=== PATIENT | female | born 1940 | race Caucasian/White ===

== ENCOUNTER → 2023-10-22 06:27 | Day surgery (SDC) | payer MEDICARE, SELFPAY ==
[2023-10-22 08:39] LABS: Glucose - Point of Care 172 mg/dl (70-99)
== END ==
LOC: GI 06:27
PROVIDERS: ATTENDING PHYSICIAN Internal Medicine Gastroenterology
DX: R13.10 Dysphagia, unspecified (principal); R12 Heartburn; Q39.9 Congenital malformation of esophagus, unspecified; K44.9 Diaphragmatic hernia without obstruction or gangrene; K31.89 Other diseases of stomach and duodenum; K29.50 Unspecified chronic gastritis without bleeding
CPT/HCPCS: 43239; 88305; 82962; 88342

== ENCOUNTER → 2023-11-11 10:27 | Outpatient (REF) | payer MEDICARE, SELFPAY ==
[2023-11-11 13:10] LABS: Urine Albumin Trace (Neg - Trace); Urine Bilirubin Negative (Negative); Urine Character Slightly Cloudy (Clear); Urine Color Yellow; Urine Glucose Negative (Negative); Urine Ketone Trace (Negative); Urine Leukocyte 2+ (Negative); Urine Nitrite Positive (Negative); Urine Occult Blood Negative (Negative); Urine Urobilinogen Negative (Neg - 1+)
[2023-11-11 14:19] LABS: Urine Amorphous Seen
[2023-11-11 14:20] LABS: Urine Bacteria Many (Negative); Urine Red Blood Cell 0-2 /HPF (0-2); Urine White Cell >100 /HPF (0-5)
== END ==
LOC: HWLAB 10:27
PROVIDERS: ATTENDING PHYSICIAN Nurse Practitioner Family; FAMILY PHYSICIAN Internal Medicine
DX: R30.0 Dysuria (principal)
CPT/HCPCS: 81003; 81015; 87077; 87086; 87186

== ENCOUNTER → 2023-11-20 11:27 | Outpatient (REF) | payer MEDICARE, SELFPAY ==
[2023-11-20 15:41] LABS: Urine Albumin 1+ (Neg - Trace); Urine Bilirubin Negative (Negative); Urine Character Slightly Cloudy (Clear); Urine Color Yellow; Urine Glucose 2+ (Negative); Urine Ketone Negative (Negative); Urine Leukocyte 2+ (Negative); Urine Nitrite Negative (Negative); Urine Occult Blood Negative (Negative); Urine Specific Gravity 1.025 (<1.030); Urine Urobilinogen Negative (Neg - 1+)
[2023-11-20 16:05] LABS: Urine Calcium Oxalate Crystals Present; Urine Red Blood Cell 0-2 /HPF (0-2)
[2023-11-20 16:06] LABS: Urine Bacteria Few (Negative)
== END ==
LOC: HWLAB 11:27
PROVIDERS: ATTENDING PHYSICIAN Nurse Practitioner Family; FAMILY PHYSICIAN Internal Medicine
DX: R30.0 Dysuria (principal)
CPT/HCPCS: 81003; 81015; 87086

== ENCOUNTER → 2023-11-30 13:02 | Outpatient (REF) | payer MEDICARE, SELFPAY | LOC: HWRAD 13:02 | PROVIDERS: ATTENDING PHYSICIAN Internal Medicine Gastroenterology; FAMILY PHYSICIAN Internal Medicine | DX: I85.00 Esophageal varices without bleeding (principal); K44.9 Diaphragmatic hernia without obstruction or gangrene | CPT/HCPCS: 76700 ==

== ENCOUNTER → 2024-01-18 13:29 | Outpatient (REF) | payer MEDICARE, SELFPAY | LOC: HWWDC 13:29 | PROVIDERS: ATTENDING PHYSICIAN Surgery; FAMILY PHYSICIAN Internal Medicine | DX: Z12.31 Encounter for screening mammogram for malignant neoplasm of breast (principal); Z80.3 Family history of malignant neoplasm of breast | CPT/HCPCS: 77063; 77067 ==

== ENCOUNTER → 2024-01-21 10:00 | Outpatient (REF) | payer MEDICARE, SELFPAY ==
[2024-01-21 12:46] LABS: % Basophils 0.9 % (0-2); % Eosinophils 6.2 % (0-6); % Immature Granulocytes 0.3 % (0-0.5); % Lymphocytes 21.5 % (20.5-51.1); % Monocytes 10.7 % (1.7-9.3); % Neutrophils 60.4 % (42.2-75.2); Absolute Basophils 0.1 10^3/uL (0-0.2); Absolute Eosinophils 0.5 10^3/uL (0-0.7); Absolute Lymphocytes 1.7 10^3/uL (1.2-3.4); Absolute Monocytes 0.9 10^3/uL (0.1-0.6); Absolute Neutrophils 4.8 10^3/uL (1.4-6.5); Hematocrit 44.4 % (37.0-47.0); Hemoglobin 14.6 g/dL (12.0-16.0); Mean Corp Hgb Conc. 32.9 g/dL (33.0-37.0); Mean Corpuscular Hgb 28.6 pg (27.0-31.0); Mean Corpuscular Volume 87.1 fL (81.0-99.0); Nucleated Red Blood Cells % 0 %; Platelet Count 431 10^3/uL (130-400); Red Cell Dist. Width 13.5 % (11.5-14.5); White Blood Cell Count 7.9 10^3/uL (4.8-10.8)
[2024-01-21 13:35] LABS: Urine Albumin Negative (Neg - Trace); Urine Bilirubin Negative (Negative); Urine Character Clear (Clear); Urine Color Yellow; Urine Glucose Negative (Negative); Urine Ketone Negative (Negative); Urine Leukocyte 1+ (Negative); Urine Nitrite Negative (Negative); Urine Occult Blood Negative (Negative); Urine Specific Gravity 1.015 (<1.030); Urine Urobilinogen Negative (Neg - 1+)
[2024-01-21 13:36] LABS: ALT (SGPT) 23 U/L (0-35); AST (SGOT) 25 U/L (14-36); Albumin 4.4 g/dl (3.5-5.0); Alkaline Phosphatase 117 U/L (38-126); Blood Urea Nitrogen 23 mg/dl (7-17); Calcium 9.8 mg/dl (8.4-10.2); Carbon Dioxide 31 mmol/L (22-30); Chloride 101 mmol/L (98-107); Glucose 188 mg/dl (70-99); HDL Cholesterol 50 mg/dl; LDL Cholesterol, Calculated 103 mg/dl; Potassium 4.6 mmol/L (3.5-5.1); Sodium 138 mmol/L (135-145); Total Bilirubin 0.8 mg/dl (0.2-1.3); Total Cholesterol 190 mg/dl (50-199); Triglyceride 187 mg/dl (10-149); Very Low Density Lipoprotein 37 mg/dl (0-30); eGFR > 60.00
[2024-01-21 13:42] LABS: Glycohemoglobin (HgbA1c) 7.9 % (4.0-5.6)
[2024-01-21 13:51] LABS: Free T4 1.18 ng/dl (0.78-2.19)
[2024-01-21 14:07] LABS: Microalbumin, Random Urine 4.4 mg/dl (0.6-1.7)
[2024-01-21 14:25] LABS: Urine Squamous Cell >30 /LPF (Few)
[2024-01-21 14:27] LABS: Urine Amorphous Seen; Urine Bacteria Many (Negative); Urine Red Blood Cell 0-2 /HPF (0-2); Urine White Cell 16-20 /HPF (0-5)
== END ==
LOC: HWLAB 10:00
PROVIDERS: ATTENDING PHYSICIAN Internal Medicine
DX: R53.1 Weakness (principal); I10 Essential (primary) hypertension; E11.9 Type 2 diabetes mellitus without complications
CPT/HCPCS: 36415; 80053; 80061; 81003; 81015; 82043; 83036; 84439; 84443; 85025

== ENCOUNTER → 2024-03-07 11:58 | Outpatient (REF) | payer MEDICARE, SELFPAY ==
[2024-03-07 15:26] LABS: Urine Albumin Negative (Neg - Trace); Urine Bilirubin Negative (Negative); Urine Character Slightly Cloudy (Clear); Urine Color Yellow; Urine Glucose 1+ (Negative); Urine Ketone Negative (Negative); Urine Leukocyte 2+ (Negative); Urine Nitrite Negative (Negative); Urine Occult Blood Negative (Negative); Urine Specific Gravity 1.015 (<1.030); Urine Urobilinogen Negative (Neg - 1+)
[2024-03-07 16:22] LABS: Urine Bacteria Many (Negative); Urine Red Blood Cell 0-2 /HPF (0-2)
== END ==
LOC: HWLAB 11:58
PROVIDERS: ATTENDING PHYSICIAN Internal Medicine Geriatric Medicine; FAMILY PHYSICIAN Internal Medicine
DX: R39.9 Unspecified symptoms and signs involving the genitourinary system (principal)
CPT/HCPCS: 36415; 81003; 81015; 87077; 87086; 87186

== ENCOUNTER 2024-07-12 06:29 | Inpatient (IN) | payer MEDICARE, SELFPAY ==
[2024-07-12] VITALS (19 sets, daily range): BP systolic 103–194; BP diastolic 67–113; BMI 28.1; BMI 27.4
--- NOTE | 2024-07-12 01:30 | ED.GENMED ---
History of Present Illness
<BRITTANIE Vasquez - Last Filed: 07/12/24 04:41>
General
Chief Complaint: Abdominal Symptoms
Source: patient
Time Seen by Provider: 07/12/24 01:28
Nursing documentation reviewed up to this point in time: agreed with
History of Present Illness
History of Present Illness:
Pt is a 83 yo F who presents to the ED via EMS for N/D. On the way to the ED, patient began to report chest pain and she states that is her causing her the most discomfort now. Pt states the nausea started yesterday and today she has had diarrhea
and dry heaving. Pt reports that the chest pain is located in the middle of her chest and does not radiate. She describes it as sharp. Pt states that she is now having pain in her throat. Pt denies vomiting, abdominal pain, fever.
Past History
<BRITTANIE Vasquez - Last Filed: 07/12/24 04:41>
Past History
ED Past Medical History: HTN and NIDDM
ED Past Surgical History: Orthopedic (Left knee surgery, rotator cuff surgery), Tonsilectomy and Other (Breast surgery); Negative Cholecystectomy
Social History
Tobacco: Non-smoker
Alcohol: Occasional
Drug: None
Personal:
Living: with family
Employment: Retired
Family History
Family History: CAD and Cancer
Review of Systems
<BRITTANIE Vasquez - Last Filed: 07/12/24 04:41>
Review of Systems
Allergies reviewed?: Yes
Constitutional: Reports no symptoms
Respiratory: Reports no symptoms
Cardiac: Reports chest pain
ABD/GI: Reports nausea and diarrhea
Neurological: Reports no symptoms
Phy Exam
<BRITTANIE Vasquez - Last Filed: 07/12/24 04:41>
General Physical Exam
General Presentation: moderate distress
General age: appears stated age
General Skin: dry
General Habitus: normal
General Mental: alert
General Hydration: dry mucous membranes
Cardiovascular Exam
Cardiovascular Exam: regular rate/rhythm
Pulmonary Exam
Pulmonary Exam: lungs clear
Gastrointestinal Exam
Gastrointestinal Exam: soft
Palpation: generalized: Minimal tenderness (epigastric)
Course
<BRITTANIE Vasquez - Last Filed: 07/12/24 04:41>
Orders/Labs/Results
Orders:
Orders
07/12/24 01:22
Electrocardiogram (*1) Urgent
Reason for Study: Chest Pain
EKG- Treatment ONCE
07/12/24 01:34
CMP [Comprehensive Metabolic Panel] Urgent
Complete Blood Count/With Diff Urgent
Lipase Urgent
Comment: ADDED
Troponin I Urgent
07/12/24 01:50
0.9% Sodium Chloride 1000 ml [Nss] 1,000 ml IV BOLUS
Morphine Sulfate 4 mg IV NOW STA
Ondansetron Injectable [Zofran] 4 mg IV NOW STA
Pantoprazole [Protonix IV] 40 mg IV NOW STA
07/12/24 03:03
Add On- LAB Urgent
Tests Added?: lipase
07/12/24 03:05
CT Chest Angio W/wo Iv Contras Urgent
Comment:
Reason For Exam: severe CP rad to back
07/12/24 03:55
Troponin I Urgent
07/12/24 04:34
Lactic Acid Urgent
07/12/24 04:35
GI tube insertion- Treatment ONCE
Abnormal Lab Results
07/12/24
01:34
WBC 12.2 H 10^3/uL
(4.8-10.8)
Plt Count 419 H 10^3/uL
(130-400)
MPV 10.9 H fL
(7.4-10.4)
Absolute Neuts (auto) 10.2 H 10^3/uL
(1.4-6.5)
Absolute Monos (auto) 0.7 H 10^3/uL
(0.1-0.6)
Neutrophils % 83.4 H %
(42.2-75.2)
Lymphocytes % 10.5 L %
(20.5-51.1)
Sodium 134 L mmol/L
(135-145)
Chloride 97 L mmol/L
(98-107)
Carbon Dioxide 19 L mmol/L
(22-30)
BUN 20 H mg/dl
(7-17)
Glucose 245 H mg/dl
(70-99)
07/12/24 01:34
07/12/24 01:34
Vital Signs
Initial and Last Documented VS:
Initial Vital Signs
Temp Pulse Resp BP Pulse Ox
98.4 F 92 14 178/85 99
07/12/24 01:23 07/12/24 01:23 07/12/24 01:23 07/12/24 01:23 07/12/24 01:23
Last Documented Vital Signs
Temp Pulse Resp BP Pulse Ox
98.4 F 96 19 156/79 91
07/12/24 01:23 07/12/24 04:15 07/12/24 04:15 07/12/24 04:00 07/12/24 04:15
<Nkechi Marquez, DO - Last Filed: 07/12/24 04:46>
Orders/Labs/Results
Orders:
Orders
07/12/24 01:22
Electrocardiogram (*1) Urgent
Reason for Study: Chest Pain
EKG- Treatment ONCE
07/12/24 01:34
CMP [Comprehensive Metabolic Panel] Urgent
Complete Blood Count/With Diff Urgent
Lipase Urgent
Comment: ADDED
Troponin I Urgent
07/12/24 01:50
0.9% Sodium Chloride 1000 ml [Nss] 1,000 ml IV BOLUS
Morphine Sulfate 4 mg IV NOW STA
Ondansetron Injectable [Zofran] 4 mg IV NOW STA
Pantoprazole [Protonix IV] 40 mg IV NOW STA
07/12/24 03:03
Add On- LAB Urgent
Tests Added?: lipase
07/12/24 03:05
CT Chest Angio W/wo Iv Contras Urgent
Comment:
Reason For Exam: severe CP rad to back
07/12/24 03:55
Troponin I Urgent
07/12/24 04:34
Lactic Acid Urgent
07/12/24 04:35
GI tube insertion- Treatment ONCE
Abnormal Lab Results
07/12/24
01:34
WBC 12.2 H 10^3/uL
(4.8-10.8)
Plt Count 419 H 10^3/uL
(130-400)
MPV 10.9 H fL
(7.4-10.4)
Absolute Neuts (auto) 10.2 H 10^3/uL
(1.4-6.5)
Absolute Monos (auto) 0.7 H 10^3/uL
(0.1-0.6)
Neutrophils % 83.4 H %
(42.2-75.2)
Lymphocytes % 10.5 L %
(20.5-51.1)
Sodium 134 L mmol/L
(135-145)
Chloride 97 L mmol/L
(98-107)
Carbon Dioxide 19 L mmol/L
(22-30)
BUN 20 H mg/dl
(7-17)
Glucose 245 H mg/dl
(70-99)
07/12/24 01:34
07/12/24 01:34
Vital Signs
Initial and Last Documented VS:
Initial Vital Signs
Temp Pulse Resp BP Pulse Ox
98.4 F 92 14 178/85 99
07/12/24 01:23 07/12/24 01:23 07/12/24 01:23 07/12/24 01:23 07/12/24 01:23
Last Documented Vital Signs
Temp Pulse Resp BP Pulse Ox
98.4 F 96 19 156/79 91
07/12/24 01:23 07/12/24 04:15 07/12/24 04:15 07/12/24 04:00 07/12/24 04:15
<BRITTANIE Vasquez - Last Filed: 07/12/24 04:41>
MDM/Problems Addressed
Differential Diagnosis Includes:
Acute pancreatitis, UT
<BRITTANIE Vasquez - Last Filed: 07/12/24 04:41>
*Critical Care Note
Total Time (30-74mins, 75-104mins- exclusive of procedures): Not Applicable
<Nkechi Marquez DO - Last Filed: 07/12/24 04:46>
*Radiology
Radiology exam reviewed: radiology read reviewed
*Pulse Oximetry
Patient hypoxic: no
*EKG
Interpreted by ED Provider?: Yes
Interpretation: normal
Comparison EKG: no changes (Unchanged from previous May 2023)
Rate: normal
Rhythm: sinus
Pony: normal axis
Interval: normal interval
QRS Pattern: normal QRS
Ischemia: no ischemia
*Canoe Inspector Interpretation
Rate: normal
Interpretation: normal
Rhythm: sinus
ED Attending Note
<BRITTANIE Vasquez - Last Filed: 07/12/24 04:41>
-
Portions of this chart may have been created with voice recognition software.� Occasional wrong word or��sound alike� substitutions may have occurred due to the inherent limitations of voice recognition software.
<Nkechi Marquez DO - Last Filed: 07/12/24 04:46>
ED Attending Note
Patient seen and examined by attending physician: Yes
I performed the substantive portion of visit, reviewed & personally made and approve the management plan that is documented in note by myself or MARIANGEL.: Yes
ED Attending Note:
This is an 83-year-old woman with history of hypertension, hyperlipidemia, irritable bowel syndrome, [id number] diabetes who complains of nausea, dry heaves that began yesterday, persisted throughout the day today accompanied with
nonbloody diarrhea throughout the day today. She continues with nausea, dry heaves and presents tonight with complaints of epigastric, lower substernal chest pain that has been intermittent, worse with dry heaves and occasionally radiates to her
back. Epigastric, lower substernal chest pain described as a pressure, burning in nature.
She has not had a fever nor chills. No coughing or shortness of breath. No diaphoresis no dizziness, no arm pain nor weakness.
GENERAL: 83-year-old woman appears her stated age, awake and alert, appears in moderate distress, moderately uncomfortable, somewhat restless. Easily communicative. Mildly hypertensive. Normal heart rate, normal respiratory rate, afebrile. Pulse
ox is 99% on room air.
EYE: pupils equal and reactive. anicteric
NECK: Supple, nontender, no meningismus, no significant adenopathy.
ENT: posterior pharynx is clear, oral mucosa is dry. No rhinorrhea.
CARDIAC: Regular rate and rhythm. no murmur.
LUNGS: Clear breath sounds bilaterally, no acute respiratory distress, no wheezes/rales/rhonchi
ABDOMEN: Soft, nondistended, minimal tenderness superior epigastric region with deep palpation only, no r/g, no cvat. normoactive BS.
NEUROLOGICAL: Alert and oriented x3, no focal neuro deficits.
SKIN: Warm and dry, normal color, skin intact. No rash.
MUSCULOSKELETAL: No C/C/E. peripheral pulses are full and equal b/l. No palpable tenderness.
PSYCH: Mildly anxious related to pain, somewhat restless but cooperative.
Concern for acute gastroenteritis, ACS, GERD, pancreatitis, cholecystitis, aortic dissection.
EKG is reassuring, unremarkable and unchanged from previous May 2023.
Labs are pending.
Clinically patient appears at least mildly dehydrated. Will initiate IV fluids, will medicate for nausea with Zofran, potential GERD with Protonix and will give an IV dose of morphine for pain.
Will consider imaging depending on clinical course and results.
Patient is somewhat more comfortable after IV pain medication, Protonix and Zofran. She has had no vomiting but continues with moderate lower substernal chest pain and continues with persistent nausea.
Labs show mildly elevated white blood cell count, mild prerenal azotemia. Moderately elevated random glucose of 245. Troponin is negative x 2.
CT angiogram of the chest shows no dissection, no PE, clear lung gaxiola but there is note of a very large hiatal hernia, with most of the stomach in the chest that is moderately distended. With ongoing discomfort, nausea concern for potential
incarcerated hiatal hernia thus will check lactic acid and will insert NG tube.
Will continue IV fluids, will admit to hospitalist service. Consider surgical consult.
Discharge Plan
Departure
Patient Disposition: Admit
Date of Disposition: 07/12/24
Time of Disposition: 04:45
Admit to: Med/Surg
Admit to doctor: Manny
Presentation/result/management discussed w/ accepting MD/DO: Hospitalist
Condition: Fair
Discharge Problem:
Intractable nausea and vomiting, Large hiatal hernia
Prescriptions:
No Action
atenolol 25 MG tablet
25 mg PO HS
omeprazole 20 MG capsule,delayed release(DR/EC)
20 mg PO DAILY
metformin 500 MG tablet extended release 24 hr
500 mg PO BID@0800,1700
celecoxib [Celebrex] 200 mg Capsule
200 mg PO DAILY
atorvastatin [Lipitor] 20 mg Tablet
20 mg PO HS
loperamide 2 mg Tablet
2 mg PO Q4HPRN PRN (Reason: diarrhea)
famotidine [Pepcid] 20 mg Tablet
20 mg PO HS
sertraline 25 mg Tablet
25 mg PO QPM
gabapentin 100 mg Capsule
200 mg PO HS
gabapentin 100 mg Capsule
300 mg PO DAILY
vitamin E 268 mg (400 unit) Capsule
268 mg PO DAILY
cholecalciferol (vitamin D3) [Vitamin D3] 25 mcg (1,000 unit) Capsule
25 mcg PO DAILY
coQ10 (ubiquinol) 100 mg Capsule
100 mg PO DAILY
Interventions
Interventions:
*Risk Screen - Suicide Last Done: 07/12/24 01:23
*General Assessment Last Done: 07/12/24 01:23
*Neglect/Abuse Screening Last Done: 07/12/24 01:23
ED- Fall Risk Assessment Last Done: 07/12/24 02:03
*ED COVID-19 Vaccine History Last Done: 07/12/24 01:23
SD-Quyast-Hrzalfanir Assessment Last Done: 07/12/24 02:03
Discharge Date and Time
Print Language: SETSWANA
[2024-07-12 01:44] LABS: % Basophils 0.2 % (0-2); % Eosinophils 0.2 % (0-6); % Immature Granulocytes 0.3 % (0-0.5); % Lymphocytes 10.5 % (20.5-51.1); % Monocytes 5.4 % (1.7-9.3); % Neutrophils 83.4 % (42.2-75.2); Absolute Lymphocytes 1.3 10^3/uL (1.2-3.4); Absolute Monocytes 0.7 10^3/uL (0.1-0.6); Absolute Neutrophils 10.2 10^3/uL (1.4-6.5); Hematocrit 43.9 % (37.0-47.0); Hemoglobin 14.6 g/dL (12.0-16.0); Mean Corp Hgb Conc. 33.3 g/dL (33.0-37.0); Mean Corpuscular Hgb 29.7 pg (27.0-31.0); Mean Corpuscular Volume 89.2 fL (81.0-99.0); Mean Platelet Volume 10.9 fL (7.4-10.4); Nucleated Red Blood Cells % 0 %; Platelet Count 419 10^3/uL (130-400); Red Blood Cell Count 4.92 10^6/uL (4.20-5.40); Red Cell Dist. Width 12.9 % (11.5-14.5); White Blood Cell Count 12.2 10^3/uL (4.8-10.8)
[2024-07-12] MEDS: ZOFRAN 4 MG IV ×3 (01:56→22:26)
[2024-07-12 01:59] LABS: ALT (SGPT) 23 U/L (0-35); AST (SGOT) 29 U/L (14-36); Albumin 4.8 g/dl (3.5-5.0); Alkaline Phosphatase 109 U/L (38-126); Blood Urea Nitrogen 20 mg/dl (7-17); Calcium 9.4 mg/dl (8.4-10.2); Carbon Dioxide 19 mmol/L (22-30); Chloride 97 mmol/L (98-107); Estimated Creatinine Clearance 56 ml/min; Glucose 245 mg/dl (70-99); Potassium 4.4 mmol/L (3.5-5.1); Sodium 134 mmol/L (135-145); Total Bilirubin 0.8 mg/dl (0.2-1.3); Total Protein 7.3 g/dl (6.3-8.2); eGFR > 60.00
[2024-07-12] MEDS: PROTONIX IV 40 MG IV ×2 (02:00→19:46)
[2024-07-12] MEDS: MORPHINE SULFATE 4 MG IV (02:00)
[2024-07-12] MEDS: NSS 1000 IV ×2 (02:00→13:52)
[2024-07-12 02:09] LABS: Troponin I < 0.012 ng/ml
--- NOTE | 2024-07-12 02:46 | EDRN ---
Assisted patient to bedside commode and back in bed resting, reports still nauseated, however has not vomited, Dr. Marquez is aware
--- NOTE | 2024-07-12 03:56 | EDRN ---
Patient back from CT scan, assisted ot bedside commode to urinate and hooked back up to monitor, repeat troponin sent and lights turned down for comfort, call juarez in reach.
[2024-07-12 04:02] LABS: Lipase 119 U/L (23-300)
--- NOTE | 2024-07-12 04:23 | EDRN ---
Patient up to bedside commode to urinate and back in bed resting comfortably at this time, call juarez in reach.
[2024-07-12 04:29] LABS: Troponin I < 0.012 ng/ml
--- NOTE | 2024-07-12 05:00 | EDRN ---
Purwick in place for patient, call juarez in reach no further complaints.
[2024-07-12 05:41] LABS: Lactic Acid 0.9 mmol/L (0.7-2.0)
--- NOTE | 2024-07-12 06:26 | EDRN ---
NG tube was attempted twice both times tube goes in and she starts to drive heave expelling it into her mouth, informed Dr. Bryant who is in to work on admission.
[2024-07-12] MEDS: DILAUDID 0.5 MG IV ×3 (06:33→22:29)
--- NOTE | 2024-07-12 06:50 | HPS.HSE ---
Family Physician
-
Family Physician: Gurvinder Fink
Chief Complaint
-
Chest Pain / Back Pain
History of Present Illness
Patient is an 83y F with PMH significant for GERD / hiatal hernia, DM-II and DDD / back pain who presents to ED complaining of N/V, chest pain and back pain. Patient states that she has appreciated increased symptoms which she attributes to her
hiatal hernia over the past week or two. She cites reflux, epigastric discomfort and decreased appetite. She ran out of her omeprazole about 10 days ago and has been unable to get this refilled.
Yesterday, patient began to feel nauseated and started to have retching / dry heaves. She had a few episodes of actual non-bloody emesis.
Her symptoms lasted into the evening and patient presented to the ED for further evaluation and treatment.
Upon arrival here, patient developed severe chest pain and midback pain.
CT scan was performed which showed large hiatal hernia with entire stomach in the thoracic cavity.
NG placement was attempted unsuccessfully by ED staff. Patient had difficulty tolerating the procedure.
Medical History
Past Medical History
Past Medical History: Reports Other
Additional Past Medical History:
Hypertension
DM-II
GERD / Hiatal Hernia
Lumbar DDD / Radiculopathy
Fibrocystic Breast Disease
Past Surgical History: Reports Other
Additional Past Surgical History:
Bilateral Breast Biopsies (benign)
Left TKA
MILD Procedure (2023)
Left Rotator Cuff Repair
Social History
Tobacco: Non-smoker
Alcohol: Occasional (Rarely)
Drug: None
Family History
Family History: Not pertinent
Allergies / Home Medications
Allergies reflects when Allergies were last updated in [facility].
Home Medications with original date entered in [facility]
Allergy/Medication List:
Patient cannot recall her current med list. Will need form med rec in the AM.
Review of Systems
-
History Source: Patient
A 12 point ROS was completed and negative except as noted: Yes
Constitutional: Reports Fatigue; Denies Fever or Chills
EENT: Denies Sore Throat
Respiratory: Denies Cough or Trouble Breathing
Cardiac: Reports Chest Pain; Denies Palpitations
Abdomen/GI: Reports Abdominal Pain, Nausea, Vomiting and Diarrhea
: Denies Dysuria or Frequency
Musculoskeletal: Denies Joint Pain or Edema
Neurological: Denies Dizzy or Headache
Psych: Denies Depression or Anxiety
Physical Exam
Vital Signs
Vital Signs
Temp Pulse Resp BP Pulse Ox
98.4 F 102 15 158/67 94
07/12/24 01:23 07/12/24 04:45 07/12/24 04:45 07/12/24 05:00 07/12/24 04:45
Physical Exam
General: Other (83y F in mild distress due to discomfort.)
HEENT: Other (Dry MM. Neck supple.)
Respiratory: Clear; No Wheezes, Rales or Rhonchi
Cardiac: S1/S2 and Regular Rhythm; No Murmur
GI: Soft, Non Tender, Non Distended and Normal Bowel Sounds
Musculoskeletal: No Clubbing, No Cyanosis and No Edema
Neuro: AO x 3
Laboratory Results
-
07/12/24 01:34
07/12/24 01:34
Laboratory Results
Lactic Acid 0.9 mmol/L (0.7-2.0) 07/12/24 04:37
Total Bilirubin 0.8 mg/dl (0.2-1.3) 07/12/24 01:34
AST 29 U/L (14-36) 07/12/24 01:34
ALT 23 U/L (0-35) 07/12/24 01:34
Alkaline Phosphatase 109 U/L (38-126) 12/17/24 01:34
Troponin I < 0.012 ng/ml 07/12/24 03:55
Lipase 119 U/L (23-300) 07/12/24 01:34
Impression/Plan
-
A/P: Patient is an 83y F with PMH significant for HTN, DM-II and hiatal hernia who presents to ED complaining of N/V and chest pain.
Hiatal Hernia / GERD
Nausea / Chest Pain secondary to the above
- Admit for further evaluation and treatment.
- CT done in the ED shows large hiatal hernia with entire stomach in the thoracic cavity.
- Attempt NG decompression if patient will tolerate.
- Pain control, IV PPI, supportive care.
- GI and Surgery evaluations for additional recommendations.
- Follow for any new / worsening symptoms.
- Lactate level was normal.
Benign Hypertension
- BP elevated in the ED likely due to discomfort.
- Continue pain control.
DM-II
- Stable. Follow glucose and cover with SSI as needed.
- Update A1C.
Lumbar DDD / Radiculopathy
- Chronic pain secondary to the above.
- Not much improvement following MILD procedure earlier this year.
- Holding PO meds for now - resume gabapentin / pain control once able.
DVT Prophylaxis: SCDs
Code Status: Full
--- NOTE | 2024-07-12 11:46 | CON.GS ---
Medical History
-
Chief Complaint: Chest/abdominal pain
History of Present Illness:
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
radiating to her central back. Symptoms began on Thursday. No clear history of eating a large bulky meal. She reports poor appetite over the past week. She she eats mostly small soft meals. No recent weight loss. She has issues with reflux, as
well as issues with medical noncompliance due to obtaining PPI medications. Occasional regurgitation. She denies any prior episodes of obstruction, nausea, or vomiting. No hemoptysis. Her last EGD was on 10/22/2023 and notable for a tortuous
esophagus and large paraesophageal hernia. Workup in the ED was notable for a leukocytosis to 12, no significant anemia with Hb 14, hyponatremia and hypokalemia consistent with gastric volume loss, and CT scan of the chest with no evidence of a
aneurysm or dissection and a large paraesophageal hernia.
Currently she states that her symptoms have resolved. She denies any chest or abdominal discomfort. No nausea or vomiting.
Past Medical History
Past Medical History: GERD, HTN, NIDDM and Other (Lumbar back pain, obesity)
Past Surgical History: Orthopedic (MILD procedure, L TKA) and Other (Bl breast biopsy)
Social History
Tobacco: Non-Smoker
Alcohol: None
Drug: None
Family History
Family History: Reviewed & Not Pertinent
Allergies / Home Medications
Allergy/AdvReac Type Severity Reaction Status Date / Time
nitrofurantoin Allergy Intermediate Rash Verified 07/12/24 01:27
[From Macrodantin]
sulfamethoxazole Allergy Mild Rash Verified 07/12/24 01:27
[From Bactrim]
trimethoprim [From Bactrim] Allergy Mild Rash Verified 07/12/24 01:27
�Medication �Instructions �Recorded �Confirmed �Type
atenolol 25 mg tablet 25 mg PO HS Blood Pressure 04/01/17 07/12/24 History
metformin 500 mg tablet,extended 500 mg PO BID Diabetes 04/01/17 07/12/24 History
release 24 hr
omeprazole 20 mg capsule,delayed 20 mg PO DAILY Gastrointestinal 04/01/17 07/12/24 History
release Issue
atorvastatin 20 mg tablet (Lipitor) 20 mg PO HS High Cholesterol 05/29/23 07/12/24 History
celecoxib 200 mg capsule (Celebrex) 200 mg PO DAILY Pain 05/29/23 07/12/24 History
cholecalciferol (vitamin D3) 25 25 mcg PO DAILY Supplement 05/29/23 07/12/24 History
mcg (1,000 unit) capsule (Vitamin
D3)
gabapentin 100 mg capsule 200 mg PO BID Pain 05/29/23 07/12/24 History
sertraline 25 mg tablet 25 mg PO QPM Mental Health/Anxiety 05/29/23 07/12/24 History
vitamin E 268 mg (400 unit) capsule 268 mg PO DAILY Supplement 05/29/23 07/12/24 History
acetaminophen 500 mg tablet 1,000 mg PO BID 07/12/24 07/12/24 History
(Tylenol Extra Strength)
alprazolam 0.25 mg tablet (Xanax) 0.25 mg PO DAILYPRN PRN panic 07/12/24 07/12/24 History
attacks
amlodipine 5 mg-benazepril 40 mg 1 cap PO DAILY 07/12/24 07/12/24 History
capsule
azithromycin 250 mg tablet 250 mg PO DAILY 07/12/24 07/12/24 History
propranolol 60 mg capsule,24 60 mg PO HS 07/12/24 07/12/24 History
hr,extended release
Review of Systems
-
A 10 point review of systems was completed, and was negative except as per HPI.
Physical Exam
Vital Signs
Temp Pulse Resp BP Pulse Ox
98.4 F 102 12 115/86 96
07/12/24 01:23 07/12/24 11:00 07/12/24 11:00 07/12/24 11:00 07/12/24 11:00
07/11/24 07/12/24 07/13/24
06:59 06:59 06:59
Actual Weight 63 kg
Body Mass Index (BMI) 28.1
Lab Results
07/12/24 01:34
07/12/24 01:34
WBC 12.2 10^3/uL (4.8-10.8) H 07/12/24 01:34
Hgb 14.6 g/dL (12.0-16.0) 07/12/24 01:34
Hct 43.9 % (37.0-47.0) 07/12/24 01:34
Plt Count 419 10^3/uL (130-400) H 07/12/24 01:34
Abs Immat Gran (auto) 0.0 10^3/uL (0-0.05) 07/12/24 01:34
Neutrophils % 83.4 % (42.2-75.2) H 07/12/24 01:34
Physical Exam
General: Well Developed, Well Nourished and No Apparent Distress
HEENT: Normocephalic and Anicteric
Respiratory: Non Labored Respirations
Cardiac: Regular Rhythm
GI: Soft, Non Tender, Non Distended and Other (Non-peritoneal)
Musculoskeletal: No Edema
Skin: Warm and Dry
Neuro: Nonfocal/Grossly Intact
Data Reviewed
-
CT Scan: Image Personally Visualized and interpreted and Report Reviewed by me
Labs: Labs Reviewed by me
Old Records: Reviewed
Assessment / Plan
-
Patient is an 83 yo F p/w GOO secondary to large type III paraesophageal hernia
Clinical symptoms of abdominal/chest discomfort and nausea have resolved; indicative that she is spontaneously decompressing. Discussed utility of NGT which was attempted overnight, okay to hold off on repeated placement at this time, however, we
discussed that should she develop recurrent symptoms would recommend placement. The natural history and pathophysiology of paraesophageal hernias was discussed. Workup including prior EGD and CT scan were reviewed. We discussed a laparoscopic
paraesophageal hernia repair with possible fundoplication. Operative repair is indicated given her symptomatic nature with GERD and dysphagia. No need for urgent repair at this time. Tentative plan for period of decompression with NPO and IVF.
Tentative plan for a UGI to confirm passage of contrast and lack of obstruction prior to initiating a clear liquid diet. Will tentatively plan on discharge on full liquids for 1 to 2 weeks with slow advancement back to a soft diet. Plan for
outpatient follow-up to further discuss and finalize plans for operative repair. All questions answered.
-- Admit to Medicine
-- NPO, IVF
-- UGI tomorrow
-- PPI daily
-- Pending above, outpatient follow-up to further discuss and finalize operative plans
--- NOTE | 2024-07-12 11:47 | W.PN.HOSP.TC ---
Today's Communication/Plan
-
Surgery eval
NPO till surgery see pt
Assessment / Plan
Assessment / Plan
83-year-old female presented with chest pain and back pain. Acid reflux symptoms she ran out of Prilosec 10 days ago and unable to get refilled. Patient felt nauseated. She said she has not been following precautions like small meals, head
elevation, etc. Also ran out of PPI
CT angiography of the chest-no evidence of thoracic artery aneurysm or dissection. Moderate coronary calcification. Large hiatal hernia.
CVS: S1-S2 normal
Chest: CTA B/L
Abdomen: Soft, NT / Bowel sounds present
Extremities: No edema, normal pulses
DISEASE INTERVENTION SPECIALIST: Non focal exam
# Symptomatic hiatal hernia/GERD
CT shows large hiatal hernia with end of stomach and thoracic cavity
Attempts at NG tube decompression-patient did not tolerate
Continue PPI supportive care
EGD 10/14/2023-tortuous esophagus with possible varices. Erythematous mucosa in the antrum biopsied large hiatal hernia with gastric rotation
Hold NSAIDs
Surgery consultation
# Hypertension-on atenolol as outpatient. Propranolol is also part of the med list need to confirm.
Patient is also on amlodipine/benazepril as outpatient
As needed IV meds while n.p.o.
# History of esophageal varices-ultrasound of the liver normal echotexture and size. No cirrhosis.
# Mild hyponatremia-follow
# Diabetes-on metformin 5 mg twice daily as outpatient
Accu-Cheks and sliding scale coverage
# Anxiety-hold sertraline. On Xanax as needed as outpatient. Use Ativan as needed while n.p.o.
# Hyperlipidemia-hold Lipitor while n.p.o.
# Lumbar radiculopathy/DDD
# DVT prophylaxis-SCDs
# Full code
D/w Daughter at bed side
Discussed with GI. Will cancel consultation
Anticipated Discharge: 24 - 48 hours
Subjective/Interval History
-
Date of Service: July 12, 2024
Objective Data
-
Labs:
Laboratory Results
07/12/24
01:34
WBC 12.2 H
Hgb 14.6
Hct 43.9
Plt Count 419 H
Sodium 134 L
Potassium 4.4
Chloride 97 L
Carbon Dioxide 19 L
BUN 20 H
Creatinine 0.6
Glucose 245 H
Calcium 9.4
Total Bilirubin 0.8
AST 29
ALT 23
Alkaline Phosphatase 109
Vital Signs:
Vital Signs
Temp Pulse Resp BP Pulse Ox
98.4 F 102 12 115/86 96
07/12/24 01:23 07/12/24 11:00 07/12/24 11:00 07/12/24 11:00 07/12/24 11:00
[2024-07-12 14:03] LABS: Glucose - Point of Care 129 mg/dl (70-99)
--- NOTE | 2024-07-12 14:54 | CM ---
Chart reviewed. Here for symptomatic hiatal hernia. She lives alone in a [facility] home. She's independent with walker. She drives. She is retired. No +SDOHs. Receiving home PT/OT with [facility]. She has active PCP and pharmacy.
ANTICIPATED DISCHARGE PLAN: Home with [facility] services, when medically cleared.
[2024-07-12 15:13] LABS: Urine Albumin 2+ (Neg - Trace); Urine Bilirubin Negative (Negative); Urine Character Clear (Clear); Urine Color Yellow; Urine Glucose 1+ (Negative); Urine Ketone 2+ (Negative); Urine Leukocyte 2+ (Negative); Urine Nitrite Negative (Negative); Urine Occult Blood 1+ (Negative); Urine Urobilinogen Negative (Neg - 1+)
[2024-07-12 15:32] LABS: Urine Bacteria Many (Negative); Urine Red Blood Cell 0-2 /HPF (0-2); Urine Squamous Cell 0-2 /LPF (Few); Urine White Cell 21-25 /HPF (0-5)
--- NOTE | 2024-07-12 16:15 | PTCARENOTE ---
Addendum entered by Moira Kraft RN 07/12/24 18:48:
No relief of nausea from zofran IV. Dr. Ferrara notified, Tigan ordered and given. Pt also c/o throat pain, medicated with dilaudid IV with moderate relief noted.
Original Note:
Received from ED, c/o nausea. BP elevated 150/100. Allowing pt to settle in room, will recheck BP. Medicated with zofran, no vomiting at present.
[2024-07-12] MEDS: NOVOLOG FLEXPEN-MODERATE RESISTANCE SC ×3 (16:48→19:05)
[2024-07-12] MEDS: PROTONIX IV IV (16:48)
[2024-07-12] MEDS: NSS (PRESERVATIVE FREE) IV (16:49)
[2024-07-12 17:24] LABS: Glucose - Point of Care 163 mg/dl (70-99)
[2024-07-12] MEDS: TIGAN 200 MG IM (17:53)
[2024-07-12] MEDS: NSS (PRESERVATIVE FREE) 10 ML IV (19:46)
[2024-07-13] VITALS (7 sets, daily range): BP systolic 142–183; BP diastolic 76–109; BMI 27.7
[2024-07-13 00:13] LABS: Glucose - Point of Care 175 mg/dl (70-99)
[2024-07-13] MEDS: NSS 1000 IV ×4 (01:52→22:14)
[2024-07-13 06:23] LABS: Glucose - Point of Care 126 mg/dl (70-99)
[2024-07-13] MEDS: NOVOLOG FLEXPEN-MODERATE RESISTANCE SC ×2 (08:11→12:01)
[2024-07-13 08:13] LABS: Hematocrit 39.7 % (37.0-47.0); Mean Corp Hgb Conc. 32.7 g/dL (33.0-37.0); Mean Corpuscular Hgb 29.8 pg (27.0-31.0); Mean Corpuscular Volume 91.1 fL (81.0-99.0); Mean Platelet Volume 10.9 fL (7.4-10.4); Platelet Count 366 10^3/uL (130-400); Red Blood Cell Count 4.36 10^6/uL (4.20-5.40); Red Cell Dist. Width 13.1 % (11.5-14.5); White Blood Cell Count 11.4 10^3/uL (4.8-10.8)
[2024-07-13] MEDS: NSS (PRESERVATIVE FREE) 10 ML IV ×2 (08:17→19:23)
[2024-07-13] MEDS: PROTONIX IV 40 MG IV ×2 (08:17→19:25)
[2024-07-13 08:46] LABS: Blood Urea Nitrogen 20 mg/dl (7-17); Calcium 8.8 mg/dl (8.4-10.2); Carbon Dioxide 24 mmol/L (22-30); Chloride 100 mmol/L (98-107); Estimated Creatinine Clearance 46 ml/min; Glucose 121 mg/dl (70-99); Sodium 134 mmol/L (135-145); eGFR > 60.00
[2024-07-13 08:49] LABS: Glycohemoglobin (HgbA1c) 7.3 % (4.0-5.6)
[2024-07-13] MEDS: STERILE WATER FOR INJECTION 10 ML IV ×2 (09:39→17:44)
[2024-07-13] MEDS: MAXIPIME 1000 MG IV ×2 (09:39→17:45)
[2024-07-13] MEDS: NSS (PRESERVATIVE FREE) 0.5 ML IV ×2 (09:40→12:24)
[2024-07-13] MEDS: ATIVAN 1 MG IV ×2 (09:40→12:23)
--- NOTE | 2024-07-13 11:23 | W.PN.GS2 ---
Addendum entered and electronically signed by Geovani Bellamy MD 07/13/24 11:41:
Addendum: Nursing unable to place NGT. GI consult for endoscopic placement.
Original Note:
Today's Communication / Plan
-
NPO
NGT
UGI
Assessment / Plan
-
83F with type III PEH and recurrent nausea
Intermittent tachycardia and HTN, afebrile, anxious, nt on exam
Mild leukocytosis improving
Planned UGI delayed by nausea/anxiety
Plan:
NPO/IVF
Place NGT
Ativan 1mg IV given for anxiety
Allow 2 hours decompression and proceed with UGI
Further mgmt will be guided by imaging results
All other care as per primary team
Subjective Data
-
Date of Service: July 13, 2024
Worsening nausea this am, exacerbated by anxiety (takes PRN xanax at home), denies pain
Objective Data
-
Intake and Output
07/12/24 07/13/24 07/14/24
06:59 06:59 06:59
Intake Total 1200 / 1200
Output Total 300 / 300
Balance 900 / 900
Intake:
Oral fluids 0 / 0
IV fluids (Total) 1200 / 1200
Output:
Urine, Voided 300 / 300
Other:
Number of approximated MODERATE 4
amounts of urine
How many times incontinent 1
SATURATED amount urine
Vital Signs
Temp Pulse Resp BP Pulse Ox
99.3 F 95 18 182/91 100
07/13/24 07:00 07/13/24 07:00 07/13/24 07:00 07/13/24 07:00 07/13/24 07:00
Lab Results
07/13/24 07:47
07/13/24 07:47
Calcium 8.8 mg/dl (8.4-10.2) 07/13/24 07:47
Total Bilirubin 0.8 mg/dl (0.2-1.3) 07/12/24 01:34
AST 29 U/L (14-36) 07/12/24 01:34
ALT 23 U/L (0-35) 07/12/24 01:34
Alkaline Phosphatase 109 U/L (38-126) 07/12/24 01:34
Total Protein 7.3 g/dl (6.3-8.2) 07/12/24 01:34
Albumin 4.8 g/dl (3.5-5.0) 07/12/24 01:34
Physical Exam
-
Gen: Anxious
Abd: soft, nt
[2024-07-13 11:51] LABS: Glucose - Point of Care 199 mg/dl (70-99)
--- NOTE | 2024-07-13 12:55 | W.PN.UPDATE ---
Update Note
Progress Note Update
difficulty with placing NGT. Assisted Dr. Bellamy and NGT placed at 35-40cm to get X ray to confirm placement. If not adequately placed may need EGD with placement.
--- NOTE | 2024-07-13 14:54 | W.PN.HOSP.TC ---
Today's Communication/Plan
-
NG tube
IV fluids
Antibiotics
Assessment / Plan
Assessment / Plan
83-year-old female presented with chest pain and back pain. Acid reflux symptoms she ran out of Prilosec 10 days ago and unable to get refilled. Patient felt nauseated. She said she has not been following precautions like small meals, head
elevation, etc. Also ran out of PPI
CT angiography of the chest-no evidence of thoracic artery aneurysm or dissection. Moderate coronary calcification. Large hiatal hernia.
CVS: S1-S2 tachy
Chest: CTA B/L
Abdomen: Soft, Bowel sounds present
Extremities: No edema
# Symptomatic hiatal hernia/GERD
CT shows large hiatal hernia with end of stomach and thoracic cavity
Attempts at NG tube decompression-patient did not tolerate on 07/12/24. Placed by GI and surgery with difficulty on 07/13/2024
Continue PPI supportive care
EGD 10/14/2023-tortuous esophagus with possible varices. Erythematous mucosa in the antrum biopsied large hiatal hernia with gastric rotation
Hold NSAIDs
Surgery consultation appreciated
NG tube decompression and consider upper GI series tomorrow
# Hypertension-on atenolol as outpatient. Propranolol is also part of the med list need to confirm.
Patient is also on amlodipine/benazepril as outpatient
Metoprolol 2.5 mg IV every 6 and hydralazine as needed
Pain and neck CT and stress for the NG tube could be driving blood pressure up now
As needed IV meds while n.p.o.
# Dysuria with Klebsiella UTI-cefepime ordered
# History of esophageal varices-ultrasound of the liver normal echotexture and size. No cirrhosis.
# Mild hyponatremia-follow
# Diabetes-on metformin 500 mg twice daily as outpatient.Accu-Cheks and sliding scale coverage
# Anxiety-Hold sertraline. On Xanax as needed as outpatient. Use Ativan as needed while n.p.o.
# Hyperlipidemia-Hold Lipitor while n.p.o.
# Lumbar radiculopathy/DDD
# DVT prophylaxis-Lovenox
# Full code
D/w surgeon at bed side
D/W RN
Discussed with GI at bedside. If NG tube is failing to decompress she may need EGD tomorrow
Spoke to patient's daughter and updated. Also discussed with her to look into atenolol and propranolol to see if the patient is on both.
Also discussed about Zithromax if she is supposed to be on that daily. She will find out that out and let me know.
Time spent more than 50 minutes
Anticipated Discharge: > 48 hours
Subjective/Interval History
-
Date of Service: July 13, 2024
Objective Data
-
Labs:
Laboratory Results
07/13/24
07:47
WBC 11.4 H
Hgb 13.0
Hct 39.7
Plt Count 366
Sodium 134 L
Potassium 4.0
Chloride 100
Carbon Dioxide 24
BUN 20 H
Creatinine 0.7
Glucose 121 H
Calcium 8.8
Vital Signs:
Vital Signs
Temp Pulse Resp BP Pulse Ox
98.2 F 110 20 183/109 99
07/13/24 11:00 07/13/24 11:00 07/13/24 11:00 07/13/24 11:00 07/13/24 11:00
I&O
07/12/24 07/13/24 07/14/24
06:59 06:59 06:59
Intake Total 1200 / 1200
Output Total 300 / 300
Balance 900 / 900
--- NOTE | 2024-07-13 15:00 | PTCARENOTE ---
07/13- Patient's HR has been sustaining in Sinus Tachycardia with HR between 120s-130s despite administration of Ativan 1mg twice as per GI. Notified Physician. See further orders for further interventions.
--- NOTE | 2024-07-13 15:28 | CM ---
CM reviewed chart, anticiapted discharge >48 hours. NG tube placed today. Patient remains on IV antibiotics. CM will continue to follow for all discharge planning needs.
Plan; home with [facility] when stable
[2024-07-13 17:09] LABS: Glucose - Point of Care 252 mg/dl (70-99)
[2024-07-13] MEDS: NOVOLOG FLEXPEN-MODERATE RESISTANCE 5 UNITS SC (17:12)
[2024-07-13] MEDS: LOVENOX 40 MG SC (17:44)
[2024-07-13] MEDS: LOPRESSOR 2.5 MG IV (17:46)
[2024-07-13] MEDS: ZOFRAN 4 MG IV (17:48)
[2024-07-13] MEDS: ATIVAN 0.25 MG IV (19:31)
[2024-07-13] MEDS: NSS (PRESERVATIVE FREE) 0.125 ML IV (19:33)
[2024-07-13 23:59] LABS: Glucose - Point of Care 156 mg/dl (70-99)
[2024-07-14] VITALS (23 sets, daily range): BP systolic 121–186; BP diastolic 83–125; BMI 27.2
[2024-07-14] MEDS: ZOFRAN 4 MG IV (00:49)
[2024-07-14] MEDS: LOPRESSOR 2.5 MG IV ×3 (00:50→13:19)
[2024-07-14] MEDS: MAXIPIME 1000 MG IV ×3 (00:54→19:14)
[2024-07-14] MEDS: STERILE WATER FOR INJECTION 10 ML IV ×3 (00:54→19:15)
[2024-07-14] MEDS: ATIVAN 0.25 MG IV ×2 (01:54→10:11)
[2024-07-14] MEDS: NSS (PRESERVATIVE FREE) 0.125 ML IV ×2 (01:55→10:10)
[2024-07-14 06:12] LABS: Glucose - Point of Care 137 mg/dl (70-99)
[2024-07-14] MEDS: NOVOLOG FLEXPEN-MODERATE RESISTANCE SC ×3 (06:59→17:31)
[2024-07-14] MEDS: PROTONIX IV 40 MG IV ×2 (08:00→20:05)
[2024-07-14] MEDS: NSS (PRESERVATIVE FREE) 10 ML IV ×2 (08:00→20:06)
[2024-07-14] MEDS: NSS 1000 IV ×3 (08:03→23:03)
--- NOTE | 2024-07-14 09:29 | PTCARENOTE ---
07/14- Patient continues to be significantly anxious with sustained high blood pressures and HRs in 110s-120s in Sinus Tachycardia despite BID PRN Ativan. Practiced validation, listening and calming conversation which temporarily helps patient, but
HR will increase after RN leaves room. Notified Physician.
[2024-07-14 09:34] LABS: Hematocrit 41.1 % (37.0-47.0); Hemoglobin 14.2 g/dL (12.0-16.0); Mean Corp Hgb Conc. 34.5 g/dL (33.0-37.0); Mean Corpuscular Hgb 30.1 pg (27.0-31.0); Mean Corpuscular Volume 87.1 fL (81.0-99.0); Mean Platelet Volume 10.8 fL (7.4-10.4); Platelet Count 358 10^3/uL (130-400); Red Blood Cell Count 4.72 10^6/uL (4.20-5.40); Red Cell Dist. Width 12.7 % (11.5-14.5); White Blood Cell Count 13.5 10^3/uL (4.8-10.8)
[2024-07-14] MEDS: APRESOLINE 5 MG IV (09:53)
[2024-07-14 10:22] LABS: Blood Urea Nitrogen 12 mg/dl (7-17); Calcium 8.7 mg/dl (8.4-10.2); Carbon Dioxide 23 mmol/L (22-30); Chloride 94 mmol/L (98-107); Estimated Creatinine Clearance 53 ml/min; Glucose 173 mg/dl (70-99); Potassium 3.4 mmol/L (3.5-5.1); Sodium 131 mmol/L (135-145); eGFR > 60.00
--- NOTE | 2024-07-14 10:35 | PTCARENOTE ---
07/14- Patient had been on Commode with Call Button in front of her. This RN went to check on patient to find her laying sideways on bed unresponsive but even breathing with pulse. Called Rapid Response and Notified Physician. Patient responded
to tactile stimulation, opened her eyes and said, 'what?' then began sleeping again with even full respirations. KO=246, RR=18, POX=97% on RA; LS=632/90; Bcyqunoxm=911. EKG obtained. +PulsesX4. Situated patient vertically in bed with HOB
elevated. NGT intact still draining brown drainage without issue. Patient responsive to tactile stimulation but is severely drowsy and will go right back to sleep. Notified GI who said to hold off her test that she was just called for until
stable. Will continue to monitor.
[2024-07-14 10:39] LABS: Glucose - Point of Care 158 mg/dl (70-99)
[2024-07-14 11:02] LABS: Hematocrit 42.3 % (37.0-47.0); Hemoglobin 14.4 g/dL (12.0-16.0); Mean Corpuscular Hgb 29.9 pg (27.0-31.0); Mean Corpuscular Volume 87.9 fL (81.0-99.0); Mean Platelet Volume 10.8 fL (7.4-10.4); Platelet Count 385 10^3/uL (130-400); Red Blood Cell Count 4.81 10^6/uL (4.20-5.40); Red Cell Dist. Width 12.8 % (11.5-14.5); White Blood Cell Count 13.7 10^3/uL (4.8-10.8)
--- NOTE | 2024-07-14 11:02 | W.PN.HOSP.TC ---
Addendum entered and electronically signed by Christine Ferrara MD 07/14/24 11:19:
Hypokalemia-replace
EKG noted-questionable early repolarization versus ST elevation in the anterolateral leads. Troponin pending. Patient did not have any chest pain. I have reached out to [facility] cardiology field operations technician to review this EKG.
Original Note:
Today's Communication/Plan
-
upper GI series today
Assessment / Plan
Assessment / Plan
83-year-old female presented with chest pain and back pain. Acid reflux symptoms she ran out of Prilosec 10 days ago and unable to get refilled. Patient felt nauseated. She said she has not been following precautions like small meals, head
elevation, etc. Also ran out of PPI
CT angiography of the chest-no evidence of thoracic artery aneurysm or dissection. Moderate coronary calcification. Large hiatal hernia.
CVS: S1-S2 tachy
Chest: CTA B/L
Abdomen: Soft, Bowel sounds present, NG tube
Extremities: No edema
Patient was seen twice today first time during rounds when she complained of extreme anxiety that she cannot stay in bed. She was given additional dose of Ativan. Second time seen during a rapid response when she got out of the commode and nurse
came back and saw that she had her head down on her bed. Patient was easily arousable. Unclear if she had a syncope versus she was sleeping. Patient stated that she did not sleep last night.
She denied any other complaints other than feeling anxious. No chest pain shortness of breath headaches
# Symptomatic hiatal hernia/GERD
CT shows large hiatal hernia with end of stomach and thoracic cavity
Attempts at NG tube decompression-patient did not tolerate on 07/12/24. Placed by GI and surgery with difficulty on 07/13/2024
Continue PPI supportive care
EGD 10/14/2023-tortuous esophagus with possible varices. Erythematous mucosa in the antrum biopsied large hiatal hernia with gastric rotation
Hold NSAIDs
Surgery consultation appreciated
NG tube decompression -NG tube 525 mL output
# Hypertension-on atenolol as outpatient. Propranolol is also part of the med list need to confirm.
Patient is also on amlodipine/benazepril as outpatient
Metoprolol 5 mg IV every 6 and hydralazine as needed
Pain and neck CT and stress for the NG tube could be driving blood pressure up now
As needed IV meds while n.p.o.
# Dysuria with Klebsiella UTI-cefepime ordered
# History of esophageal varices-ultrasound of the liver normal echotexture and size. No cirrhosis.
# Mild hyponatremia-follow
# Diabetes-on metformin 500 mg twice daily as outpatient.Accu-Cheks and sliding scale coverage
# Anxiety-Hold sertraline. On Xanax as needed as outpatient. Use Ativan as needed while n.p.o.
# Hyperlipidemia-Hold Lipitor while n.p.o.
# Lumbar radiculopathy/DDD
# DVT prophylaxis-Lovenox
# Full code
D/W RN
07/13/2024-spoke to patient's daughter and updated. Also discussed with her to look into atenolol and propranolol to see if the patient is on both.
Also discussed about Zithromax if she is supposed to be on that daily. She will find out that out and let me know.
07/14/24-daughter updated regarding the rapid and also about plan
Time spent more than 50 minutes -2 visits
Anticipated Discharge: > 48 hours
Subjective/Interval History
-
Date of Service: July 14, 2024
Objective Data
-
Labs:
Laboratory Results
07/14/24 07/14/24
09:22 10:45
WBC 13.5 H 13.7 H
Hgb 14.2 14.4
Hct 41.1 42.3
Plt Count 358 385
PT Pending
INR Pending
APTT Pending
Sodium 131 L Pending
Potassium 3.4 L Pending
Chloride 94 L Pending
Carbon Dioxide 23 Pending
BUN 12 Pending
Creatinine 0.6 Pending
Glucose 173 H Pending
Calcium 8.7 Pending
Total Bilirubin Pending
AST Pending
ALT Pending
Alkaline Phosphatase Pending
Vital Signs:
Vital Signs
Temp Pulse Resp BP Pulse Ox
97.8 F 112 22 165/100 95
07/14/24 08:09 07/14/24 09:53 07/14/24 08:09 07/14/24 09:53 07/14/24 08:09
I&O
07/13/24 07/14/24 07/15/24
06:59 06:59 06:59
Intake Total 1200 / 1200 1500 / 1500
Output Total 300 / 300 525 / 525
Balance 900 / 900 975 / 975
[2024-07-14 11:15] LABS: APTT 26.7 Sec (23.4-35.0); INR 0.89; PT 12.6 Sec (11.4-14.6)
--- NOTE | 2024-07-14 11:45 | PTCARENOTE ---
07/14- Troponins critically high. 12lead EKG shows some ST elevation in V1 V2. Notified Physician. Patient denies CP or SOB, though she states intermittent nausea for days, which she attributed to her GI issues. She's still drowsy and arousable
to tactile. Skin=pale/dry. +PulsesX4. UU=651; RR=14; XF=501/85; POX=96% on RA; T=97.4. Applies 2L O2. Administered noon meds as ordered. Cardiology already seeing patient- See further interventions and orders.
--- NOTE | 2024-07-14 11:55 | W.PN.UPDATE ---
Update Note
Progress Note Update
EKG with changes of ST elevation noted. EKG has changed since admission
Patient did not have any chest pain she had some nausea. But no chest pain now .
Troponin was negative on admission now elevated.
Rectal aspirin, continue IV beta-blockers
Echo when heart rate slows down
Spoke to Dr. Mckee from cardiology for an urgent consult
Updated daughter - Daughter cell- [phone].
She wants me to hold off on letting the patient know about what is going on she is going to be here .
[2024-07-14] MEDS: KCL 260 MEQ IV (11:56)
[2024-07-14] MEDS: LOPRESSOR 5 MG IV ×3 (11:57→23:01)
--- NOTE | 2024-07-14 12:11 | CON.CAR ---
Consultation
Consultation Request
Date/Time Consultation Performed: 07/14/24
Requesting Provider: Dr. Ferrara
Performing Provider: Yanique Arciniega PA-C for Dr. Estrada
Reason for Consultation: elevated troponin, abnormal EKG
Medical History
-
Chief Complaint: N/V, chest and back pain
History of Present Illness:
Patient is an 83 yo F with PMH of HTN, HLD, diabetes, hiatal hernia and GERD who presented to due to complaints of N/V, chest and back pain which had worsened over the 1-2 weeks leading up to admission. She reported decreased appetite and had run
out of her omeprazole ~10 days ago and had been unable to get it refilled. She had CT scan which showed large hiatal hernia with entire stomach in thoracic cavity. Had trop x2 on admission which were negative. EKG SR on arrival. Today while on the
commode rapid response was called as she was noted to have possible syncopal episode witnessed by nursing. Patient denies this stating she was just trying to get comfortable. Trop was checked and was elevated at 3 and EKG with concern for possible
ST elevations anterolaterally. She reports chest pressure on and off as OP however denies current chest discomfort. Reports some occasional nausea. She is NPO and has NGT in place. She is not presently on asa. Cardiology was asked for urgent
consultation. Last ischemic evaluation was stress echo in 2018 which was low risk.
PMH:
HTN
HLD
GERD/hiatal hernia
Anxiety
Diabetes
Past Medical History
Past Medical History: Other (in HPI)
Social History
Tobacco: Non-Smoker
Alcohol: None
Family History
Family History: CAD (in Father) and Cancer
Allergies / Home Medications
Allergy/AdvReac Type Severity Reaction Status Date / Time
nitrofurantoin Allergy Rash Verified 07/12/24 19:54
[From Macrodantin]
sulfamethoxazole Allergy Rash Verified 07/12/24 19:54
[From Bactrim]
trimethoprim [From Bactrim] Allergy Rash Verified 07/12/24 19:54
�Medication �Instructions �Recorded �Confirmed �Type
atenolol 25 mg tablet 25 mg PO HS Blood Pressure 04/01/17 07/12/24 History
metformin 500 mg tablet,extended 500 mg PO BID Diabetes 04/01/17 07/12/24 History
release 24 hr
omeprazole 20 mg capsule,delayed 20 mg PO DAILY Gastrointestinal 04/01/17 07/12/24 History
release Issue
atorvastatin 20 mg tablet (Lipitor) 20 mg PO HS High Cholesterol 05/29/23 07/12/24 History
celecoxib 200 mg capsule (Celebrex) 200 mg PO DAILY Pain 05/29/23 07/12/24 History
cholecalciferol (vitamin D3) 25 25 mcg PO DAILY Supplement 05/29/23 07/12/24 History
mcg (1,000 unit) capsule (Vitamin
D3)
gabapentin 100 mg capsule 200 mg PO BID Pain 05/29/23 07/12/24 History
sertraline 25 mg tablet 25 mg PO QPM Mental Health/Anxiety 05/29/23 07/12/24 History
vitamin E 268 mg (400 unit) capsule 268 mg PO DAILY Supplement 05/29/23 07/12/24 History
acetaminophen 500 mg tablet 1,000 mg PO BID Pain 07/12/24 07/12/24 History
(Tylenol Extra Strength)
alprazolam 0.25 mg tablet (Xanax) 0.25 mg PO DAILYPRN PRN panic 07/12/24 07/12/24 History
attacks
amlodipine 5 mg-benazepril 40 mg 1 cap PO DAILY Blood Pressure 07/12/24 07/12/24 History
capsule
azithromycin 250 mg tablet 250 mg PO DAILY Infection 07/12/24 07/12/24 History
propranolol 60 mg capsule,24 60 mg PO HS Blood Pressure 07/12/24 07/12/24 History
hr,extended release
Review of Systems
-
History Source: Patient
All other systems: Negative unless noted
Physical Exam
Vital Signs
Temp Pulse Resp BP Pulse Ox
97.8 F 127 18 145/92 97
07/14/24 10:35 07/14/24 11:57 07/14/24 10:35 07/14/24 11:57 07/14/24 10:35
Lab Results
07/14/24 10:45
Troponin I 3.430 ng/ml H* 07/14/24 10:45
Physical Exam
General: No Apparent Distress, Comfortable and Other (lethargic. NGT in place)
HEENT: Normocephalic, Anicteric and Moist Mucous Membranes
Respiratory: Clear and Non Labored Respirations
Cardiac: S1/S2, Regular Rhythm and Other (tachy)
GI: Soft, Non Tender and Non Distended
Musculoskeletal: No Clubbing, No Cyanosis and No Edema
Skin: Warm and Dry
Neuro: AO x 3
Impression / Plan
-
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
Assessment:
Presentation with N/V, chest and back pain
Large paraesophageal hernia
Concern for syncope on commode 07/14/24
Elevated troponin and abnormal EKG, concern for ACS
Sinus tachycardia
Hyponatremia
HTN
HLD
GERD/hiatal hernia
Anxiety
Diabetes
History of esophageal varices
Stress echo 10/2017: low risk stress test
Plan:
-Patient presented with N/V, chest and back pain worsened over the last 1-2 weeks
-imaging showed large hiatal hernia. now with NGT in place placed by surgery today. was for UGI series today however then had possible syncopal episode on commode and rapid response called
-underwent EKG which showed possible anterolateral ST elevation and trop elevated at 3 (trops negative x2 on admission). urgent cards consult placed
-trend trop to peak
-does have mod coronary calcifications noted by chest CT, no PE
-check urgent echo. if echo abnormal, will plan for urgent cath today
-repeat EKG
-300mg rectal aspirin ordered. of note she has history of esophageal varices. hgb stable at 14.4
-continue IV lopressor 5mg Q6H. noted to be on both atenolol and propranolol as OP
-d/w nursing
-d/w hospitalist
-MD discussed with interventional cardiology
Data Reviewed
-
EKG: Tracing Personally Visualized and interpreted
CT Scan: Report Reviewed by me
Labs: Labs Reviewed by me
Old Records: Reviewed
[2024-07-14] MEDS: ASPIRIN 300 MG RECTAL (12:15)
[2024-07-14 12:28] LABS: Glucose - Point of Care 190 mg/dl (70-99)
[2024-07-14 12:48] LABS: TSH 0.71 uIU/ml (0.47-4.68)
[2024-07-14 13:01] LABS: ALT (SGPT) 22 U/L (0-35); AST (SGOT) 45 U/L (14-36); Albumin 4.1 g/dl (3.5-5.0); Alkaline Phosphatase 96 U/L (38-126); Blood Urea Nitrogen 14 mg/dl (7-17); Calcium 8.7 mg/dl (8.4-10.2); Carbon Dioxide 23 mmol/L (22-30); Chloride 96 mmol/L (98-107); Estimated Creatinine Clearance 53 ml/min; Glucose 175 mg/dl (70-99); Magnesium 1.7 mg/dl (1.6-2.3); Sodium 131 mmol/L (135-145); Total Bilirubin 0.9 mg/dl (0.2-1.3); Total Protein 6.4 g/dl (6.3-8.2); eGFR > 60.00
[2024-07-14 13:08] LABS: Potassium 3.4 mmol/L (3.5-5.1)
--- NOTE | 2024-07-14 13:33 | PTCARENOTE ---
07/14- Patient woke up as she's about to be transported for her Cath- she wanted to urinate. Assisted to commode and fully monitoring. In the process of getting out of bed, she accidentally removed the NGT. Cath Nurses here to take her. Notified
GI. GI confirmed Cards takes priority at this time, and NGT can remain removed. Recorded Output for today.
[2024-07-14 13:36] LABS: Osmolality Serum 278 mOsm/kg (275-300)
[2024-07-14 14:45] LABS: ACT-LR - POC 285 Seconds (116-155)
[2024-07-14 14:59] LABS: ACT-LR - POC 353 Seconds (116-155)
[2024-07-14 15:41] LABS: ACT-LR - POC 313 Seconds (116-155)
--- NOTE | 2024-07-14 15:49 | ITS.CL.ANGIO ---
Abstract Clerk - Angioplasty
Angioplasty
Procedure Report:
CARDIAC CATHETERIZATION REPORT
Date of Procedure: 07/14/2024
Referring: Tomi Estrada M.D.
INDICATION: Non-ST elevation myocardial infarction.
PROCEDURE:
1. Left heart catheterization.
2. Coronary angiography.
3. Successful, IVUS guided PCI of the proximal and mid LAD.
ACCESS:
6 Salvadorean right radial artery.
CATHETERS:
1. 5 Salvadorean JR4.
2. 5 Salvadorean JL 3.5.
3. 6 Salvadorean EBU 3.5 guiding catheter.
HEMODYNAMIC DATA
Weight (kg): 59.0
AO (s/d/x, mmHg): 145/86/114
LV (s/x mmHg): 149/22
LEFT VENTRICULOGRAPHY: Not performed.
CORONARY ANGIOGRAPHY
Dominance: Right.
Left Main: Short, bifurcating vessel. There is no coronary artery disease.
LAD: Normal size vessel giving rise to 2 significant diagonals. The first diagonal bifurcates into an upper and lower branch. There is a 70% lesion in the proximal LAD. There is an additional hazy, 70-80% lesion in the proximal LAD
immediately proximal to the first diagonal origin. There is a tubular, 70% lesion in the mid LAD immediately after the first diagonal. The entire proximal and mid LAD is densely calcified. There is a 70% lesion in the ostium of the diagonal.
There is a 70% lesion in the proximal margin of the first diagonal, right at the bifurcation of the upper and lower branches.
Ramus: Congenitally absent.
Circumflex: Large size, nondominant vessel giving rise to 1 large marginal which supplies the entire inferolateral wall. There is no coronary artery disease.
RCA: Normal size, dominant vessel. There are minor luminal irregularities of the mid vessel.
INTERVENTION(S)
1. Successful, IVUS guided PCI of the 70% proximal LAD, 70-80% proximal LAD and tubular 70% mid LAD lesions ([employer]tronic [place] 2.25 x 26 ANGEL LUIS, postdilated with a 2.25 NC balloon throughout, a 2.5 NC balloon in the mid and proximal section and
a 3.0 x 8 NC balloon in the proximal margin), with reduction in stenosis to 0%, maintaining KATHIE-3 flow.
2. Successful PCI of the stent edge dissection in the mid LAD (Medtronic [place] 2.0 x 18 ANGEL LUIS, postdilated with a 2.25 NC balloon throughout and a 2.5 NC balloon at the overlap) with resolution of the dissection, maintaining KATHIE-3 flow.
Narrative:
The decision was made to proceed with percutaneous coronary intervention. The diagnostic catheter was removed over a wire and a 6Fr EBU 3.5 guiding catheter was advanced to the aortic root and seated in the left main coronary artery. Additional
heparin was given and a Power Turn Flex wire was advanced into the distal LAD. A BMW wire was advanced into the first diagonal for protection. The 70%, tubular mid LAD lesion, the hazy, 70-80% proximal LAD lesion in the 70% proximal LAD lesion was
predilated with a 2.0 x 12 semi-compliant balloon to 12 rene.
Angiography showed improved flow with dilation and good balloon expansion. Given the dense calcification, the decision was made to predilate more aggressively to ensure adequate balloon expansion. A 2.25 x 12 NC balloon was advanced into the mid
LAD and the entire predilated length was predilated again to 12 rene. Angiography performed after predilation showed better expansion of the vessel, but also demonstrated a linear staining of the mid LAD, consistent with coronary artery dissection
due to angioplasty.
The decision was made to perform intracoronary imaging. An IVUS catheter was advanced through the guiding catheter and into the ostium of the artery. Ring down was performed once the imaging crystal was no longer inside of the guiding catheter. The
IVUS catheter was advanced into the mid vessel, but would not proceed past the 70% tubular lesion. Intravascular ultrasound was performed in a retrograde fashion using a slow pullback. Intracoronary imaging demonstrated densely calcified arteries
with significant atherosclerotic burden. The opportunity was taken to size the vessels for PCI.
The noncompliant balloon was removed and a Medtronic [place] 2.25 x 26 drug-eluting stent was advanced. The stent was advanced into the mid LAD, but would not cover the entire dissected segment. We had difficulty advancing the stent beyond a
certain point due to downstream stenoses. With the stent in position covering the majority of the mid LAD lesion and both proximal LAD lesions, the stent was deployed at 12 atmospheres. The stent balloon was removed. A 2.25 noncompliant balloon was
advanced into the stent and the entire stent was postdilated to 12 atmospheres. The 2.25 NC balloon was withdrawn and a 2.5 x 12 NC balloon was advanced. The mid and proximal stent was dilated to 12 rene. The 2.5 NC balloon was withdrawn and a 3.0
x 8 NC balloon was advanced. The proximal margin of the stent was dilated to 14 rene. Angiography was performed in orthogonal views, confirming good stent expansion and an excellent angiographic result in the proximal and mid vessel, but persistent
staining of the mid vessel, showing that the stent had not fully tacked up the dissection plane.
The diagonal artery had KATHIE-3 flow. Given adequate protection of this vessel, the decision was made to remove the BMW wire and proceed with PCI of the mid LAD to isolate the dissection. A 6 Salvadorean guide liner was advanced for support and a new
2.0 x 12 semicompliant balloon was advanced. This balloon was able to enter the mid LAD, distal to the dissected segment. The mid LAD was predilated to 12 rene. Using the inflated balloon as an anchor, we advanced the GuideLiner into the mid LAD
stented segment. The semicompliant balloon was withdrawn and a Medtronic [place] 2.0 x 18 drug-eluting stent was advanced into the mid LAD. Meticulous care was taken while positioning the stent, ensuring that the entire dissection flap was
covered while the proximal margin of the stent overlapped with the distal margin of the previous stent. Once we were satisfied with position, the stent was deployed at 12 rene.
While the stent was deployed, the patient lapsed into torsade de pointes. Defibrillation pads were applied and the defibrillator was charged to 200 J. By the time the defibrillator was charged, the patient had spontaneously converted into sinus
tachycardia.
The stent balloon was withdrawn and a 2.25 x 12 NC balloon was advanced. Initially, we had difficulty advancing the NC balloon, only reaching the midportion of the second stent. The stent was postdilated to 14 rene. Again, we used the balloon to
anchor and advance the GuideLiner. With the GuideLiner in place, we were finally able to advance the balloon into the distal aspect of the second stent. The distal aspect of the stent was postdilated to 12 rene. The noncompliant balloon was
removed. Given our excellent GuideLiner position, the decision was made to post dilate the proximal margin and overlap of the distal stent. The 2.5 x 12 NC balloon was readvanced through the GuideLiner and into the distal stent with relative ease.
The GuideLiner was pulled back to expose the proximal margin of the distal stent as well as the stent overlap. The section was postdilated to 18 rene.
The noncompliant balloon was withdrawn. Coronary angiography was performed in orthogonal views, confirming good stent expansion with an excellent angiographic result.
The coronary wire was withdrawn and the guide was disengaged from the artery. The catheter was removed over a standard J-wire.
Closure Device: Vascular band.
Radiation (mGy): 1330.9
DAP (cm2.Gy): 77.2423
Fluoroscopy time (minutes): 25.6
Sedation time (minutes): 97
CONCLUSIONS
1. Right dominant circulation with luminal irregularities in the mid RCA and a densely calcified proximal and mid LAD with a 70% lesion in the proximal vessel, and additional, hazy, 70-80% lesion in the proximal vessel immediately proximal to the
first diagonal and a tubular, 70% mid LAD lesion immediately distal to the first diagonal, status post successful IVUS guided PCI (Medtronic [place] 2.25 x 26 ANGEL LUIS, postdilated with a 2.25 NC balloon throughout, a 2.5 NC balloon in the mid and
proximal section and a 3.0 x 8 NC balloon in the proximal margin), with reduction in stenosis to 0%, maintaining KATHIE-3 flow.
2. 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
throughout and a 2.5 NC balloon at the overlap), with resolution of the mid LAD dissection, maintaining KATHIE-3 flow.
3. VF arrest during post dilation, self terminating.
RECOMMENDATIONS:
1. Expectant management after cardiac catheterization via right radial approach.
2. Limited weight bearing on the right wrist for one week.
3. Dual antiplatelet therapy. Aspirin KS. Eptifibatide drip until NG tube has been placed and ticagrelor can be given. Maintain eptifibatide drip for 6 hours after first dose of oral antiplatelet therapy.
4. Guideline directed medical therapy as hemodynamics will tolerate.
5. Aggressive secondary prevention with high-dose, high potency statin.
6. Continuous telemetry monitoring for recurrent malignant arrhythmia.
7. Hernia management per general surgery/GI.
8. Referral for cardiac rehab.
Copy to: Frandy Roberts M.D., Tomi Estrada M.D., Gurvinder Fink, D.O.
Erlin Nicole DO, FACC, FACP
[2024-07-14] MEDS: MAGNESIUM SULFATE 102 GRAMS IV (16:24)
--- NOTE | 2024-07-14 16:33 | W.PN.GS2 ---
Today's Communication / Plan
-
`
Assessment / Plan
-
Assessment : 83F admitted with type III PEH and recurrent nausea and possible component of gastric outlet obstruction
ST elevated HI today with troponin elevation -now status post cardiac catheterization with angioplasty/ANGEL LUIS placement
NG tube inadvertently dislodged earlier
Plan: Hold on NG tube replacement particularly in light of current active therapeutic anticoagulation and difficulty with initial NG tube placement
Maintain strict n.p.o. including meds as uncertain if patient has persistent gastric outlet obstruction due to her paraesophageal hernia
Will reassess tomorrow a.m. for symptoms of persistent gastric outlet obstruction
-- If improving will need upper GI swallow evaluation to confirm adequate emptying of stomach to allow for p.o. challenge
-- If recurrent obstructive symptoms would likely consider/favor endoscopic decompression as an attempt to decompress and detorse potential gastric outlet obstruction/organoaxial volvulus; with endoscopic guided NG tube placement
Discussed with cardiology
Discussed with nursing staff at bedside
Placed phone call to discuss surgical assessment and plan with patient's daughter Jessica Jett (cell [phone])
Subjective Data
-
Date of Service: July 14, 2024
Patient seen and examined postcardiac catheterization.
Discussions with nursing earlier today via [place] text regarding events
She is currently sleeping comfortably in the cardiac IVU
Discussed with Dr. Nicole cardiac catheterization procedure
NG tube inadvertently dislodged during transport in preparation for cardiac catheterization procedure
Objective Data
-
Intake and Output
07/13/24 07/14/24 07/15/24
06:59 06:59 06:59
Intake Total 1200 / 1200 1500 / 1500
Output Total 300 / 300 525 / 525 350 / 350
Balance 900 / 900 975 / 975 -350 / -350
Intake:
Oral fluids 0 / 0
IV fluids (Total) 1200 / 1200 1500 / 1500
Output:
Gastrointestinal tube output ( 525 / 525 350 / 350
Total)
[place] Sump 525 / 525 350 / 350
Urine, Voided 300 / 300
Other:
Number of approximated MODERATE 4 4
amounts of urine
Number of approximated LARGE 2
amounts of urine
How many times incontinent 1
MODERATE amount urine
How many times incontinent 1 1
SATURATED amount urine
Vital Signs
Temp Pulse Resp BP Pulse Ox
99.0 F 121 18 144/88 93
07/14/24 16:13 07/14/24 13:19 07/14/24 16:13 07/14/24 13:19 07/14/24 16:13
Lab Results
07/14/24 10:45
07/14/24 12:01
Calcium 8.7 mg/dl (8.4-10.2) 07/14/24 12:01
Magnesium 1.7 mg/dl (1.6-2.3) 07/14/24 12:01
Total Bilirubin 0.9 mg/dl (0.2-1.3) 07/14/24 12:01
AST 45 U/L (14-36) H 07/14/24 12:01
ALT 22 U/L (0-35) 07/14/24 12:01
Alkaline Phosphatase 96 U/L (38-126) 07/14/24 12:01
Total Protein 6.4 g/dl (6.3-8.2) 07/14/24 12:01
Albumin 4.1 g/dl (3.5-5.0) 07/14/24 12:01
Physical Exam
-
NAD, sleeping -sedated post catheterization
Abdomen soft nondistended and no tenderness
[2024-07-14 16:39] LABS: Glucose - Point of Care 164 mg/dl (70-99)
[2024-07-14 17:20] LABS: Glucose - Point of Care 172 mg/dl (70-99)
--- NOTE | 2024-07-14 18:05 | CON.NEURO ---
Consultation
Order
Date of Consultation: 07/14/24
Requesting Provider:
Reason for Consult: Stroke alert
called in 17:51
Neurology Consultation Note.
HPI: This is an 83-year-old woman who presented to [facility] on 07/12/2024 with nausea and emesis.
Stroke alert was initiated due to encephalopathy. According to nursing personnel patient was noted to be lethargic after she arrived to ICU. She underwent left heart catheterization with PCI of the proximal and mid LAD. Lulú reportedly had
NSTV during the procedure. According to Dr. Nicole Ms. Wright was able to nod appropriately after catheterization has been completed around 15:15. Based on verbal report the patient received Versed 1 mg at 13:59 PM and fentanyl 25 mcg at 14:45 and
15:17 PM.
Based on surgery note from 16:30 3 PM today the patient was 'currently sleeping comfortably in the cardiac IVU'.
VS: 144/88, fingerstick�179
CT head-no acute abnormalcies.
CTA-no LVO or stenosis
PDMP:none
Labs: pending.
PMH:CAD, STEMI, HTN, HLD, DM, paraesophageal hernia, and GERD,
PSH:PTCI(07/14/2024),
SH: Non-smoker,
FH: Father�coronary artery disease
All: Nitrofurantoin, sulfamethoxazole, permethrin
ROS: Limited due to encephalopathy
General:In no acute distress.
Cardio: Tachycardic.
Neuro:
Mental Status: Lethargic, requires verbal and tactile stimulation to stay awake. Follows simple requests (shows 2 fingers). No hemineglect. Nonfluent.
Cranial Nerves: . Pupils are equally round and reactive to light. Horizontal EOMs full. Blink to threat bilaterally. Left nasolabial fold flattening. Moderate dysarthria.
Motor: Drift upper and lower extremities slowly to bed symmetrically.
Sensory: Localizes noxious stimuli bilaterally.
Coordination: No tremors myoclonic movements Limited exam due to encephalopathy.
Gait: deferred
Assessment and Plan:
I. Probably toxic encephalopathy. Not a candidate for IV TNKase due unclear time seen normal.
II. STEMI status post PCI of the proximal and mid LAD
III. CONG
-Continue Telemetry monitoring.
-Check PT/PTT
-Repeat CT head wo contrast in 24h
-DVT prophylaxis.
I personally reviewed all radiology and labs along with past medical records pertinent to current medical problems. Total time spent in patient care is 60 minutes.
Thank you for allowing us to participate in the care of this patient. We will continue to follow. Please do not hesitate to contact us with any questions or concerns.
Subjective/Objective
Subjective Data
Date of Service: July 14, 2024
Objective Data
Vital Signs
Temp Pulse Resp BP Pulse Ox
37.2 C 121 18 144/88 93
07/14/24 16:13 07/14/24 13:19 07/14/24 16:13 07/14/24 13:19 07/14/24 16:13
Lab Results
07/14/24 10:45
07/14/24 12:01
PT 12.6 Sec (11.4-14.6) 07/14/24 10:45
INR 0.89 07/14/24 10:45
APTT 26.7 Sec (23.4-35.0) 07/14/24 10:45
Sodium 131 mmol/L (135-145) L 07/14/24 12:01
Potassium 3.4 mmol/L (3.5-5.1) L 07/14/24 12:01
BUN 14 mg/dl (7-17) 07/14/24 12:01
Glucose 175 mg/dl (70-99) H 07/14/24 12:01
Calcium 8.7 mg/dl (8.4-10.2) 07/14/24 12:01
Patient Allergies
nitrofurantoin [From Macrodantin] Allergy (Verified 07/12/24 19:54)
Rash
sulfamethoxazole [From Bactrim] Allergy (Verified 07/12/24 19:54)
Rash
trimethoprim [From Bactrim] Allergy (Verified 07/12/24 19:54)
Rash
Medications
-
Active Medications
Generic Name Dose Route Start Last Admin
Trade Name Freq PRN Reason Stop Dose Admin
Aspirin 300 mg 07/15/24 08:00
Aspirin 300 Mg Rectal Suppository RECTAL 08/12/24 07:59
DAILY RAMIRO
Atorvastatin Calcium 40 mg 07/14/24 18:00
Atorvastatin (Lipitor) 40 Mg Tablet PO 08/11/24 17:59
QPM RAMIRO
Cefepime HCl 1,000 mg 07/13/24 10:00 07/14/24 09:51
Cefepime Hcl 1,000 Mg/11.3 Ml Vial IV 1,000 mg
Q8H RAMIRO Administration
Dextrose 12.5 grams 07/12/24 13:19
Dextrose 50% (0.5 Grams/Ml) 50 Ml Syringe IV 08/09/24 13:18
[id number] PRN
hypoglycemia
Protocol
Enoxaparin Sodium 40 mg 07/13/24 18:00 07/13/24 17:44
Enoxaparin Sodium 40 Mg/0.4 Ml Syringe SC 08/10/24 17:59 40 mg
QPM RAMIRO Administration
Glucagon 1 mg 07/12/24 13:19
Glucagon 1 Mg Vial IM 08/09/24 13:18
PRN PRN
hypoglycemia
Protocol
Hydralazine HCl 5 mg 07/12/24 13:19 07/14/24 09:53
Hydralazine 20 Mg/Ml Vial IV 08/09/24 13:18 5 mg
Q6HPRN PRN Administration
SBP > 180
Hydromorphone HCl 0.5 mg 07/12/24 13:19 07/12/24 22:29
Hydromorphone 0.5 Mg/0.5 Ml Syringe IV 07/26/24 13:18 0.5 mg
Q4HPRN PRN Administration
Severe Pain
Sodium Chloride 1,000 mls @ 125 mls/hr 07/13/24 15:15 07/14/24 08:03
Nss IV 1,000 mls
.Q8H RAMIRO Administration
Sodium Chloride 1,000 mls @ 0 mls/hr 07/14/24 15:45
Nss IV 07/15/24 15:43
PER PROTOCOL RAMIRO
Protocol
Per Protocol
Eptifibatide 75,000 mcg in 100 mls @ 9 mls/hr 07/14/24 15:45
Integrilin IV 07/15/24 15:44
ORDERED RATE RAMIRO
Insulin Aspart 0 units 07/12/24 13:19 07/14/24 17:31
Insulin Aspart Moderate Resistance 300 Units/3 Ml Pen.Injctr SC 08/09/24 13:18 Not Given
AC RAMIRO
Protocol
Lorazepam 0.25 mg 07/14/24 18:00
Lorazepam 2 Mg/Ml Vial IV 08/11/24 17:59
Q8HPRN PRN
anxiety
Metoprolol Tartrate 5 mg 07/14/24 09:51 07/14/24 11:57
Metoprolol 5 Mg/5 Ml Vial IV 08/10/24 17:59 5 mg
Q6 RAMIRO Administration
Ondansetron HCl 4 mg 07/12/24 13:19 07/14/24 00:49
Ondansetron 4 Mg/2 Ml Vial IV 08/09/24 13:18 4 mg
Q6HPRN PRN Administration
nausea and vomiting
Pantoprazole Sodium 40 mg 07/12/24 13:19 07/14/24 08:00
Pantoprazole Sodium 40 Mg/10 Ml Vial IV 08/09/24 13:18 40 mg
BID RAMIRO Administration
Sodium Chloride 0 flush 07/12/24 14:00
Sodium Chloride 0.9% (Flush) Syringe IV 08/09/24 13:59
PER PROTOCOL RAMIRO
Sodium Chloride 10 ml 07/12/24 14:00 07/14/24 08:00
Sodium Chloride 0.9% (Preservative Free) 10 Ml Vial IV 08/09/24 13:59 10 ml
BID RAMIRO Administration
Sodium Chloride 0.125 ml 07/14/24 18:00
Nss (Pf) 10 Ml Vial For Ativan 0.25 Mg Dose IV 08/11/24 17:59
TIDPRN PRN
IV LORAZEPAM DILUTION
Sterile Water 10 ml 07/13/24 10:00 07/14/24 09:51
Sterile Water For Injection 10 Ml Vial IV 08/10/24 09:59 10 ml
Q8H RAMIRO Administration
Home Medications
�Medication �Instructions �Recorded
atenolol 25 mg tablet 25 mg PO HS Blood Pressure 04/01/17
metformin 500 mg tablet,extended 500 mg PO BID Diabetes 04/01/17
release 24 hr
omeprazole 20 mg capsule,delayed 20 mg PO DAILY Gastrointestinal 04/01/17
release Issue
atorvastatin 20 mg tablet (Lipitor) 20 mg PO HS High Cholesterol 05/29/23
celecoxib 200 mg capsule (Celebrex) 200 mg PO DAILY Pain 05/29/23
cholecalciferol (vitamin D3) 25 25 mcg PO DAILY Supplement 05/29/23
mcg (1,000 unit) capsule (Vitamin
D3)
gabapentin 100 mg capsule 200 mg PO BID Pain 05/29/23
sertraline 25 mg tablet 25 mg PO QPM Mental Health/Anxiety 05/29/23
vitamin E 268 mg (400 unit) capsule 268 mg PO DAILY Supplement 05/29/23
acetaminophen 500 mg tablet 1,000 mg PO BID Pain 07/12/24
(Tylenol Extra Strength)
alprazolam 0.25 mg tablet (Xanax) 0.25 mg PO DAILYPRN PRN panic 07/12/24
attacks
amlodipine 5 mg-benazepril 40 mg 1 cap PO DAILY Blood Pressure 07/12/24
capsule
azithromycin 250 mg tablet 250 mg PO DAILY Infection 07/12/24
propranolol 60 mg capsule,24 60 mg PO HS Blood Pressure 07/12/24
hr,extended release
Vital Signs and Labs
-
Vital Signs and Labs:
Vital Signs
Temp Pulse Resp BP Pulse Ox
37.2 C 121 18 144/88 93
07/14/24 16:13 07/14/24 13:19 07/14/24 16:13 07/14/24 13:19 07/14/24 16:13
Lab Results
07/14/24 10:45
07/14/24 12:01
PT 12.6 Sec (11.4-14.6) 07/14/24 10:45
INR 0.89 07/14/24 10:45
APTT 26.7 Sec (23.4-35.0) 07/14/24 10:45
Sodium 131 mmol/L (135-145) L 07/14/24 12:01
Potassium 3.4 mmol/L (3.5-5.1) L 07/14/24 12:01
BUN 14 mg/dl (7-17) 07/14/24 12:01
Glucose 175 mg/dl (70-99) H 07/14/24 12:01
Calcium 8.7 mg/dl (8.4-10.2) 07/14/24 12:01
Medications
-
Medications:
Generic Name Dose Route Start Last Admin
Trade Name Freq PRN Reason Stop Dose Admin
Aspirin 300 mg 07/15/24 08:00
Aspirin 300 Mg Rectal Suppository RECTAL 08/12/24 07:59
DAILY RAMIRO
Atorvastatin Calcium 40 mg 07/14/24 18:00 07/14/24 18:26
Atorvastatin (Lipitor) 40 Mg Tablet PO 08/11/24 17:59 Not Given
QPM RAMIRO
Cefepime HCl 1,000 mg 07/13/24 10:00 07/14/24 09:51
Cefepime Hcl 1,000 Mg/11.3 Ml Vial IV 1,000 mg
Q8H RAMIRO Administration
Dextrose 12.5 grams 07/12/24 13:19
Dextrose 50% (0.5 Grams/Ml) 50 Ml Syringe IV 08/09/24 13:18
[id number] PRN
hypoglycemia
Protocol
Enoxaparin Sodium 40 mg 07/13/24 18:00 07/13/24 17:44
Enoxaparin Sodium 40 Mg/0.4 Ml Syringe SC 08/10/24 17:59 40 mg
QPM RAMIRO Administration
Glucagon 1 mg 07/12/24 13:19
Glucagon 1 Mg Vial IM 08/09/24 13:18
PRN PRN
hypoglycemia
Protocol
Hydralazine HCl 5 mg 07/12/24 13:19 07/14/24 09:53
Hydralazine 20 Mg/Ml Vial IV 08/09/24 13:18 5 mg
Q6HPRN PRN Administration
SBP > 180
Hydromorphone HCl 0.5 mg 07/12/24 13:19 07/12/24 22:29
Hydromorphone 0.5 Mg/0.5 Ml Syringe IV 07/26/24 13:18 0.5 mg
Q4HPRN PRN Administration
Severe Pain
Sodium Chloride 1,000 mls @ 125 mls/hr 07/13/24 15:15 07/14/24 08:03
Nss IV 1,000 mls
.Q8H RAMIRO Administration
Sodium Chloride 1,000 mls @ 0 mls/hr 07/14/24 15:45
Nss IV 07/15/24 15:43
PER PROTOCOL RAMIRO
Protocol
Per Protocol
Eptifibatide 75,000 mcg in 100 mls @ 9 mls/hr 07/14/24 15:45
Integrilin IV 07/15/24 15:44
ORDERED RATE RAMIRO
Insulin Aspart 0 units 07/12/24 13:19 07/14/24 17:31
Insulin Aspart Moderate Resistance 300 Units/3 Ml Pen.Injctr SC 08/09/24 13:18 Not Given
AC RAMIRO
Protocol
Lorazepam 0.25 mg 07/14/24 18:00
Lorazepam 2 Mg/Ml Vial IV 08/11/24 17:59
Q8HPRN PRN
anxiety
Metoprolol Tartrate 5 mg 07/14/24 09:51 07/14/24 11:57
Metoprolol 5 Mg/5 Ml Vial IV 08/10/24 17:59 5 mg
Q6 RAMIRO Administration
Ondansetron HCl 4 mg 07/12/24 13:19 07/14/24 00:49
Ondansetron 4 Mg/2 Ml Vial IV 08/09/24 13:18 4 mg
Q6HPRN PRN Administration
nausea and vomiting
Pantoprazole Sodium 40 mg 07/12/24 13:19 07/14/24 08:00
Pantoprazole Sodium 40 Mg/10 Ml Vial IV 08/09/24 13:18 40 mg
BID RAMIRO Administration
Sodium Chloride 0 flush 07/12/24 14:00
Sodium Chloride 0.9% (Flush) Syringe IV 08/09/24 13:59
PER PROTOCOL RAMIRO
Sodium Chloride 10 ml 07/12/24 14:00 07/14/24 08:00
Sodium Chloride 0.9% (Preservative Free) 10 Ml Vial IV 08/09/24 13:59 10 ml
BID RAMIRO Administration
Sodium Chloride 0.125 ml 07/14/24 18:00
Nss (Pf) 10 Ml Vial For Ativan 0.25 Mg Dose IV 08/11/24 17:59
TIDPRN PRN
IV LORAZEPAM DILUTION
Sterile Water 10 ml 07/13/24 10:00 07/14/24 09:51
Sterile Water For Injection 10 Ml Vial IV 08/10/24 09:59 10 ml
Q8H RAMIRO Administration
Home Medications
-
Home Medications
atenolol 25 mg tablet 25 mg PO HS Blood Pressure 04/01/17
metformin 500 mg tablet,extended release 24 hr 500 mg PO BID Diabetes 04/01/17
omeprazole 20 mg capsule,delayed release 20 mg PO DAILY Gastrointestinal Issue 04/01/17
atorvastatin 20 mg tablet (Lipitor) 20 mg PO HS High Cholesterol 05/29/23
celecoxib 200 mg capsule (Celebrex) 200 mg PO DAILY Pain 05/29/23
cholecalciferol (vitamin D3) 25 mcg (1,000 unit) capsule (Vitamin D3) 25 mcg PO DAILY Supplement 05/29/23
gabapentin 100 mg capsule 200 mg PO BID Pain 05/29/23
sertraline 25 mg tablet 25 mg PO QPM Mental Health/Anxiety 05/29/23
vitamin E 268 mg (400 unit) capsule 268 mg PO DAILY Supplement 05/29/23
acetaminophen 500 mg tablet (Tylenol Extra Strength) 1,000 mg PO BID Pain 07/12/24
alprazolam 0.25 mg tablet (Xanax) 0.25 mg PO DAILYPRN PRN panic attacks 07/12/24
amlodipine 5 mg-benazepril 40 mg capsule 1 cap PO DAILY Blood Pressure 07/12/24
azithromycin 250 mg tablet 250 mg PO DAILY Infection 07/12/24
propranolol 60 mg capsule,24 hr,extended release 60 mg PO HS Blood Pressure 07/12/24
[2024-07-14] MEDS: LIPITOR PO (18:26)
--- NOTE | 2024-07-14 18:37 | W.PN.UPDATE ---
Update Note
Progress Note Update
Addendum post catheterization note: Nursing called to report increased agitation / restlessness and dysarthria. Patient was seen by myself and Dr. Nicole.
Neuro: She moved all extremities with normal motor strength in upper extremities. She follows commands appropriately. Speech was somewhat garbled and dysarthric at times while at other times seemed appropriate
At this point the decision was made to activate a stroke alert. Stroke alert called with response. Patient was seen by Neurology and is now down in CT scan.
--- NOTE | 2024-07-14 18:53 | W.PN.UPDATE ---
Update Note
Progress Note Update
Evaluated the patient earlier when she was in CT scan during stroke alert.
Neurology had already seen the patient.
Per discussion with Dr. Aiken
Patient had a cath angioplasty and a proximal LAD stent placed. There was distal dissection suspected and a second overlapping stent was placed distally in the LAD.
Patient briefly went into atrial fibrillation
And also she had a V-fib arrest during the procedure self-limiting (unclear to me if she needed a shock or not.)
Dr. Nicole spoke to patient's daughter after the cath and updated. Dr. Aiken updated daughter regarding stroke alert and that neurology was evaluating the patient.
On patient patient's speech is not slurry at this point
She was laying down flat-there was only questionable left facial droop not consistent
She had 5 x 5 strength left lower extremity and left upper extremity
Right wrist-status post cath with Angio-Seal
Right lower extremity able to be moved with no difficulty
Head CT-no acute changes
CTA head-No nome of Mohan aneurysm or stenosis. No cerebral artery plaques, stenosis, thrombosis or occlusion.
Cervical carotid and vertebral arteries are patentRight vertebral artery occluded at V3 segment. Left dominant. 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
patent bilateral DRIVER LICENSE REVIEWING OFFICER.
Patient had received sedatives in the [employer]
Unclear neuro event versus encephalopathy secondary to this-resolving
No TNK per discussion with neurology
Monitor on telemetry
Consider anticoagulation when safe to do so
Per discussion with neurology okay to continue Integrilin, antiplatelets
Eventually dual antiplatelets when patient can take p.o.
Statin when she can take p.o.
Neurochecks ,allow permissive hypertension.
Maintain NG tube to suction , upper GI series probably tomorrow.
Repeat EKG reviewed by me
CT head report as well as images reviewed
Discussed with ICU nurse-rapid response team
Discussed with CT scan staff
Discussed with IVU RN
Discussed with cardiology and neurology
I did not call patient's daughter since she was already updated by Dr. Nicole and Dr. Aiken
Total critical care time more than 33 minutes
[2024-07-14] MEDS: KCL 160 MEQ IV (19:13)
[2024-07-14] MEDS: LOVENOX SC (19:14)
--- NOTE | 2024-07-14 19:41 | PTCARENOTE ---
Rec'd pt from grass farm laborer. On assessment, pt lethargic, restless, pulling at wires/lines. Pt w/ garbled speech, not following commands, L facial droop, expressive aphasia. Colette aware and at bedside and instructed to call RR/stroke alert.
See Rapid Response note.
--- NOTE | 2024-07-14 19:48 | RR ---
A Rapid Response was called on this patient, please see Rapid Response form.
[2024-07-14 20:06] LABS: INR 1.03
[2024-07-14 20:07] LABS: APTT 59.3 Sec (23.4-35.0)
--- NOTE | 2024-07-14 21:47 | PTCARENOTE ---
Pt. received from CT scan at change of shift. Pt. AOx2, to self and place. Pt. tells RN she is 53 years old, and does not know her last name. Tele reading sinus tach/NSR with PVCs. Continuous BP q2 hrs. NIH and neuro checks in place per protocol.
Bed alarm placed on patient. This RN attempting to remove air from TR band per protocol. One cc taken out at 2130, continuously watching for bleeding. Pt. strict NPO. Fall precautions in place. RN attempted to get med sitter for patient, med sitter
unavailable at this time. Call juarez within reach. Continuing to monitor at this time.
[2024-07-14 21:57] LABS: Glucose - Point of Care 161 mg/dl (70-99)
[2024-07-15] VITALS (44 sets, daily range): BP systolic 83–180; BP diastolic 52–141; BMI 27.1
[2024-07-15] MEDS: MAXIPIME 1000 MG IV ×3 (01:59→18:29)
[2024-07-15] MEDS: STERILE WATER FOR INJECTION 10 ML IV ×3 (01:59→18:29)
--- NOTE | 2024-07-15 02:38 | PTCARENOTE ---
TR band off at 2am. Manual pressure held for 25 minutes with CLEOPATRA Yin in room. After manual pressure, gauze and tegaderm place over right radial wrist. Dressing c/d/i at this time. Continuing to monitor.
[2024-07-15] MEDS: LOPRESSOR 5 MG IV (05:42)
[2024-07-15] MEDS: ZOFRAN 4 MG IV ×2 (05:43→12:39)
--- NOTE | 2024-07-15 05:44 | PTCARENOTE ---
Pt. change in mental status. Pt. AOx3 to self, place, and time. No complaints of pain at this time. Pt. appearing anxious. Call juarez within reach. Continuing to monitor at this time.
[2024-07-15 06:27] LABS: Hematocrit 38.6 % (37.0-47.0); Hemoglobin 12.8 g/dL (12.0-16.0); Mean Corp Hgb Conc. 33.2 g/dL (33.0-37.0); Mean Corpuscular Hgb 29.8 pg (27.0-31.0); Mean Platelet Volume 11.1 fL (7.4-10.4); Platelet Count 362 10^3/uL (130-400); Red Blood Cell Count 4.29 10^6/uL (4.20-5.40); White Blood Cell Count 16.1 10^3/uL (4.8-10.8)
[2024-07-15 06:52] LABS: Blood Urea Nitrogen 16 mg/dl (7-17); Calcium 8.4 mg/dl (8.4-10.2); Carbon Dioxide 21 mmol/L (22-30); Chloride 100 mmol/L (98-107); Estimated Creatinine Clearance 53 ml/min; Glucose 154 mg/dl (70-99); HDL Cholesterol 52 mg/dl; LDL Cholesterol, Calculated 96 mg/dl; Potassium 3.5 mmol/L (3.5-5.1); Sodium 133 mmol/L (135-145); Total Cholesterol 178 mg/dl (50-199); Triglyceride 153 mg/dl (10-149); Very Low Density Lipoprotein 30 mg/dl (0-30); eGFR > 60.00
--- NOTE | 2024-07-15 07:04 | CON.GI ---
Addendum entered and electronically signed by Jose Benton MD 07/15/24 10:19:
I saw and examined the patient.
The NURSES' ASSOCIATION COUNSELOR or PA's note was reviewed and I agree with the note.
Comment: 83yo female presents with chest pain, n/v and CT chest showed large HH. NGT was placed with difficulty, draining 500 ccs after placement, then fell out. Pt had syncope yesterday, taken urgently to cath for LAD stent, had VF arrest during
procedure. Also had stroke alert overnight, possibly due to sedation effects. This am feels better. Has some nausea, but asking for water. Had EGD in September showing large HH with gastric rotation.
REC:
Discussed with Surgery, Cardiology, nursing.
Keep NPO for now
I asked Surgery to eval as well this am and we will decide on either speech eval/trial of clears vs EGD/decompression/NGT placement.
Currently on Integrilin and rectal ASA with plan to transition to IV cangrelor, so NGT not currently needed solely for enteral access
Original Note:
Consultation
-
Date/Time Consultation Requested: 07/15/24 0700
Date/Time Consultation Performed: 07/15/24 0830
Requesting Provider: zaire Florian MD
Performing Provider: JOJO Elias, Jose Benton MD
Reason for Consultation: nausea/vomiting -- eval for NGT accesss
Medical History
Chief Complaint / HPI
Chief Complaint: nausea
History of Present Illness:
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 On admission initial troponin was normal with stable EKG. CTA
completed to rule out dissection and PE but noted with large HH . NGT was attempted with some resistance and limited advancement and then placed at 35 cm for decompression with tip at level EG junction account for hernia. NGT drained 525 on 07/14
then 350 on 07/15 per record then came out. On 07/14 Pt was noted with syncope with marked rise in troponin with abnormal EKG concern for NSTEMI. She was taken to cardiac catheterization technologist with LAD disease with proximal/mid LAD stenting complicated by
dissection. She had brief episode of afib and V fib arrest during procedure. Post procedure she was noted with agitation, restlessness and dysarthria with stoke alert called and consult to neurology with stable CT and possible sedation related
event and integrin continued. Now asked to see for possible endoscopic NGT placement. Pt currently states she is feeling better. She complaints of nausea but much improved from 2 days prior.
At this time she admits to feeling better. She admits to hx GERD with daily PPI use. She denies dysphagia, odynophagia, currently vomiting and noted mild nausea improved from admission. She did have some diarrhea prior to admission that is now
improved. No rectal bleeding. Hx EGD 09/[address] Mixon - Tortuous esophagus with possible varices, erythema in antrum and large HH with gastric rotation with normal duodenum. Last colonoscopy [address] Mixon with internal hemorrhoids,
diverticulosis.
Past Medical History
Past Medical History: GERD, HTN, NIDDM and Other (type II PEH, DILI from macrodantin, IBS-C)
Past Surgical History: Orthopedic (left knee surgery, rotator cuff surgery, lumbar surgery-MILD procedure ), Tonsilectomy and Other (breast surgery )
Social History
Tobacco: Non-Smoker
Alcohol: None
Drug: None
Living: Alone
Employment: Retired
Family History
Family History: Other (no family hx GI )
Allergies / Home Medications
Allergy/AdvReac Type Severity Reaction Status Date / Time
nitrofurantoin Allergy Rash Verified 07/12/24 19:54
[From Macrodantin]
sulfamethoxazole Allergy Rash Verified 07/12/24 19:54
[From Bactrim]
trimethoprim [From Bactrim] Allergy Rash Verified 07/12/24 19:54
�Medication �Instructions �Recorded
atenolol 25 mg tablet 25 mg PO HS Blood Pressure 04/01/17
metformin 500 mg tablet,extended 500 mg PO BID Diabetes 04/01/17
release 24 hr
omeprazole 20 mg capsule,delayed 20 mg PO DAILY Gastrointestinal 04/01/17
release Issue
atorvastatin 20 mg tablet (Lipitor) 20 mg PO HS High Cholesterol 05/29/23
celecoxib 200 mg capsule (Celebrex) 200 mg PO DAILY Pain 05/29/23
cholecalciferol (vitamin D3) 25 25 mcg PO DAILY Supplement 05/29/23
mcg (1,000 unit) capsule (Vitamin
D3)
gabapentin 100 mg capsule 200 mg PO BID Pain 05/29/23
sertraline 25 mg tablet 25 mg PO QPM Mental Health/Anxiety 05/29/23
vitamin E 268 mg (400 unit) capsule 268 mg PO DAILY Supplement 05/29/23
acetaminophen 500 mg tablet 1,000 mg PO BID Pain 07/12/24
(Tylenol Extra Strength)
alprazolam 0.25 mg tablet (Xanax) 0.25 mg PO DAILYPRN PRN panic 07/12/24
attacks
amlodipine 5 mg-benazepril 40 mg 1 cap PO DAILY Blood Pressure 07/12/24
capsule
azithromycin 250 mg tablet 250 mg PO DAILY Infection 07/12/24
propranolol 60 mg capsule,24 60 mg PO HS Blood Pressure 07/12/24
hr,extended release
Review of Systems
-
History Source: Patient
Constitutional: Reports No Symptoms and Other (c/o feeling thirsty )
EENT: Reports No Symptoms
Respiratory: Reports No Symptoms
Abdomen/GI: Reports Nausea and Diarrhea (prior to admission )
: Reports No Symptoms
Musculoskeletal: Reports No Symptoms
Skin: Reports No Symptoms
Neurological: Reports Weakness and Other (some forgetfulness )
Endocrine: Reports No Symptoms
Hematologic/Lymphatic: Reports No Symptoms
Vital Signs
Temp Pulse Resp BP Pulse Ox
97.7 F 92 19 170/85 96
07/15/24 05:14 07/15/24 05:45 07/15/24 05:14 07/15/24 05:42 07/15/24 05:14
Physical Exam
Exam
General: Well Developed, Well Nourished and No Apparent Distress
HEENT: Normocephalic and Anicteric
Respiratory: Clear
Cardiac: Regular Rhythm
GI: Soft, Non Tender and Non Distended
Musculoskeletal: No Clubbing and No Cyanosis
Skin: Warm and Dry
Neuro: Awake, Alert and AO x 3
Psych: Other (mild anxiety -- improved from 2 days prior )
Results
WBC 16.1 10^3/uL (4.8-10.8) H 07/15/24 05:24
Hgb 12.8 g/dL (12.0-16.0) 07/15/24 05:24
Hct 38.6 % (37.0-47.0) 07/15/24 05:24
MCV 90.0 fL (81.0-99.0) 07/15/24 05:24
Plt Count 362 10^3/uL (130-400) 07/15/24 05:24
Absolute Neuts (auto) 10.2 10^3/uL (1.4-6.5) H 07/12/24 01:34
PT 14.0 Sec (11.4-14.6) 07/14/24 19:48
INR 1.03 07/14/24 19:48
APTT 59.3 Sec (23.4-35.0) H 07/14/24 19:48
Sodium 133 mmol/L (135-145) L 07/15/24 05:24
Potassium 3.5 mmol/L (3.5-5.1) 07/15/24 05:24
Chloride 100 mmol/L (98-107) 07/15/24 05:24
Carbon Dioxide 21 mmol/L (22-30) L 07/15/24 05:24
BUN 16 mg/dl (7-17) 07/15/24 05:24
Creatinine 0.6 mg/dL (0.6-1.0) 07/15/24 05:24
Calcium 8.4 mg/dl (8.4-10.2) 07/15/24 05:24
Total Bilirubin 0.9 mg/dl (0.2-1.3) 07/14/24 12:01
AST 45 U/L (14-36) H 07/14/24 12:01
ALT 22 U/L (0-35) 07/14/24 12:01
Alkaline Phosphatase 96 U/L (38-126) 07/14/24 12:01
Lipase 119 U/L (23-300) 07/12/24 01:34
Diagnostic Image Results:
07/14/24- CT head stroke alert
No acute intracranial abnormality noted.
07/13/24- CXR
There is hiatal hernia better demonstrated on the 05/29/2023 examination
The tip of the nasogastric tube is not below the diaphragm but is at approximately the level of the esophagogastric junction accounting for the hiatal hernia. The nasogastric tube could be advanced for better positioning
07/12/24 CT angio
1. No evidence of thoracic aortic aneurysm or dissection. No pulmonary embolism.
2. Moderate coronary arterial calcification. Please correlate with symptoms of and risk factors for coronary artery disease, with further workup as clinically appropriate.
3. Large hiatal hernia, without evidence of incarceration
Prior GI Procedures:
EGD: 09/[address] Mixon - Tortuous esophagus with possible varices, erythema in antrum and large HH with gastric rotation with normal duodenum.
Colonoscopy: [address] Mixon with internal hemorrhoids, diverticulosis.
Assessment / Plan
-
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 On admission initial troponin was normal with stable EKG. CTA
completed to rule out dissection and PE but noted with large HH . NGT was attempted with some resistance and limited advancement and then placed at 35 cm for decompression with tip at level EG junction account for hernia. NGT drained 525 on 07/14
then 350 on 07/15 per record then came out. On 07/14 Pt was noted with syncope with marked rise in troponin with abnormal EKG concern for NSTEMI. She was taken to cardiac catheterization technologist with LAD disease with proximal/mid LAD stenting complicated by
dissection. She had brief episode of afib and V fib arrest during procedure. Post procedure she was noted with agitation, restlessness and dysarthria with stoke alert called and consult to neurology with stable CT and possible sedation related
event and integrin continued. Now asked to see for possible endoscopic NGT placement. Pt currently states she is feeling better. She complaints of nausea but much improved from 2 days prior.
-nausea with noted large PEH type III
-07/14 NSTEMI LAD disease with proximal/mid LAD stenting complicated by dissection. She had brief episode of afib and V fib arrest during procedure
-change in mental status s/p stroke alert 07/14 post cath
-leukocytosis
-hyponatremia
other med problems:
-NIDDM
-HTN
-prior DILI from Macrodantin
--IBS-C
-GERD
PLAN:
Pt currently with NGT out and concern for possible PEH with partial obstruction. No vomiting overnight NGT drainage 525 on 07/14 and 350 on 07/15 recorded in chart and pt feeling much better tolerating sips liquid with mouth swabs
multiple continued discussion with cardiology as need for assess for medication post-cath, surgery with concern for large HH with gastric outlet component -- Dr. Benton continues to review with surgery for need for NGT placement endoscopically
cont NPO for now
hold speech eval for now pending further discussion
cont Integrilin with plan to switch to Cangrelor per cardiology
support given as pt frustrated with continued medical issues
cont PPI BID
updated nursing staff
-
-
Thank you for consultation and allowing me to participate in the patient's care. Please call the automotive service consultant GI physician during the after hours with any questions or concerns.
[2024-07-15 07:18] LABS: Glucose - Point of Care 157 mg/dl (70-99)
[2024-07-15] MEDS: INTEGRILIN 100 IV (08:55)
[2024-07-15] MEDS: NSS (PRESERVATIVE FREE) 10 ML IV (09:14)
[2024-07-15] MEDS: ASPIRIN 300 MG RECTAL (09:14)
[2024-07-15] MEDS: PROTONIX IV 40 MG IV (09:14)
--- NOTE | 2024-07-15 09:17 | W.PN.CARDCBS ---
Addendum entered and electronically signed by Holden Parks MD 07/15/24 16:45:
I saw and examined the patient on morning rounds.
The Customer Greeter's note was reviewed and I agree with the note.
Comment: 83-year-old woman presenting with chest discomfort found to have NSTEMI and underwent left heart catheterization on 07/14/2024 where she was found to have proximal LAD stenosis treated with drug-eluting stent. Unfortunately her hospital
course has been complicated by inability to tolerate p.o. medications due to nausea/vomiting. In addition, had an episode last evening of altered mental status for which stroke alert was called.
This at the time of my evaluation patient was resting comfortably and was chest pain-free
Reporting to me that she was depressed and upset that she was unable to eat and drink
Telemetry reviewed showing sinus rhythm and episodes of SVT which I suspect are rate
Physical exam was unremarkable, no evidence of acute heart failure or mechanical complication of NE on physical exam
In regards to her antiplatelets, continues to receive rectal aspirin
Plan was to continue Integrilin and transition to Cangrelor when available per interventional cardiology
Ordered for IV Lopressor, would transition to p.o. dosing when able
Start statin when able
Eventual JMAILAH/ARB given mildly reduced LVEF on echo
Ongoing w/up by GI, appreciate their input
Original Note:
Today's Communication / Plan
-
Patient remains NPO
Restart Integrilin
Continue rectal aspirin
Initiate cangrelor once obtained with discontinuation of Integrilin after
Increase IV Lopressor to 7.5 mg every 6
Replete potassium
Continue to trend troponin
Impression / Plan
-
Primary Occ Therapy Asst: none
Assessment:
Presentation 07/12/2024 with N/V, chest and back pain
Large paraesophageal hernia
Concern for syncope on commode 07/14/24
NSTEMI 07/14/2024
s/p LAD ANGEL LUIS x 2 overlapping stents (prox [employer] Олег [place] 2.25 x 26 ANGEL LUIS, mid LAD [employer]onic Олег frontier 2.0 x 18 ANGEL LUIS)
Sinus tachycardia
Hyponatremia
HTN
HLD
GERD/hiatal hernia
Anxiety
Diabetes
History of esophageal varices
Cardiac catheterization 07/14/2024: LM: Patent. LAD proximal 70% with additional proximal 70 to 80% hazy stenosis/thrombosis, mid 70%, (status post emergent prox Medtronic [place] 2.25 x 26 ANGEL LUIS, mid LAD [employer] Олег frontier 2.0 x 18 ANGEL LUIS) .
Diagonal 70% ostial and 70% proximal. Circumflex: Patent. RCA: LI
Echo 07/14/2024: EF 45% with mild concentric LVH. Moderately reduced LV systolic function with anteroseptal and apical hypokinesis. Moderately enlarged LA. Mild MR, mild AAS with peak/mean gradient 12/8 mmHg. Mild to moderate TR, moderate
pulmonary hypertension with PAP 47 mmHg
Stress echo 10/2017: low risk stress test
Plan:
-Patient presented 07/12/2024 with N/V, chest and back pain worsened over the last 1-2 weeks
-imaging showed large hiatal hernia. NGT in placed 07/13 by GI. was for UGI series 07/14 however then had syncopal episode on commode and rapid response called. Patient no longer has NG tube 07/14/2024. Pt remains NPO as of 07/15 in AM.
-After syncopal event 07/14/2024 patient found to have abnormal EKG which showed possible anterolateral ST elevation and trop elevated at 3 (trops negative x2 on admission). Prompting patient to undergo cardiac catheterization which demonstrated
multiple LAD lesions with concern for thrombosis for which patient underwent proximal LAD ANGEL LUIS. Procedure was complicated by distal dissection requiring additional ANGEL LUIS to mid LAD. Postprocedural angiography showed KATHIE-3 flow through LAD.
-Patient did have self limiting V-fib during procedure with ROSC. Continue to monitor closely on telemetry.
-Per review of telemetry patient continues to have runs of atrial tachycardia however brief period no additional ventricular arrhythmias.
-Given intermittent episodes of tachycardia and ongoing hypertension would increase IV Lopressor to 7.5 mg every 6
-Replete potassium 3.5, keep potassium greater than 4, magnesium greater than 2
-Troponin negative on admission, post rapid response 3.4 and upward trending to 6.2. Trend to peak
-Patient continues to be NPO. Ongoing discussion with GI and surgery regarding endoscopy with placement of NG tube versus advancing diet.
-Continue with rectal aspirin.
-Patient needs dual antiplatelet therapy. However she is n.p.o. need to continue IV Integrilin. Cangrelor which is IV form of an antiplatelet that has very rapid onset and rapid return of platelet function after cessation has been ordered. Once
this has been started we will initiate IV cangrelor with rectal aspirin. Integrilin can be discontinued at that time.
-Once able to tolerate orals transition to oral dual antiplatelet therapy, beta-ron, JAMILAH inhibitor/ARB and statin.
Ongoing discussion with GI and surgery regarding again placing NG tube/EGD w/ decompression prox stomach versus advancing diet and awaiting decision. Patient notes ongoing mild nausea.
Ongoing multidisciplinary discussion with data management associate, GI, surgery, nursing, patient and hospitalist.
Total time 53 minutes with coordination of care with specialists
Progress Note - Occ Therapy Asst
Subjective
Date of Service: July 15, 2024
Patient seen and examined. Patient lying in bed. Patient complaining of being thirsty and wanting something to drink. She notes occasional nausea but denies chest or back pain.
Patient seen with GI in room as well as interventional cardiology.
Objective
Labs:
07/15/24 05:24
07/15/24 05:24
Labs
Hgb 12.8 g/dL (12.0-16.0) 07/15/24 05:24
Hct 38.6 % (37.0-47.0) 07/15/24 05:24
Plt Count 362 10^3/uL (130-400) 07/15/24 05:24
PT 14.0 Sec (11.4-14.6) 07/14/24 19:48
INR 1.03 07/14/24 19:48
APTT 59.3 Sec (23.4-35.0) H 07/14/24 19:48
Sodium 133 mmol/L (135-145) L 07/15/24 05:24
Potassium 3.5 mmol/L (3.5-5.1) 07/15/24 05:24
BUN 16 mg/dl (7-17) 07/15/24 05:24
Creatinine 0.6 mg/dL (0.6-1.0) 07/15/24 05:24
Glucose 154 mg/dl (70-99) H 07/15/24 05:24
Troponins
07/14/24 07/14/24 07/14/24
10:45 12:01 19:48
Troponin I 3.430 H* 3.820 H* 6.200 H* D
Vital Signs and I&O:
Vital Signs
Temp Pulse Resp BP Pulse Ox
98.4 F 92 20 170/85 96
07/15/24 07:11 07/15/24 05:45 07/15/24 07:11 07/15/24 05:42 07/15/24 07:11
Vital Signs
Temp Pulse Resp BP Pulse Ox
98.4 F 92 20 170/85 96
07/15/24 07:11 07/15/24 05:45 07/15/24 07:11 07/15/24 05:42 07/15/24 07:11
Intake & Output
07/13/24 07/14/24 07/15/24 07/16/24
06:59 06:59 06:59 06:59
Intake Total 1200 / 1200 1500 / 1500
Output Total 300 / 300 525 / 525 550 / 550
Balance 900 / 900 975 / 975 -550 / -550
Physical Exam
Physical Exam
GEN: No distress, awake, Ox3, lying in bed
HEENT: supple, anicteric, mmm
LUNGS: Mildly decreased at right base otherwise CTA, no wheezes/rales
CV: Reg, S1/S2, 1/6 syst murmur
ABD: soft, absent bowel sounds, nontender
EXT: No edema, clubbing or cyanosis; right radial access site clean dry intact without significant hematoma
NEURO: Gross non-focal
SKIN: Moderate sized area of ecchymosis noted over mid sternum into both breast, bruising noted on right shoulder
[2024-07-15] MEDS: NSS 1000 IV ×2 (09:24→19:13)
[2024-07-15] MEDS: NOVOLOG FLEXPEN-MODERATE RESISTANCE SC ×2 (09:42→18:07)
[2024-07-15 09:53] LABS: Osmolality Urine 758 mOsm/kg (300-900)
[2024-07-15 10:01] LABS: Urine Sodium 120 mmol/L (30-90)
--- NOTE | 2024-07-15 10:44 | W.PN.GS2 ---
Addendum entered and electronically signed by Heath Kolb MD 07/15/24 11:33:
Patient seen and examined. Agree with assessment plan as documented below.
Patient currently sleeping comfortably. Per nursing patient was nauseous just prior to falling asleep. No reports of worsening chest pain.
Gen: NAD
Abd: soft, NT/ND, non-peritoneal
Patient is a 83 yo F p/w type III PEH and recurrent nausea and possible component of GOO
ST elevated NE with troponin elevation - now s/p cardiac catheterization with angioplasty/ANGEL LUIS placement on IV Integrilin
NG tube inadvertently dislodged yesterday
Unlikely that her primary issue was cardiopulmonary in nature given negative CT chest, negative troponin, and normal EKG on admission. More likely that her PEH was the initial source of her symptoms. Options for management at this time include the
followin) trial liquid diet and monitor for tolerance, 2) UGI to better assess PEH objectively confirm or rule out GOO, and 3) NGT placement for gastric decompression allowing for symptomatic improvement and potentially a more safer UGI, given
her prior issues with bedside placement as well as current antiplatelet medications this is better performed via EGD which will also help to more efficiently decompress her stomach. Pros and cons of the above has been considered and discussed with
both nursing and GI. Given her persistent and recurrent issues with nausea, as well as increased risk for complications with new NE would recommend endoscopic decompression and NGT placement. No immediate plans for surgery at this time given
increased risk for general anesthesia complex procedure as relates to her cardiopulmonary and bleeding risks.
-- NPO
-- GI consult for EGD decompression and NGT placement
-- Following period of decompression, will assess readiness for UGI to assess for obstruction which will help to determine timing and necessity of surgery during this admission
-- Until UGI all med should be IV, following either UGI confirming lack of obstruction or surgical intervention PO meds will be OK at that time
-- PPI
Original Note:
Today's Communication / Plan
-
NPO
Possible EGD as per GI
Assessment / Plan
-
Assessment : 83F admitted with type III PEH and recurrent nausea and possible component of gastric outlet obstruction
ST elevated NE with troponin elevation -now status post cardiac catheterization with angioplasty/ANGEL LUIS placement on IV Integrilin
NG tube inadvertently dislodged yesterday
Plan:
High risk for bleeding with bedside NG tube replacement particularly in light of current active anticoagulation therapy and difficulty with initial NG tube placement as well as h/o esophageal varices
Maintain strict n.p.o. including meds as uncertain if patient has persistent gastric outlet obstruction due to her paraesophageal hernia
Given ongoing nausea, would favor endoscopic decompression as an attempt to decompress and detorse potential gastric outlet obstruction/organoaxial volvulus; with endoscopic guided NG tube placement (defer to GI)
Will need eventual UGI to evaluate for relief of gastric obstruction; given ongoing nausea it is too soon to pursue this as high risk of vomiting/aspiration with study
Medical management as per primary team
Subjective Data
-
Date of Service: July 15, 2024
Patient seen and examined at bedside with Dr. Kolb. Sleepy. Reporting intermittent nausea to nursing over the course of the morning. Thirsty.
Objective Data
-
Intake and Output
07/14/24 07/15/24 07/16/24
06:59 06:59 06:59
Intake Total 1500 / 1500
Output Total 525 / 525 550 / 550
Balance 975 / 975 -550 / -550
Intake:
IV fluids (Total) 1500 / 1500
Output:
Gastrointestinal tube output ( 525 / 525 350 / 350
Total)
[place] Sump 525 / 525 350 / 350
Urine, Voided 200 / 200
Other:
Number of approximated MODERATE 4
amounts of urine
Number of approximated LARGE 2
amounts of urine
How many times incontinent 1
MODERATE amount urine
How many times incontinent 1
SATURATED amount urine
Vital Signs
Temp Pulse Resp BP Pulse Ox
98.4 F 92 20 170/85 96
07/15/24 07:11 07/15/24 05:45 07/15/24 07:11 07/15/24 05:42 07/15/24 07:11
Lab Results
07/15/24 05:24
07/15/24 05:24
Calcium 8.4 mg/dl (8.4-10.2) 07/15/24 05:24
Magnesium 2.0 mg/dl (1.6-2.3) 07/15/24 05:24
Total Bilirubin 0.9 mg/dl (0.2-1.3) 07/14/24 12:01
AST 45 U/L (14-36) H 07/14/24 12:01
ALT 22 U/L (0-35) 07/14/24 12:01
Alkaline Phosphatase 96 U/L (38-126) 07/14/24 12:01
Total Protein 6.4 g/dl (6.3-8.2) 07/14/24 12:01
Albumin 4.1 g/dl (3.5-5.0) 07/14/24 12:01
Physical Exam
-
NAD, sleeping
Abdomen soft nondistended and no tenderness
--- NOTE | 2024-07-15 10:54 | W.PN.NEURO.1 ---
Today's Communication / Plan
-
.
Subjective/Objective
Subjective Data
Date of Service: July 15, 2024
Neurology Follow Up Note.
Labs�WBCs�16.1, sodium�133, LDL 96, hemoglobin A1c�7.3
Ms. Wright reports no complaints. No reports of of headache, change in strength, sensation.
PMH:CAD, STEMI, HTN, HLD, DM, paraesophageal hernia, and GERD, ambulatory dysfunction.
PSH:PTCI(07/14/2024), TKA
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
FH: Father�coronary artery disease
All: Nitrofurantoin, sulfamethoxazole, permethrin
ROS: Negative for headache, change in vision, strength, sensory changes.
General:In no acute distress.
Cardio: Tachycardic.
Neuro:
Mental Status: Awake, oriented to month, year, not to date. Follows complex requests across midline. Able to name and repeat. No hemineglect.
Cranial Nerves: Pupils are equally round and reactive to light. Horizontal EOMs full. Visual gaxiola full to confrontation. No facial symmetry. No dysarthria.
Motor: No PAD or leg drift.
Sensory: Normal vibration at the ankles.
Coordination: No dysmetria
Gait: deferred
Assessment and Plan:
I. Toxic encephalopathy, resolved.
II. STEMI status post PCI of the proximal and mid LAD
III. CONG
-Continue Telemetry monitoring.
-Will follow-up CT head results.
-Would defer antithrombotic choice to cardiology service
-Lipitor 40 mg once a day
-DVT prophylaxis.
-LDL goal�less than 70, hemoglobin A1c goal less than 7.
-Please recall neurology service with any questions or concerns.
I personally reviewed all radiology and labs along with past medical records pertinent to current medical problems. Total time spent in patient care is 35 minutes.
Thank you for allowing us to participate in the care of this patient. Please do not hesitate to contact us with any questions or concerns.
Objective Data
Vital Signs
Temp Pulse Resp BP Pulse Ox
36.9 C 92 20 170/85 96
07/15/24 07:11 07/15/24 05:45 07/15/24 07:11 07/15/24 05:42 07/15/24 07:11
Lab Results
07/15/24 05:24
07/15/24 05:24
PT 14.0 Sec (11.4-14.6) 07/14/24 19:48
INR 1.03 07/14/24 19:48
APTT 59.3 Sec (23.4-35.0) H 07/14/24 19:48
Sodium 133 mmol/L (135-145) L 07/15/24 05:24
Potassium 3.5 mmol/L (3.5-5.1) 07/15/24 05:24
BUN 16 mg/dl (7-17) 07/15/24 05:24
Glucose 154 mg/dl (70-99) H 07/15/24 05:24
Calcium 8.4 mg/dl (8.4-10.2) 07/15/24 05:24
LDL Cholesterol, Calc 96 mg/dl 07/15/24 05:24
Patient Allergies
nitrofurantoin [From Macrodantin] Allergy (Verified 07/12/24 19:54)
Rash
sulfamethoxazole [From Bactrim] Allergy (Verified 07/12/24 19:54)
Rash
trimethoprim [From Bactrim] Allergy (Verified 07/12/24 19:54)
Rash
Vital Signs and Labs
-
Vital Signs and Labs:
Vital Signs
Temp Pulse Resp BP Pulse Ox
36.9 C 92 20 170/85 96
07/15/24 07:11 07/15/24 05:45 07/15/24 07:11 07/15/24 05:42 07/15/24 07:11
Lab Results
07/15/24 05:24
07/15/24 05:24
PT 14.0 Sec (11.4-14.6) 07/14/24 19:48
INR 1.03 07/14/24 19:48
APTT 59.3 Sec (23.4-35.0) H 07/14/24 19:48
Sodium 133 mmol/L (135-145) L 07/15/24 05:24
Potassium 3.5 mmol/L (3.5-5.1) 07/15/24 05:24
BUN 16 mg/dl (7-17) 07/15/24 05:24
Glucose 154 mg/dl (70-99) H 07/15/24 05:24
Calcium 8.4 mg/dl (8.4-10.2) 07/15/24 05:24
LDL Cholesterol, Calc 96 mg/dl 07/15/24 05:24
Medications
-
Medications:
Generic Name Dose Route Start Last Admin
Trade Name Freq PRN Reason Stop Dose Admin
Aspirin 300 mg 07/15/24 08:00 07/15/24 09:14
Aspirin 300 Mg Rectal Suppository RECTAL 08/12/24 07:59 300 mg
DAILY RAMIRO Administration
Atorvastatin Calcium 40 mg 07/14/24 18:00 07/14/24 18:26
Atorvastatin (Lipitor) 40 Mg Tablet PO 08/11/24 17:59 Not Given
QPM RAMIRO
Cefepime HCl 1,000 mg 07/13/24 10:00 07/15/24 01:59
Cefepime Hcl 1,000 Mg/11.3 Ml Vial IV 1,000 mg
Q8H RAMIRO Administration
Dextrose 12.5 grams 07/12/24 13:19
Dextrose 50% (0.5 Grams/Ml) 50 Ml Syringe IV 08/09/24 13:18
[id number] PRN
hypoglycemia
Protocol
Enoxaparin Sodium 40 mg 07/13/24 18:00 07/14/24 19:14
Enoxaparin Sodium 40 Mg/0.4 Ml Syringe SC 08/10/24 17:59 Not Given
QPM RAMIRO
Glucagon 1 mg 07/12/24 13:19
Glucagon 1 Mg Vial IM 08/09/24 13:18
PRN PRN
hypoglycemia
Protocol
Hydromorphone HCl 0.5 mg 07/12/24 13:19 07/12/24 22:29
Hydromorphone 0.5 Mg/0.5 Ml Syringe IV 07/26/24 13:18 0.5 mg
Q4HPRN PRN Administration
Severe Pain
Sodium Chloride 1,000 mls @ 125 mls/hr 07/13/24 15:15 07/15/24 09:24
Nss IV 1,000 mls
.Q8H RAMIRO Administration
Sodium Chloride 1,000 mls @ 0 mls/hr 07/14/24 15:45
Nss IV 07/15/24 15:43
PER PROTOCOL RAMIRO
Protocol
Per Protocol
Eptifibatide 75,000 mcg in 100 mls @ 9 mls/hr 07/14/24 15:45 07/15/24 08:55
Integrilin IV 07/15/24 15:44 100 mls
ORDERED RATE RAMIRO Administration
Potassium Chloride 40 meq/ 270 mls @ 67.5 mls/hr 07/15/24 09:48
Sodium Chloride IV 07/15/24 13:47
NOW STA
Insulin Aspart 0 units 07/12/24 13:19 07/15/24 09:42
Insulin Aspart Moderate Resistance 300 Units/3 Ml Pen.Injctr SC 08/09/24 13:18 Not Given
AC RAMIRO
Protocol
Lorazepam 0.25 mg 07/14/24 18:00
Lorazepam 2 Mg/Ml Vial IV 08/11/24 17:59
Q8HPRN PRN
anxiety
Metoprolol Tartrate 7.5 mg 07/15/24 12:00
Metoprolol 5 Mg/5 Ml Vial IV 08/12/24 11:59
Q6 RAMIRO
Ondansetron HCl 4 mg 07/12/24 13:19 07/15/24 05:43
Ondansetron 4 Mg/2 Ml Vial IV 08/09/24 13:18 4 mg
Q6HPRN PRN Administration
nausea and vomiting
Pantoprazole Sodium 40 mg 07/12/24 13:19 07/15/24 09:14
Pantoprazole Sodium 40 Mg/10 Ml Vial IV 08/09/24 13:18 40 mg
BID RAMIRO Administration
Sodium Chloride 0 flush 07/12/24 14:00
Sodium Chloride 0.9% (Flush) Syringe IV 08/09/24 13:59
PER PROTOCOL RAMIRO
Sodium Chloride 10 ml 07/12/24 14:00 07/15/24 09:14
Sodium Chloride 0.9% (Preservative Free) 10 Ml Vial IV 08/09/24 13:59 10 ml
BID RAMIRO Administration
Sodium Chloride 0.125 ml 07/14/24 18:00
Nss (Pf) 10 Ml Vial For Ativan 0.25 Mg Dose IV 08/11/24 17:59
TIDPRN PRN
IV LORAZEPAM DILUTION
Sterile Water 10 ml 07/13/24 10:00 07/15/24 01:59
Sterile Water For Injection 10 Ml Vial IV 08/10/24 09:59 10 ml
Q8H RAMIRO Administration
Home Medications
-
Home Medications
atenolol 25 mg tablet 25 mg PO HS Blood Pressure 04/01/17
metformin 500 mg tablet,extended release 24 hr 500 mg PO BID Diabetes 04/01/17
omeprazole 20 mg capsule,delayed release 20 mg PO DAILY Gastrointestinal Issue 04/01/17
atorvastatin 20 mg tablet (Lipitor) 20 mg PO HS High Cholesterol 05/29/23
celecoxib 200 mg capsule (Celebrex) 200 mg PO DAILY Pain 05/29/23
cholecalciferol (vitamin D3) 25 mcg (1,000 unit) capsule (Vitamin D3) 25 mcg PO DAILY Supplement 05/29/23
gabapentin 100 mg capsule 200 mg PO BID Pain 05/29/23
sertraline 25 mg tablet 25 mg PO QPM Mental Health/Anxiety 05/29/23
vitamin E 268 mg (400 unit) capsule 268 mg PO DAILY Supplement 05/29/23
acetaminophen 500 mg tablet (Tylenol Extra Strength) 1,000 mg PO BID Pain 07/12/24
alprazolam 0.25 mg tablet (Xanax) 0.25 mg PO DAILYPRN PRN panic attacks 07/12/24
amlodipine 5 mg-benazepril 40 mg capsule 1 cap PO DAILY Blood Pressure 07/12/24
azithromycin 250 mg tablet 250 mg PO DAILY Infection 07/12/24
propranolol 60 mg capsule,24 hr,extended release 60 mg PO HS Blood Pressure 07/12/24
[2024-07-15] MEDS: KCL 270 MEQ IV (11:05)
[2024-07-15] MEDS: LOPRESSOR 2.5 MG IV (11:06)
--- NOTE | 2024-07-15 12:26 | CON.INTV ---
Consultation
Consultation Request
Date/Time Consultation Requested: 07/15/24
Date/Time Consultation Performed: 07/15/24
Requesting Provider: Dr. Edson Woodson
Performing Provider: Dr. Maldonado/Dr. Weber
Medical History
-
Chief Complaint: nausea
History of Present Illness:
83yo F with PMH GERD/hiatal hernia, HTN, DM-II who presented to ED 07/12/24 for nausea, vomiting, and chest/back pain which was worsening over 1-2 weeks prior to admission. Initial workup on admission: EKG normal sinus rhythm, troponin negative x2,
CTA no evidence of thoracic aortic aneurysm or dissection, +moderate coronary artery calcification, +large hiatal hernia. She has a known history of hital hernia and had a previous EGD on 10/22/[address] Mixon which revealed tortuous esophagus with
possible varices, erythematous mucosa in antrum, and large hiatal hernia with gastric rotation. In ED this admission, NGT unable to be placed initially; NGT placed by GI and surgery on 07/13 but patient subsequently removed. Plan was for NG
decompression and possible upper GI series; however on 07/14 patient had episode of syncope accompanied by EKG changes and positive troponin, for which she underwent cardiac catheterization and PCI. During procedure, she went into torsades de
pointes with spontaneous resolution. Later in day on 07/14 patient had a rapid response called for AMS, for which neurology was consulted. Her head CT was negative for acute stroke, and her head/neck CTA showed patent t[place]ip of mohan and cerebral
artery blood flow (only occlusion was right vertebral artery at V3 segment). Cardiology, GI, general surgery, neurology are following. Given that patient is NPO and may require procedure for hiatal hernia, patient anticoagulation was changed to IV
cangrelor and she moved to ICU for monitoring while using new medication.
Patient seen and evaluated in IVU. Her biggest complaint is feeling 'lousy.' She reports nausea, fatigue, and dry mouth. She denies lightheadedness, dizziness, chest pain/pressure, shortness of breath, vomiting, diarrhea, black/bloody stools,
abdominal pain. She denies any pain. Prior to admission, notes some dysphagia though was able to eat and drink at home, was living independently. BP 154/98, HR 99, RR 20, SpO2 97% on 2LNC, T 98.4.
Past Medical History
Past Medical History: Arrhythmias (torsades de pointes 07/14/24), CAD, GERD, HTN, NIDDM, IA (s/p PCI 07/14/24), Psychiatric (anxiety) and Other (tortuous esophagus with possible varices, degenerative disc disease, fibrocystic breast disease)
Past Surgical History: Cardiac (PCI 07/14/24), Orthopedic (L TKA, L rotator cuff repair) and Other (MILD procedure (2023), bilateral breast biopsies)
Social History
Tobacco: Non-smoker
Alcohol: Occasional (< 1-2 drinks/month)
Drug: None
Living: Alone
Employment: Retired
Allergies / Home Medications
Allergies
Allergy/AdvReac Type Severity Reaction Status Date / Time
nitrofurantoin Allergy Rash Verified 07/12/24 19:54
[From Macrodantin]
sulfamethoxazole Allergy Rash Verified 07/12/24 19:54
[From Bactrim]
trimethoprim [From Bactrim] Allergy Rash Verified 07/12/24 19:54
Home Medications
�Medication �Instructions �Recorded �Confirmed �Last Taken �Type
atenolol 25 mg tablet 25 mg PO HS Blood Pressure 04/01/17 07/12/24 07/11/24 History
metformin 500 mg tablet,extended 500 mg PO BID Diabetes 04/01/17 07/12/24 07/11/24 History
release 24 hr
omeprazole 20 mg capsule,delayed 20 mg PO DAILY Gastrointestinal 04/01/17 07/12/24 07/11/24 History
release Issue
atorvastatin 20 mg tablet (Lipitor) 20 mg PO HS High Cholesterol 05/29/23 07/12/24 07/11/24 History
celecoxib 200 mg capsule (Celebrex) 200 mg PO DAILY Pain 05/29/23 07/12/24 07/11/24 History
cholecalciferol (vitamin D3) 25 25 mcg PO DAILY Supplement 05/29/23 07/12/24 07/11/24 History
mcg (1,000 unit) capsule (Vitamin
D3)
gabapentin 100 mg capsule 200 mg PO BID Pain 05/29/23 07/12/24 07/11/24 History
sertraline 25 mg tablet 25 mg PO QPM Mental Health/Anxiety 05/29/23 07/12/24 07/11/24 History
vitamin E 268 mg (400 unit) capsule 268 mg PO DAILY Supplement 05/29/23 07/12/24 07/11/24 History
acetaminophen 500 mg tablet 1,000 mg PO BID Pain 07/12/24 07/12/24 07/11/24 History
(Tylenol Extra Strength)
alprazolam 0.25 mg tablet (Xanax) 0.25 mg PO DAILYPRN PRN panic 07/12/24 07/12/24 07/11/24 History
attacks
amlodipine 5 mg-benazepril 40 mg 1 cap PO DAILY Blood Pressure 07/12/24 07/12/24 07/11/24 History
capsule
azithromycin 250 mg tablet 250 mg PO DAILY Infection 07/12/24 07/12/24 07/11/24 History
propranolol 60 mg capsule,24 60 mg PO HS Blood Pressure 07/12/24 07/12/24 07/11/24 History
hr,extended release
Review of Systems
-
History Source: Patient
Constitutional: Fever (negative), Fatigue and Chills (negative)
Respiratory: Cough (negative) and Trouble Breathing (negative)
Cardiac: Chest Pain (negative), Diaphoresis (negative) and Palpitations (negative)
Abdomen/GI: Nausea, Vomiting (negative), Diarrhea (negative), Constipated, Bloody Stools (negative), Black Stools (negative) and Pain (negative)
: Dysuria (improving)
Musculoskeletal: Joint Pain (negative), Muscle Pain (negative) and Edema (negative)
Skin: Itching (negative), Rash (negative) and Other (bruises on chest, L shoulder)
Neuro: Dizzy (negative) and Headache (negative)
Hematologic/Lymphatic: Bleeding (negative)
Vitals / Labs / Diagnostic Testing
Vital Signs
Temp Pulse Resp BP Pulse Ox
98.4 F 103 20 154/98 96
07/15/24 07:11 07/15/24 12:15 07/15/24 07:11 07/15/24 11:06 07/15/24 07:11
Lab Data
07/15/24 05:24
07/15/24 05:24
Laboratory Results
07/14/24
19:48
PT 14.0
INR 1.03
APTT 59.3 H
Microbiology
07/12/24 15:07 Urine Urine Culture - Final
Klebsiella pneumoniae
Diagnostic Testing:
Physical Exam
-
HEENT: Normocephalic and Anicteric
Cardiovascular: S1/S2, Regular Rhythm, Murmur (negative), Peripheral Edema (negative) and Calf Tenderness (negative)
Respiratory: Clear (bilaterally, diminished breath sounds, no wheeze/rhonchi/rales), Non-Labored Respirations, Accessory Resp Muscle Use (negative) and Other (oxygen: 2L NC)
GI: Soft, Non Distended, Non Tender and Normal Bowel Sounds
Neurology: Awake, Alert, Oriented and AO x 3
Skin: Warm, Dry and Good Color
General: Comfortable and Pain (negative)
Assessment
-
83yo F with PMH GERD/hiatal hernia, HTN, DM-II who presented to ED 07/12/24 for nausea, vomiting, and chest/back pain which was worsening over 1-2 weeks prior to admission. Initial workup on admission: EKG normal sinus rhythm, troponin negative x2,
CTA no evidence of thoracic aortic aneurysm or dissection, +moderate coronary artery calcification, +large hiatal hernia. She has a known history of hiatal hernia and had a previous EGD on 10/22/[address] Mixon which revealed tortuous esophagus with
possible varices, erythematous mucosa in antrum, and large hiatal hernia with gastric rotation. In ED this admission, NGT unable to be placed initially; NGT placed by GI and surgery on 07/13 but patient subsequently removed. Plan was for NG
decompression and possible upper GI series; however on 07/14 patient had episode of syncope accompanied by EKG changes and positive troponin, for which she underwent cardiac catheterization and PCI. During procedure, she went into torsades de
pointes with spontaneous resolution. Later in day on 07/14 patient had a rapid response called for AMS, for which neurology was consulted. Her head CT was negative for acute stroke, and her head/neck CTA showed patent t[place] of mohan and cerebral
artery blood flow (only occlusion was right vertebral artery at V3 segment). Cardiology, GI, general surgery, neurology are following. Given that patient is NPO and may require procedure for hiatal hernia, patient anticoagulation was changed to IV
cangrelor and she moved to ICU for monitoring while using new medication.
#NSTEMI s/p LAD ANGEL LUIS x2 07/14/24
#Episode of Torsades de pointes vs V-fib, self limiting 07/14/24
#Sinus tachycardia
#Hypertension
#Moderate hypertriglyceridemia
#Symptomatic hiatal hernia
#GERD
#DM II not on insulin
#Symptomatic UTI- culture positive for Klebsiella
#Anxiety
#Syncope 07/14/24
#Encephalopathy 07/14/24
#Leukocytosis
#Hyponatremia
#Hypokalemia
#Chest wall ecchymosis
#Acute hypoxemic respiratory insufficiency
Plan:
- Continue dual antiplant therapy per cardiology- start IV cangrelor and continue rectal ASA
- Trend troponin until downtrending appropriately
- Restart atorvastatin when able to tolerate PO
- Continue IV metoprolol tartrate per cardiology and change to PO when able
- Continue to monitor for any bleeding or spontaneous bruising, trend hgb daily
- Maintain NPO
- EGD today, possible NGT placement
- Continue all IV medications and IVF until cleared by GI, surgery, primary teams
- Continue IV protonix BID and prn zofran
- Continue IV NS
- Metformin held while NPO
- Continue accuchecks and insulin sliding scale
- Repeat head CT this PM per neurology
- Continue neuro checks
- Repeat BMP this PM
- Supplement electrolytes prn
- Continue IV ativan prn for anxiety though can contribute to AMS in 83yo
- Continue treatment of Klebsiella UTI per primary team, on cefepime now
- Continue IV ativan prn for anxiety
- Wean oxygen as tolerated
- VTE ppx: lovenox
- Reviewed code status with patient today and she would like to be DNR
- If she required a medical decision maker, it would be daughter Jessica
Data:
Head CT 07/14/24:
Stable mild chronic findings. No acute intracranial hemorrhage. No evidence to suggest acute large vascular territory transcortical infarct at this time.
Head/neck CTA 07/14/24:
No t[place]ip of [place] region aneurysm or stenosis.
No cerebral artery significant plaque, stenosis, thrombus, or occlusion.
The cervical carotid and vertebral arteries are patent without significant plaque, stenosis, occlusion, or dissection. 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
The right vertebral artery is occluded at the V3 segment, with lack of intraluminal contrast opacification beyond the proximal intradural component at the posterior margin of the occipital condyle. The left intradural vertebral artery is dominant
and patent.
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 Bilateral patent posterior communicating arteries.
Degree of stenosis based on NASCET criteria.
Chest CTA 07/12/24:
1. No evidence of thoracic aortic aneurysm or dissection. No pulmonary embolism.
2. Moderate coronary arterial calcification. Please correlate with symptoms of and risk factors for coronary artery disease, with further workup as clinically appropriate.
3. Large hiatal hernia, without evidence of incarceration.
[2024-07-15] MEDS: LOPRESSOR 7.5 MG IV ×3 (12:39→23:45)
[2024-07-15 12:42] LABS: Glucose - Point of Care 186 mg/dl (70-99)
--- NOTE | 2024-07-15 13:39 | CM ---
Reviewed chart. Mrs. Wright was transferred to IVU. Currently is being transferred to ICU. Prior to admission she resides alone in a one story home. Prior to admission she ambulated with a walker. She was current with [facility] at home for
physical and occupational therapy. Will need to see her functional level to see if she will have any skilled care needs. Medical work-up in progress. The discharge plan is is some level of inpatient rehab. versus home with [facility] and/or [facility].
services when medically stable.
[2024-07-15] MEDS: NOVOLOG FLEXPEN-MODERATE RESISTANCE 1 UNITS SC (13:57)
--- NOTE | 2024-07-15 14:28 | W.PN.HOSP.TC ---
Today's Communication/Plan
-
Assessment / Plan
Assessment / Plan
CAD
-S/p PCI
-Restart Integrilin until able to initiate cangrelor, then discontinue Integrilin
-Continue aspirin
�IV Lopressor
-Not sure if utility and trending troponins post cath. Will hold off on this
-Cardiac rehab
-Monitor on telemetry
Paraesophageal hernia/gastric outlet obstruction
-Surgery following considering to take to the OR however GI to evaluate for potential GI compression and NGT placement
-Continue n.p.o. strict, all medication should be IV
-Hold NSAID
-Continue PPI
Toxic metabolic encephalopathy
-Neurology following reason
-Head CT no acute intracranial
Hypertension
-As needed IV agents as needed as strict n.p.o.
-Could even consider IV JAMILAH inhibitor as renal function is stable or IV hydralazine
-Otherwise continue IV metoprolol for
Anxiety
-Hold sertraline
-As needed Ativan
Hyperlipidemia
-Hold Lipitor
Anticipated Discharge: > 48 hours
Subjective/Interval History
-
Date of Service: July 15, 2024
Seen and examined. No new complaints
Taken to Heating Plant Superintendent yesterday in the evening found to have a LAD lesion that was successfully stented
-Being moved over to ICU for intravenous Plavix, monitor bleeding
Objective Data
-
Labs:
Laboratory Results
07/15/24
05:24
WBC 16.1 H
Hgb 12.8
Hct 38.6
Plt Count 362
Sodium 133 L
Potassium 3.5
Chloride 100
Carbon Dioxide 21 L
BUN 16
Creatinine 0.6
Glucose 154 H
Calcium 8.4
Vital Signs:
Vital Signs
Temp Pulse Resp BP Pulse Ox
98.4 F 99 20 154/98 96
07/15/24 07:11 07/15/24 12:39 07/15/24 07:11 07/15/24 11:06 07/15/24 07:11
I&O
07/14/24 07/15/24 07/16/24
06:59 06:59 06:59
Intake Total 1500 / 1500
Output Total 525 / 525 550 / 550
Balance 975 / 975 -550 / -550
Physical Exam
-
General: Well Developed and Well Nourished
HEENT: Normocephalic and Atraumatic
Respiratory: Decreased Breath Sounds
Cardiac: Regular Rhythm, S1/S2 and Murmur
GI: Soft, Nontender, Nondistended and Normal Bowel Sounds
Musculoskeletal: No Clubbing, No Cyanosis and No Edema
Skin: Warm
Neuro: Awake, Alert, Oriented and AO x 3
Psych: Calm
--- NOTE | 2024-07-15 14:40 | PTCARENOTE ---
Addendum entered by Juliana Bateman RN 07/15/24 19:12:
18F L nare [place] sump inserted during EGD; secured @ 55cm, placement verified by Dr. Benton via scope. Small-mod amt of brown/green output.
Original Note:
Received pt as transfer into ICU rm [id number]. Pt. max assisted into new bed; able to TITUS w generalized weakness. AAOx3, denies pain @ this time. SR-ST on monitor. SpO2 97% on 2LNC, shallow breath/MELENDEZ. Hypoactive BS; strict NPO status maintained
pending EGD. Inc of bladder, purewick in place draining clear/yellow urine. K+ rider infusing via R hand PIV. NSS @ 125mL/hr infusing via L hand PIV. Integrilin infusing per orders- see flow sheet. EGD team to bedside @ this time. Plan of care
in progress.
--- NOTE | 2024-07-15 15:33 | W.PN.UPDATE ---
Update Note
Progress Note Update
EGD done
Exam to 2nd portion duodenum
Tortuous esophagus
Large hiatal hernia. No evidence of incarceration or torsion
Blood clot seen at apex of duodenal bulb. Not disturbed since pt is on integrilin following ACS/cardiac stent
18 Fr NGT placed into body of stomach with some difficulty given her anatomy
REC:
NPO
NGT to low intermittent suction
Protonix gtt
Trend Hgb
Reassess in am and decide on trial of PO vs UGI study.
[2024-07-15] MEDS: PROTONIX 100 IV (16:20)
[2024-07-15] MEDS: LIPITOR PO (16:21)
[2024-07-15] MEDS: KENGREAL 255 MCG IV (16:52)
[2024-07-15 18:17] LABS: Glucose - Point of Care 147 mg/dl (70-99)
[2024-07-15] MEDS: LOVENOX 40 MG SC (18:28)
--- NOTE | 2024-07-15 19:12 | PTCARENOTE ---
Integrilin gtt discontinued-see flow sheet. Kengreal gtt initiated @ 13.5mL/hr per orders-see flow sheet; med extensively discussed w pharmacy prior to admin. Pt. transported via bed to CT scan and back; no adventitious events. Pt. continues on
IVF, protonix gtt, and Kengreal gtt. Dayne CAMPBELLT to PHAN. Family @ bedside updated. Call ann clark in reach.
[2024-07-15] MEDS: NSS (PRESERVATIVE FREE) 0.125 ML IV (19:13)
[2024-07-15] MEDS: ATIVAN 0.25 MG IV (19:13)
--- NOTE | 2024-07-15 20:00 | PTCARENOTE ---
Received patient at 1900. Pt. currently in bed. Awake, alert, and oriented. States she is anxious. PRN medication given, see MAR. Denies pain/discomfort. Afebrile. Heart rhythm sinus. Blood pressure normotensive. Currently on 2L nasal cannula. Lungs
sound diminished. NPO. Pt. voiding, purewick drainage device in place. Skin as documented. Discussed plan of care with patient. Vital signs stable at this time.
[2024-07-15] MEDS: NSS (PRESERVATIVE FREE) IV (21:49)
[2024-07-15 22:09] LABS: Blood Urea Nitrogen 22 mg/dl (7-17); Calcium 8.4 mg/dl (8.4-10.2); Carbon Dioxide 19 mmol/L (22-30); Chloride 105 mmol/L (98-107); Estimated Creatinine Clearance 53 ml/min; Glucose 158 mg/dl (70-99); Phosphorus 2.3 mg/dl (2.5-4.5); Sodium 134 mmol/L (135-145); eGFR > 60.00
[2024-07-16] VITALS (28 sets, daily range): BP systolic 115–180; BP diastolic 67–105; BMI 29.3
--- NOTE | 2024-07-16 00:05 | PTCARENOTE ---
Pt. continues to be forgetful at times. Pulling at NG tube frequently. Restraints ordered to prevent NG tube from being dislodged. Pt. with multiple request for water and cola. Explained to patient multiple times that she is currently cannot have
anything by mouth. Vital signs are stable at this time.
[2024-07-16] MEDS: NOVOLOG FLEXPEN-MODERATE RESISTANCE SC ×2 (00:47→23:18)
[2024-07-16 00:48] LABS: Glucose - Point of Care 136 mg/dl (70-99)
[2024-07-16] MEDS: PROTONIX 100 IV ×3 (02:19→19:30)
[2024-07-16] MEDS: MAXIPIME 1000 MG IV ×3 (02:41→18:07)
[2024-07-16] MEDS: STERILE WATER FOR INJECTION 10 ML IV ×3 (02:41→18:07)
[2024-07-16 03:24] LABS: Hematocrit 35.7 % (37.0-47.0); Hemoglobin 11.8 g/dL (12.0-16.0); Mean Corp Hgb Conc. 33.1 g/dL (33.0-37.0); Mean Corpuscular Hgb 30.2 pg (27.0-31.0); Mean Corpuscular Volume 91.3 fL (81.0-99.0); Mean Platelet Volume 11.1 fL (7.4-10.4); Platelet Count 331 10^3/uL (130-400); Red Blood Cell Count 3.91 10^6/uL (4.20-5.40); Red Cell Dist. Width 13.2 % (11.5-14.5)
--- NOTE | 2024-07-16 03:30 | PTCARENOTE ---
Pt. assessment unchanged. Remains forgetful. Pt. continues to make attempts to pull at tubes/lines. R hand IV found to be leaking. New peripheral infuser placed. Leaking IV removed. Am labs drawn. Vital signs stable at this time.
[2024-07-16] MEDS: ATIVAN 0.25 MG IV ×2 (03:51→20:23)
[2024-07-16 03:52] LABS: ALT (SGPT) 22 U/L (0-35); AST (SGOT) 51 U/L (14-36); Albumin 3.2 g/dl (3.5-5.0); Alkaline Phosphatase 75 U/L (38-126); Blood Urea Nitrogen 24 mg/dl (7-17); Calcium 8.4 mg/dl (8.4-10.2); Carbon Dioxide 22 mmol/L (22-30); Chloride 105 mmol/L (98-107); Estimated Creatinine Clearance 54 ml/min; Glucose 155 mg/dl (70-99); Potassium 3.9 mmol/L (3.5-5.1); Sodium 135 mmol/L (135-145); Total Bilirubin 0.9 mg/dl (0.2-1.3); Total Protein 5.4 g/dl (6.3-8.2); eGFR > 60.00
[2024-07-16] MEDS: LOPRESSOR 7.5 MG IV ×4 (05:05→23:47)
[2024-07-16] MEDS: NSS 1000 IV ×2 (05:06→18:02)
[2024-07-16] MEDS: NOVOLOG FLEXPEN-MODERATE RESISTANCE 1 UNITS SC ×3 (05:17→18:23)
[2024-07-16 05:27] LABS: Glucose - Point of Care 150 mg/dl (70-99)
--- NOTE | 2024-07-16 08:18 | W.PN.GI.CBS2 ---
Today's Communication / Plan
-
Please see assessment and plan for details.
Assessment / Plan
-
1. Chest pain: Was likely more cardiac in nature, especially given EGD findings without any significant torsion or other significant gastric pathology. There was a small clot noted in the duodenum, the no active bleeding, has minimal bilious
output from NG tube today and hemoglobin has remained essentially stable. Given difficulty in placing NG tube will hold on removing for now, especially given now with rapid A-fib. Okay from GI standpoint for antiplatelet/anticoagulation if needed.
If does well then we will clamp NG tube later today and assess overnight, okay for ice chips, will continue PPI.
Subjective
Subjective
Date of Service: July 16, 2024
Patient feeling okay, no abdominal pain, chest pain or shortness of breath, though was in rapid A-fib this morning. Small amount of bilious output from NG tube. She denies any lightheadedness or dizziness.
Objective
Data Reviewed
Laboratory Data:
Laboratory Results
07/16/24 03:10
07/16/24 03:10
Laboratory Results
PT 14.0 Sec (11.4-14.6) 07/14/24 19:48
INR 1.03 07/14/24 19:48
APTT 59.3 Sec (23.4-35.0) H 07/14/24 19:48
Phosphorus 2.3 mg/dl (2.5-4.5) L 07/15/24 21:34
Magnesium 2.0 mg/dl (1.6-2.3) 07/15/24 21:34
Total Bilirubin 0.9 mg/dl (0.2-1.3) 07/16/24 03:10
AST 51 U/L (14-36) H 07/16/24 03:10
ALT 22 U/L (0-35) 07/16/24 03:10
Alkaline Phosphatase 75 U/L (38-126) 07/16/24 03:10
Lipase 119 U/L (23-300) 07/12/24 01:34
Vital Signs and I&O:
Vital Signs
Temp Pulse Resp BP Pulse Ox
98.4 F 92 30 164/96 96
07/15/24 23:25 07/16/24 06:09 07/16/24 06:09 07/16/24 06:09 07/16/24 06:09
I&O
07/15/24 07/16/24 07/17/24
06:59 06:59 06:59
Intake Total 2267.0 / 2267.0
Output Total 550 / 550 500 / 500
Balance -550 / -550 1767.0 / 1767.0
Physical Exam
Physical Exam
General: NAD
Abdomen: normal bowel sounds, soft, no tenderness, no masses or bruits, no ascites
--- NOTE | 2024-07-16 08:24 | W.PN.INTV ---
Today's Communication / Plan
Recommendations
NPO with upper GI series pending for tomorrow
If upper GI series shows no evidence of gastric outlet obstruction or obstruction in the bowel, then would transition rectal ASA to ASA through NGT and also start statin
Continue with cangrelor
Eventually will need to start heparin drip versus Eliquis given her A-fib
Rate control with goal HR <110
Continue amiodarone drip
Pain control
Maintain BG 140�180 with ISS q6hr
Continue ICU level
Assessment
-
83yo F with PMH GERD/hiatal hernia, HTN, DM-II who presented to ED 07/12/24 for nausea, vomiting, and chest/back pain which was worsening over 1-2 weeks prior to admission. Initial workup on admission: EKG normal sinus rhythm, troponin negative x2,
CTA no evidence of thoracic aortic aneurysm or dissection, +moderate coronary artery calcification, +large hiatal hernia. She has a known history of hiatal hernia and had a previous EGD on 10/22/[address] Mixon which revealed tortuous esophagus with
possible varices, erythematous mucosa in antrum, and large hiatal hernia with gastric rotation. In ED this admission, NGT unable to be placed initially; NGT placed by GI and surgery on 07/13 but patient subsequently removed. Plan was for NG
decompression and possible upper GI series; however on 07/14 patient had episode of syncope accompanied by EKG changes and positive troponin, for which she underwent cardiac catheterization and PCI. During procedure, she went into torsades de
pointes with spontaneous resolution. Later in day on 07/14 patient had a rapid response called for AMS, for which neurology was consulted. Her head CT was negative for acute stroke, and her head/neck CTA showed patent red devil of mohan and cerebral
artery blood flow (only occlusion was right vertebral artery at V3 segment). Cardiology, GI, general surgery, neurology are following. Given that patient is NPO and may require procedure for hiatal hernia, patient anticoagulation was changed to IV
cangrelor and she moved to ICU for monitoring while using new medication.
Impression:
#NSTEMI s/p IVUS-guided PCI of proximal and mid LAD with ANGEL LUIS x2 placed complicated by torsades de pointes
#Blood clot seen in duodenal bulb possibly related to multiple failed attempts of NGT placement
#AMS � likely related to anesthesia but TIA/CVA still in differential (although unlikely given negative CT head x2)
#UTI with UCx growing K. pneumonia (R to amp + unasyn; Intermediate to macrobid)
#Nausea/vomiting (vomiting now resolved) with suspected GOO
#Large hiatal hernia likely contributing to gastric outlet obstruction
#Leukocytosis
#Hyponatremia - now resolved
#Elevated troponin- initially due to ACS and now elevated due to s/p cardiac cath with PCI/ANGEL LUIS
#History of autoimmune hepatitis
#History of esophageal varices
Plan:
- Pt was started on cangrelor on 07/15 in setting of recent stent x2 to LAD on 07/14/2024 as Integrilin was turned off given that it had been on for >24-hours
- She is s/p EGD on 07/15/2024 which found a tortuous esophagus with a large hiatal hernia, with blood clot seen in the duodenal bulb, and an 18 [place] nasogastric tube was placed under endoscopic guidance
- Cardiology following and recs appreciated
- Continue ASA --> once UGI series is done tomorrow, change from rectal to ASA through NGT as long as now concern for GOO
- Start high intensity statin once cleared to use NGT after UGI series done tomorrow
- Continue IV Lopressor 7.5mg q6hr with holding parameters
- Replete K>4, Mg>2
- Maintain MAP>65
- Maintain SpO2 >94% with supplemental oxygen and titrate down as tolerated
- Troponin peaked at 7.62 on 07/15/2024 � no longer need to continue trending
- Keep NPO until UGI series is done tomorrow to assure no GOO
- GI consulted and recs appreciated
- General surgery consulted and recs appreciated
- PPI gtt (takes omemprazole 20mg daily at home)
- Continue aspiration precautions
- Continue cefepime (started on 07/13)
- Would give total of 6 days ABx
- If she remains stable then would narrow ABx to rocephin
- Continue neurochecks and NIHSS q shift
- Neurology consulted and recs appreciated
- Repeat CT head yesterday evening showed no acute intracranial pathology
- Continue IVF with NS 0.9% and continue trending sNa with goal 135-145
- Maintain euglycemia with goal BG 140-180mg/dL; continue ISS
- DVT ppx: LMWH
- Code status:�DNR/DNI
Continue with ICU level of care while patient remains on cangrelor drip.
Total time spent today was 76 minutes for this encounter. Time includes reviewing laboratory test/imaging results, reviewing pertinent medical records, obtaining and reviewing medical history, performing an appropriate exam, ordering medications,
tests and procedures. Time also includes documentation of this encounter, coordinating patient care and communicating with other healthcare professionals. Total time does not include separately billed tests performed on this date of service.
Data:
Head CT 07/14/2024:
Stable mild chronic findings. No acute intracranial hemorrhage. No evidence to suggest acute large vascular territory transcortical infarct at this time.
Head CT 07/15/2024:
There are no acute intracranial abnormalities. There is moderate diffuse cortical atrophy with mild nonspecific white matter changes
Head/neck CTA 07/14/24:
No red devil of Mohan region aneurysm or stenosis.
No cerebral artery significant plaque, stenosis, thrombus, or occlusion.
The cervical carotid and vertebral arteries are patent without significant plaque, stenosis, occlusion, or dissection. 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
The right vertebral artery is occluded at the V3 segment, with lack of intraluminal contrast opacification beyond the proximal intradural component at the posterior margin of the occipital condyle. The left intradural vertebral artery is dominant
and patent.
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 Bilateral patent posterior communicating arteries.
Degree of stenosis based on NASCET criteria.
Chest CTA 07/12/24:
1. No evidence of thoracic aortic aneurysm or dissection. No pulmonary embolism.
2. Moderate coronary arterial calcification. Please correlate with symptoms of and risk factors for coronary artery disease, with further workup as clinically appropriate.
3. Large hiatal hernia, without evidence of incarceration.
Subjective Dataa
Subjective Data
Date of Service:
Date of Service: July 16, 2024
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
Subjective:
Patient seen and evaluated today at bedside. Was in rapid A-fib earlier this morning and amiodarone drip started. Currently on amnio drip at 1 mg/min. Transitioned to normal sinus rhythm. Currently, heart rate 96, BP 141/95 and saturating 98% on
3.5 L/min. She is in no acute distress, denying chest pain, shortness of breath, fevers or chills.
Review of Systems
General: Other (Negative unless mentioned above)
Objective Data
Data Reviewed
Vital Signs / I&O / Oxygen:
Vital Signs
Temp Pulse Resp BP Pulse Ox
97.6 F 92 30 164/96 96
07/16/24 08:00 07/16/24 06:09 07/16/24 06:09 07/16/24 06:09 07/16/24 06:09
Intake and Output
07/15/24 07/16/24 07/17/24
06:59 06:59 06:59
Intake Total 2267.0 / 2267.0
Output Total 550 / 550 500 / 500
Balance -550 / -550 1767.0 / 1767.0
SaO2 96
Nasal Cannula flow liters per 2
minute
Physical Exam
General: Respiratory Distress (negative), Comfortable, Chills (negative) and Sweats (negative)
HEENT: Normocephalic, Anicteric and Moist Mucous Membranes
Cardiovascular: S1-S2, Rub (negative) and Peripheral Edema (negative)
Respiratory: Wheeze (negative), Crackles (negative), Rhonchi (negative), Non-Labored Respirations and Stridor (negative)
GI: Soft, Non Distended, Non Tender and Normal Bowel Sounds
Neurology: Awake, Alert and Tremors (negative)
Skin: Warm, Dry, Cyanosis (negative) and Jaundice (negative)
Labs/Micro/Reports
Lab Data
07/16/24 03:10
07/16/24 03:10
Microbiology
07/12/24 15:07 Urine Urine Culture - Final
Klebsiella pneumoniae
[2024-07-16] MEDS: CORDARONE 518 MG IV (08:39)
[2024-07-16] MEDS: NSS (PRESERVATIVE FREE) IV ×2 (08:39→19:45)
[2024-07-16] MEDS: ASPIRIN 300 MG RECTAL (08:39)
[2024-07-16] MEDS: CORDARONE 103 MG IV (08:39)
--- NOTE | 2024-07-16 08:45 | W.PN.CARDCBS ---
Today's Communication / Plan
-
IV amiodarone to help rate control A-fib would hold off on full anticoagulation
Continue IV Lopressor. Continue rectal aspirin.
For next 24 hours we will continue cangrelor. Hopefully if upper GI is stable we can proceed with initiating Plavix soon.
Weight is rising. Will likely need dose of IV Lasix over next 24 hours. Check proBNP.
Impression / Plan
-
Primary Rural Carrier: none
Assessment:
Presentation 07/12/2024 with N/V, chest and back pain
Large paraesophageal hernia
Concern for syncope on commode 07/14/24
NSTEMI 07/14/2024
s/p LAD ANGEL LUIS x 2 overlapping stents (prox [employer] [address] Dawes 2.25 x 26 ANGEL LUIS, mid LAD [employer]tr[employer] [place] 2.0 x 18 ANGEL LUIS)
Sinus tachycardia
Hyponatremia
HTN
HLD
GERD/hiatal hernia
Anxiety
Diabetes
History of esophageal varices
Cardiac catheterization 07/14/2024: LM: Patent. LAD proximal 70% with additional proximal 70 to 80% hazy stenosis/thrombosis, mid 70%, (status post emergent prox [employer]tr[employer] Ward [place] 2.25 x 26 ANGEL LUIS, mid LAD [employer] [place] frontier 2.0 x 18 ANGEL LUIS) .
Diagonal 70% ostial and 70% proximal. Circumflex: Patent. RCA: LI
Echo 07/14/2024: EF 45% with mild concentric LVH. Moderately reduced LV systolic function with anteroseptal and apical hypokinesis. Moderately enlarged LA. Mild MR, mild AAS with peak/mean gradient 12/8 mmHg. Mild to moderate TR, moderate
pulmonary hypertension with PAP 47 mmHg
Stress echo 10/2017: low risk stress test
Plan:
-Events yesterday noted. GI placed NG tube with EGD. No evidence of incarceration or torsion. There was a blood clot seen at the apex of the duodenal bulb. Patient was placed on Protonix drip.
-She remains on cangrelor. Plan from surgery is to decompress today and then order upper GI tomorrow. If she is not obstructed then plan will be to initiate diet. Will continue cangrelor for another 24 hours and hopefully start Plavix in AM. If
she is obstructed she may need surgery on Thursday. Continue rectal aspirin for now.
-After syncopal event 07/14/2024 patient found to have abnormal EKG which showed possible anterolateral ST elevation and trop elevated at 3 (trops negative x2 on admission). Prompting patient to undergo cardiac catheterization which demonstrated
multiple LAD lesions with concern for thrombosis for which patient underwent proximal LAD ANGEL LUIS. Procedure was complicated by distal dissection requiring additional ANGEL LUIS to mid LAD. Postprocedural angiography showed KATHIE-3 flow through LAD.
-Patient did have self limiting V-fib during procedure
-She is now in atrial fibrillation. Start IV amiodarone to help with rate control. With duodenal bulb blood clot would hold off on full anticoagulation. Continue aspirin and cangrelor.
Continue IV Lopressor 7.5 mg IV every 12. Eventual add statin when can take oral meds.
Hemoglobin overall stable at 11.8. Troponin trending down to 5.7. Creatinine normal at 0.6. LFTs remain slightly abnormal but stable.
Ongoing multidisciplinary discussion with peer financial counselor, GI, surgery, nursing, patient.
Total cc time 44 minutes with coordination of care with specialists
Progress Note - Rural Carrier
Subjective
Date of Service: July 16, 2024
Patient in intensive care unit now with rapid atrial fibrillation. NG tube in place. She denies any significant chest pains.
Objective
Labs:
07/16/24 03:10
07/16/24 03:10
Labs
Hgb 11.8 g/dL (12.0-16.0) L 07/16/24 03:10
Hct 35.7 % (37.0-47.0) L 07/16/24 03:10
Plt Count 331 10^3/uL (130-400) 07/16/24 03:10
PT 14.0 Sec (11.4-14.6) 07/14/24 19:48
INR 1.03 07/14/24 19:48
APTT 59.3 Sec (23.4-35.0) H 07/14/24 19:48
Sodium 135 mmol/L (135-145) 07/16/24 03:10
Potassium 3.9 mmol/L (3.5-5.1) 07/16/24 03:10
BUN 24 mg/dl (7-17) H 07/16/24 03:10
Creatinine 0.6 mg/dL (0.6-1.0) 07/16/24 03:10
Glucose 155 mg/dl (70-99) H 07/16/24 03:10
Troponins
07/14/24 07/14/24 07/14/24
10:45 12:01 19:48
Troponin I 3.430 H* 3.820 H* 6.200 H* D
07/15/24 07/15/24 07/16/24
13:00 21:34 03:10
Troponin I 7.100 H* 7.620 H* 5.720 H*
Vital Signs and I&O:
Vital Signs
Temp Pulse Resp BP Pulse Ox
98.4 F 92 30 164/96 96
07/15/24 23:25 07/16/24 06:09 07/16/24 06:09 07/16/24 06:09 07/16/24 06:09
Vital Signs
Temp Pulse Resp BP Pulse Ox
98.4 F 92 30 164/96 96
07/15/24 23:25 07/16/24 06:09 07/16/24 06:09 07/16/24 06:09 07/16/24 06:09
Intake & Output
07/14/24 07/15/24 07/16/24 07/17/24
06:59 06:59 06:59 06:59
Intake Total 1500 / 1500 2267.0 / 2267.0
Output Total 525 / 525 550 / 550 500 / 500
Balance 975 / 975 -550 / -550 1767.0 / 1767.0
Physical Exam
Physical Exam
GEN: No distress, awake, Ox3
HEENT: supple, anicteric, mmm, ng
LUNGS: scatt rhomnchi
CV: irreg, S1/S2, 1/6 syst LSB, no gallop
ABD: soft, BS+, NT/ND
EXT: No edema
NEURO: Gross non-focal
SKIN: No rash
--- NOTE | 2024-07-16 08:50 | PTCARENOTE ---
Rec'd pt at 0700 and NIH check done with off going shift. NIH of 1 mostly because she is sleepy but easily arousable. Pt is HOH. BOTELLO at 2mm. TITUS. Pt does get restless at intervals when she is trying to get comfortable. Asked about having more
Ativan but is already somewhat sleepy and it is not due. Denies pain. Speech is clear. No facial droop noted. Respirs are shallow and tachypnic but overall non-labored on 2l nc with sats of 98%- will however get sl MELENDEZ. BS are in general decreased
throughout. Monitor- Pt with bursts of tachycardia per previous shift and noted to have a burst during Neuro exam earlier but since about 0720 pt has been in AFib with rates in the 150-180 range. ECG done and Dr. Estrada in and updated. Pt is
asymptomatic- no c/o palpatations or chest pain. VS as documented. Per MD order Amiodarone 150 mg bolus hung currently via newly inserted #22 R wrist. Good blood return. After bolus will start infusion. + pulses. No edema. Pts chest continues to be
very ecchymotic-purple in color. Cangrelor infusion continues via R upper arm IV site at 13.5 mls/hr. Abd is soft with + BS. Denies nausea. L carmencita Cochran at 55 cm brijesh is to low intermittent suction. Scant amt of greenish/brown drainage. Placement
ausculated. Pt incont of urine. Genevieve and mouth care given. Repositioned. Purewick in place Speech therapy consulted otherwise pt is NPO> OK given by GI for a few ice chips which pt is tolerating. R radial cath site dressing is D+I. Ecchymosis but no
hematoma present. Good cms checks. Plan of care reviewed with pt. Bilateral soft wrist restraints remain in place as pt does reach up at NG tube despite being told not too. IV team in- will monitor Amiodarone gtt for 24 hrs and then if needs picc
will insert one. Turned and repositioned. Call juarez in reach.
--- NOTE | 2024-07-16 09:05 | PTCARENOTE ---
Amiodarone 150 mg bolus given followed but infusion at 1 mg/min. Currently remains in AFib in the 150's. Artemio Estrada and Miriam in to see pt earlier.
--- NOTE | 2024-07-16 09:25 | PTCARENOTE ---
Pts HR better and appears to have converted back to NSR in the 98-100 range. Amiodarone infusing at 1 mg/min
[2024-07-16 09:43] LABS: NT-proBNP 18000 pg/ml
--- NOTE | 2024-07-16 10:02 | PTOTSP ---
Speech Therapy
Presentation: Patient was oriented and willing to participate. Patient followed commands well. Patient's vocal quality appeared to be weak but intelligible communication. Patient stated her weak vocal quality is new but has improved since admission.
Swallowing Function: Per surgery, patient was cleared to trial thins but not solids. BUSINESS INSIGHT AND ANALYTICS MANAGER performed oral care with suctioning. Oral cavity WNL. BUSINESS INSIGHT AND ANALYTICS MANAGER trialed ice chips, thins per tsp and thins per straw. Patient appeared to tolerated ice chips and
initial trial of thins per tsp as she did not exhibit any overt clinical s/sx of aspiration or difficulty with manipulation/ mastication. Patient demonstrated immediate wet, harsh coughing with thins via straw and secondary tsp. BUSINESS INSIGHT AND ANALYTICS MANAGER used harsh
cough, re-swallow, throat clears, and oral suctioning in hopes to reduce aspiration. Patient's vocal quality returned to normal limits and RR returned to normal limits after increasing to 40 during coughing spell. Given patient's clinical
presentation, recommend NPO with ice chips after oral care and supervision for swallowing maintenance.
Recommendations:
1) NPO
2) Strict aspiration precautions
3) ARHP (ice chips with supervision)
Plan: BUSINESS INSIGHT AND ANALYTICS MANAGER will continue to follow; pending hospitalization.
[2024-07-16] MEDS: FLUSH (NSS) 1 FLUSH IV ×2 (10:29→13:06)
--- NOTE | 2024-07-16 10:45 | PTCARENOTE ---
Dozing unless disturbed. Remains in NSR. Amiodarone at 1 mg.
[2024-07-16] MEDS: KENGREAL 255 MCG IV (11:50)
[2024-07-16 11:57] LABS: Glucose - Point of Care 161 mg/dl (70-99)
--- NOTE | 2024-07-16 12:17 | W.PN.GS2 ---
Addendum entered and electronically signed by Heath Kolb MD 07/16/24 13:28:
Patient seen and examined. Agree with assessment plan as documented below.
No reports of further nausea. No episodes of emesis. Denies any chest or abdominal pain. Afebrile.
Gen: NAD
HEENT: minimal gastric outputs
Abd: soft, NT/ND, non-peritoneal
Patient is a 83F admitted with type III PEH and recurrent nausea and possible component of gastric outlet obstruction
ST elevated UT with troponin elevation -now status post cardiac catheterization with angioplasty/ANGEL LUIS placement on IV Cangrelor
Initial NG tube inadvertently dislodged, developed nausea in the interim and now PPD #1 EGD for placement with noted tortuous esophagus and large hiatal hernia. No evidence of incarceration or torsion
Blood clot seen at apex of duodenal bulb and PPI gtt initiated
Afebrile, rapid afib early this am
H/H stable today s/p transfusion
Plan:
-- Continue NPO and NGT
-- Plan for UGI tomorrow
-- Will need surgical correction with gastropexy this admission if obstructed on UGI imaging, otherwise can tentatively plan surgery at a later date once recovered from recent cardiac insult
-- Until UGI all meds should be IV, following either UGI confirming lack of obstruction or surgical intervention PO meds will be OK at that time
-- Medical management as per primary team
Original Note:
Today's Communication / Plan
-
Continue NGT
Assessment / Plan
-
Assessment : 83F admitted with type III PEH and recurrent nausea and possible component of gastric outlet obstruction
ST elevated UT with troponin elevation -now status post cardiac catheterization with angioplasty/ANGEL LUIS placement on IV Cangrelor
Initial NG tube inadvertently dislodged, developed nausea in the interim and now PPD #1 EGD for placement with noted tortuous esophagus and large hiatal hernia. No evidence of incarceration or torsion
Blood clot seen at apex of duodenal bulb and PPI gtt initiated
Afebrile, rapid afib early this am
H/H stable today s/p transfusion
Plan:
Continue NPO
Continue NGT
Will need UGI imaging to establish relief of gastric obstruction, ideally with NGT still in place. Plan tentatively tomorrow if radiology able to preform.
Will need surgical correction with gastropexy this admission if obstructed on UGI imaging, otherwise can tentatively plan surgery at a later date once recovered from recent cardiac insult
Until UGI all meds should be IV, following either UGI confirming lack of obstruction or surgical intervention PO meds will be OK at that time
Medical management as per primary team
Subjective Data
-
Date of Service: July 16, 2024
Patient seen and examined at bedside with Dr. Kolb. Sleeping but arousable. Denies acute complaints.
Objective Data
-
Intake and Output
07/15/24 07/16/24 07/17/24
06:59 06:59 06:59
Intake Total 2267.0 / 2267.0
Output Total 550 / 550 500 / 500
Balance -550 / -550 1767.0 / 1767.0
Intake:
IV fluids (Total) 2132.0 / 2132.0
Integrilin 45 / 45
Kengreal 67.5 / 67.5
Nss 1,000 ml @ 75 mls/hr IV . 1775 / 1775
[id number] RAMIRO Rx#:[id number]
Nss 250 ml @ 0.75 MCG/KG/MIN 13 94.5 / 94.5
.518 mls/hr IV .[id number] RAMIRO
with Kengreal 50,000 Mcg Rx#:
[id number]
protonix 150 / 150
IV piggybacks 135.0 / 135.0
Output:
Gastrointestinal tube output ( 350 / 350
Total)
Rolette Sump 350 / 350
Urine, Voided 200 / 200 500 / 500
Other:
How many times incontinent 1
SMALL amount urine
How many times incontinent 1
MODERATE amount urine
How many times incontinent 1
SATURATED amount urine
Vital Signs
Temp Pulse Resp BP Pulse Ox
97.6 F 88 21 141/95 98
07/16/24 08:00 07/16/24 10:30 07/16/24 10:30 07/16/24 10:00 07/16/24 10:30
Lab Results
07/16/24 03:10
07/16/24 03:10
Calcium 8.4 mg/dl (8.4-10.2) 07/16/24 03:10
Phosphorus 2.3 mg/dl (2.5-4.5) L 07/15/24 21:34
Magnesium 2.0 mg/dl (1.6-2.3) 07/15/24 21:34
Total Bilirubin 0.9 mg/dl (0.2-1.3) 07/16/24 03:10
AST 51 U/L (14-36) H 07/16/24 03:10
ALT 22 U/L (0-35) 07/16/24 03:10
Alkaline Phosphatase 75 U/L (38-126) 07/16/24 03:10
Total Protein 5.4 g/dl (6.3-8.2) L 07/16/24 03:10
Albumin 3.2 g/dl (3.5-5.0) L 07/16/24 03:10
Physical Exam
-
NAD, sleeping but arousable
Abdomen soft nondistended and no tenderness
NGT with small amounts of bilious outputs
--- NOTE | 2024-07-16 13:00 | PTCARENOTE ---
Dozing most of morning. States she is just trying to catch up on sleep. Will easily arouse to verbal stimuli. Denies pain. VS as documented. Remains in NSR. Speech therapy in earlier and recommended NPO, aspiration precautions and the Hydration
protocol. Given few ice chips and tolerating other aaron NPO. Pt denies nausea. Denies need to void. Had been incont at change on shift of a small to mod amt of urine but nothing since. Bladder scanned for 179ml's. Skin and mouth care given.
Repositioned. Family at the bedside and updated.
--- NOTE | 2024-07-16 14:57 | W.PN.HOSP.TC ---
Addendum entered and electronically signed by Edson Woodson MD 07/16/24 15:25:
Klebsiella UTI
-Continue cefepime and f/u sensitivities
Original Note:
Today's Communication/Plan
-
Assessment / Plan
Assessment / Plan
CAD
-S/p PCI
-Continue cangrelor IV, eventually transition to po plavix
-Continue aspirin rectal, eventually trnaition to po
�IV Lopressor
-Cardiac rehab
-Monitor on telemetry
Paraesophageal hernia/gastric outlet obstruction
-S/p EGD, Large hiatal hernia, Blood clot in the duodenal bulb.
--W/o evidence of GOO, GI believe discomfort was related to Chest discomfort
-NGT to suction
-HOLD NSAID's
-Continue PPI
?UpperGI bleed
-Blood clot in the duodenal bulb
-Will need to monitor hgb
-Continue PPI
-GI following
-Will need to monitor
-Avoid NSAID's
AFib RVR
-Started on Amio Gtt
-Conitnue tele monitoring
-AC held
Toxic metabolic encephalopathy
-Neurology following reason
-Head CT no acute intracranial
Hypertension
-As needed IV agents as needed as strict n.p.o.
-Could even consider IV JAMILAH inhibitor as renal function is stable or IV hydralazine
-Otherwise continue IV metoprolol for
Anxiety
-Hold sertraline
-As needed Ativan
Hyperlipidemia
-Hold Lipitor
Anticipated Discharge: > 48 hours
Subjective/Interval History
-
Date of Service: July 16, 2024
seen an dexamined
this am in afib rvr
started on amio gtt
ngt placed
Objective Data
-
Labs:
Laboratory Results
07/16/24
03:10
WBC 16.0 H
Hgb 11.8 L
Hct 35.7 L
Plt Count 331
Sodium 135
Potassium 3.9
Chloride 105
Carbon Dioxide 22
BUN 24 H
Creatinine 0.6
Glucose 155 H
Calcium 8.4
Total Bilirubin 0.9
AST 51 H
ALT 22
Alkaline Phosphatase 75
Vital Signs:
Vital Signs
Temp Pulse Resp BP Pulse Ox
98.5 F 91 21 139/82 98
07/16/24 12:00 07/16/24 13:01 07/16/24 10:30 07/16/24 13:01 07/16/24 10:30
I&O
07/15/24 07/16/24 07/17/24
06:59 06:59 06:59
Intake Total 2267.0 / 2365.5 790.9 / 790.9
Output Total 550 / 550 500 / 500
Balance -550 / -550 1767.0 / 1865.5 790.9 / 790.9
Physical Exam
-
General: No Apparent Distress and Other (NGT to suction)
HEENT: Normocephalic and Atraumatic
Respiratory: Clear to Auscultation and Wheezes
Cardiac: Regular Rhythm and S1/S2
GI: Soft, Nontender and Distended
Skin: Warm
--- NOTE | 2024-07-16 15:52 | CM ---
Patient now in ICU. Discharge uncertain pending medical work up and functional status. CM will continue to follow for discharge planning needs.
Plan; SNF vs acute rehab pending functional assessment
--- NOTE | 2024-07-16 16:30 | PTCARENOTE ---
Remains resting- mostly dozing but awakens to verbal stimuli. Denies pain. Respirs are shallow but non-labored. BS are decreased at the bases. Monitor SR. Amiodarone decreased to 0.5 mg/min at 1500. R wrist site wnl. Cangrelor continues to infuse
via R upper arm. VS as documented. Abd is round and soft with + BS. NG draining small amt bile colored green/brown secretions. Denies need to void. Bladder scanned for 293 mls. Turned and repositioned. Asks frequently for ice chips. Taking few ice
chips without difficulty. Skin care given. Purewick replaced to measure if pt voids. Call juarez in reach.
[2024-07-16] MEDS: LIPITOR PO (17:45)
--- NOTE | 2024-07-16 17:52 | PTCARENOTE ---
3RD PIV SITE ESTABLISHED THIS AM FOR PT, RN REQUEST. PICC ORDER ON HOLD, ADEQUATE IV ACCESS. IF AMIO CONTINUES GREATER THAN 24H PRIMARY RN WILL CONT TO ASSESS FOR NEED AND WILL ALERT VAT
[2024-07-16] MEDS: FLUSH (NSS) 2 FLUSH IV (18:08)
[2024-07-16] MEDS: LOVENOX 40 MG SC (18:09)
[2024-07-16 18:30] LABS: Glucose - Point of Care 164 mg/dl (70-99)
--- NOTE | 2024-07-16 18:30 | PTCARENOTE ---
Asking frequently for ice. Instructed pt that staff cannot give her unlimited amts of ice- but know that her throat is dry. Reminded again that she will not be allowed ice after MN for study in am. No other changes
--- NOTE | 2024-07-16 20:00 | PTCARENOTE ---
Received patient at 1900. Pt. currently in bed. Awake, alert, and oriented. NIHSS has been 0-1. Denies pain/discomfort. C/o anxiety, PRN ativan on board, see MAR. Afebrile. Heart rhythm currently sinus, amiodarone gtt infusing. Currently on 2L nasal
cannula. Lungs sound diminished. Pt. allowed to have ice chips at the moment, NPO after midnight. NG tube in L nare to low intermittent suction. Incontinent of urine, pure wick drainage device in place. Skin as documented. Discussed plan of care
with patient. Vital signs stable at this time.
[2024-07-16 23:29] LABS: Glucose - Point of Care 138 mg/dl (70-99)
[2024-07-17] VITALS (27 sets, daily range): BP systolic 102–159; BP diastolic 63–103; BMI 30.3
--- NOTE | 2024-07-17 00:05 | PTCARENOTE ---
Pt. assessment unchanged. Pt. is now NPO. Amiodarone gtt and Kengreal gtt infusing. Pt. appears comfortable, no complaints of pain/discomfort. Vital signs stable at this time.
[2024-07-17] MEDS: STERILE WATER FOR INJECTION 10 ML IV ×3 (02:17→17:46)
[2024-07-17] MEDS: MAXIPIME 1000 MG IV ×3 (02:17→17:46)
[2024-07-17 03:32] LABS: Hematocrit 32.9 % (37.0-47.0); Hemoglobin 10.5 g/dL (12.0-16.0); Mean Corp Hgb Conc. 31.9 g/dL (33.0-37.0); Mean Corpuscular Hgb 29.7 pg (27.0-31.0); Mean Corpuscular Volume 92.9 fL (81.0-99.0); Platelet Count 283 10^3/uL (130-400); Red Blood Cell Count 3.54 10^6/uL (4.20-5.40); Red Cell Dist. Width 13.2 % (11.5-14.5); White Blood Cell Count 12.8 10^3/uL (4.8-10.8)
[2024-07-17 03:52] LABS: ALT (SGPT) 19 U/L (0-35); AST (SGOT) 31 U/L (14-36); Albumin 2.8 g/dl (3.5-5.0); Alkaline Phosphatase 61 U/L (38-126); Blood Urea Nitrogen 25 mg/dl (7-17); Calcium 8.1 mg/dl (8.4-10.2); Carbon Dioxide 21 mmol/L (22-30); Chloride 108 mmol/L (98-107); Estimated Creatinine Clearance 55 ml/min; Glucose 148 mg/dl (70-99); Phosphorus 2.3 mg/dl (2.5-4.5); Potassium 3.3 mmol/L (3.5-5.1); Sodium 136 mmol/L (135-145); Total Bilirubin 0.8 mg/dl (0.2-1.3); eGFR > 60.00
--- NOTE | 2024-07-17 04:00 | PTCARENOTE ---
Pt. assessment remains unchanged. AM labs drawn. Vital signs stable at this time.
[2024-07-17] MEDS: NSS 1000 IV (04:40)
[2024-07-17] MEDS: ATIVAN 0.25 MG IV ×2 (04:40→21:37)
[2024-07-17] MEDS: KCL 270 MEQ IV (04:58)
[2024-07-17 05:18] LABS: Glucose - Point of Care 146 mg/dl (70-99)
[2024-07-17] MEDS: NOVOLOG FLEXPEN-MODERATE RESISTANCE SC (05:50)
[2024-07-17] MEDS: PROTONIX 100 IV (05:52)
[2024-07-17] MEDS: KENGREAL 255 MCG IV (05:52)
[2024-07-17] MEDS: LOPRESSOR 7.5 MG IV ×2 (05:53→12:16)
[2024-07-17] MEDS: ASPIRIN 300 MG RECTAL (07:44)
[2024-07-17 08:06] LABS: Glucose - Point of Care 167 mg/dl (70-99)
--- NOTE | 2024-07-17 08:09 | W.PN.GI.CBS2 ---
Today's Communication / Plan
-
Please see assessment and plan for details.
Assessment / Plan
-
1. Chest pain: Was likely more cardiac in nature, especially given EGD findings without any significant torsion or other significant gastric pathology. There was a small clot noted in the duodenum, the no active bleeding, has minimal bilious
output from NG tube today and hemoglobin has remained essentially stable. Await upper GI as ordered by surgery today, if no obstruction which does seem less likely given bilious output, then okay from IM to DC NG tube, start clear liquids, change
medications to p.o.
2. Duodenal clot: Unable to be irrigated, though not sure if this was related to ulcer or possibly NG tube trauma. Her hemoglobin has drifted down though has bilious output from her NG tube, and has overall tolerated dual antiplatelet therapy.
Would continue PPI twice daily for now, no GI contraindications to antiplatelet or anticoagulation if indicated.
Subjective
Subjective
Date of Service: July 17, 2024
Patient with more wheezes this morning, though overall is feeling okay, original symptoms have resolved, no further epigastric pain or nausea. Her NG tube is put out small amount of bilious material. No bowel movements overnight.
Objective
Data Reviewed
Laboratory Data:
Laboratory Results
07/17/24 03:18
07/17/24 03:18
Laboratory Results
PT 14.0 Sec (11.4-14.6) 07/14/24 19:48
INR 1.03 07/14/24 19:48
APTT 59.3 Sec (23.4-35.0) H 07/14/24 19:48
Phosphorus 2.3 mg/dl (2.5-4.5) L 07/17/24 03:18
Magnesium 2.0 mg/dl (1.6-2.3) 07/17/24 03:18
Total Bilirubin 0.8 mg/dl (0.2-1.3) 07/17/24 03:18
AST 31 U/L (14-36) 07/17/24 03:18
ALT 19 U/L (0-35) 07/17/24 03:18
Alkaline Phosphatase 61 U/L (38-126) 07/17/24 03:18
Lipase 119 U/L (23-300) 07/12/24 01:34
Vital Signs and I&O:
Vital Signs
Temp Pulse Resp BP Pulse Ox
98.5 F 96 29 129/70 96
07/17/24 07:00 07/17/24 04:00 07/17/24 04:00 07/17/24 05:53 07/17/24 04:00
I&O
07/16/24 07/17/24 07/18/24
06:59 06:59 06:59
Intake Total 2267.0 / 2365.5 2782.5 / 2782.5
Output Total 500 / 500 500 / 500
Balance 1767.0 / 1865.5 2282.5 / 2282.5
Physical Exam
Physical Exam
General: NAD
Abdomen: normal bowel sounds, soft, no tenderness, no masses or bruits, no ascites
--- NOTE | 2024-07-17 08:27 | W.PN.INTV ---
Today's Communication / Plan
Recommendations
UGI series without obstruction --> start clear liquid diet and ADAT
Change rectal aspirin to ASA through NGT
Stop cangrelor and start Plavix
Start statin and trend LFTs
Eventually will need to start heparin drip versus Eliquis given her A-fib
Rate control with goal HR <110
Continue amiodarone drip, defer TRX to PO amio to cardiology
Pain control
Maintain BG 140�180 with ISS q6hr
Continue ABx --> TRX to ancef tomorrow AM
Can likely be downgraded to tele tomorrow if she remains stable
Assessment
-
83yo F with PMH GERD/hiatal hernia, HTN, DM-II who presented to ED 07/12/24 for nausea, vomiting, and chest/back pain which was worsening over 1-2 weeks prior to admission. Initial workup on admission: EKG normal sinus rhythm, troponin negative x2,
CTA no evidence of thoracic aortic aneurysm or dissection, +moderate coronary artery calcification, +large hiatal hernia. She has a known history of hiatal hernia and had a previous EGD on 10/22/[address] Mixon which revealed tortuous esophagus with
possible varices, erythematous mucosa in antrum, and large hiatal hernia with gastric rotation. In ED this admission, NGT unable to be placed initially; NGT placed by GI and surgery on 07/13 but patient subsequently removed. Plan was for NG
decompression and possible upper GI series; however on 07/14 patient had episode of syncope accompanied by EKG changes and positive troponin, for which she underwent cardiac catheterization and PCI. During procedure, she went into torsades de
pointes with spontaneous resolution. Later in day on 07/14 patient had a rapid response called for AMS, for which neurology was consulted. Her head CT was negative for acute stroke, and her head/neck CTA showed patent igiugig of mohan and cerebral
artery blood flow (only occlusion was right vertebral artery at V3 segment). Cardiology, GI, general surgery, neurology are following. Given that patient is NPO and may require procedure for hiatal hernia, patient anticoagulation was changed to IV
cangrelor and she moved to ICU for monitoring while using new medication.
Impression:
#NSTEMI s/p IVUS-guided PCI of proximal and mid LAD with ANGEL LUIS x2 placed complicated by torsades de pointes
#Blood clot seen in duodenal bulb possibly related to multiple failed attempts of NGT placement
#AMS � likely related to anesthesia but TIA/CVA still in differential (although unlikely given negative CT head x2)
#UTI with UCx growing K. pneumonia (R to amp + unasyn; Intermediate to macrobid)
#Nausea/vomiting (vomiting now resolved) with suspected GOO
#Acute decompensated heart failure with elevated proBNP of 18,000 (07/16/2024)
#Atrial fibrillation currently in NSR now on amiodarone drip
#Large hiatal hernia likely contributing to gastric outlet obstruction
#Leukocytosis
#Hyponatremia - now resolved
#Elevated troponin - initially due to ACS and now elevated due to s/p cardiac cath with PCI/ANGEL LUIS (troponin peaked at 7.62 on 07/15/2024)
#History of autoimmune hepatitis
#History of esophageal varices
Plan:
- Pt was started on cangrelor on 07/15 in setting of recent stent x2 to LAD on 07/14/2024 as Integrilin was turned off given that it had been on for >24-hours
- She is s/p EGD on 07/15/2024 which found a tortuous esophagus with a large hiatal hernia, with blood clot seen in the duodenal bulb, and an 18 Romansh nasogastric tube was placed under endoscopic guidance
- Cardiology following and recs appreciated
- Continue ASA --> upper GI series performed today showing no evidence of obstruction, with a 9 cm hiatal hernia with atlantoaxial volvulus and mild prominence of the gastric rugae suggesting possible gastritis --> conversation held between GI,
cardiology and surgery, and given that no obstruction seen on UGIS, patient can have her NGT removed, we can stop cangrelor and transition to Plavix, and eventually if she is tolerating Plavix + aspirin with no signs of bleeding, then the ultimate
goal will be to stop aspirin, continue plavix and transition her to Eliquis
- Start high intensity statin and ntrend LFTs
- Change her IV Lopressor 7.5mg q6hr to metoprolol tartate 25mg BID with holding parameters
- Replete K>4, Mg>2
- Maintain MAP>65
- Maintain SpO2 >94% with supplemental oxygen and titrate down as tolerated
- Troponin peaked at 7.62 on 07/15/2024 � no longer need to continue trending
- Continue IV amiodarone (currently in NSR); defer starting PO amiodarone to cardiology
- Since UGI series showed no evidence of obstruction, start clear liquid diet and ADAT
- GI consulted and recs appreciated
- General surgery consulted and recs appreciated
- PPI 40mg IV BID --> defer to GI when we can change from IV to PO (of note, she takes omemprazole 20mg daily at home)
- Continue aspiration precautions
- Continue cefepime (started on 07/13)
- Would give total of 6 days ABx
- If she remains stable then would narrow ABx to ancef by tomorrow
- Continue neurochecks and NIHSS q shift
- Neurology consulted and recs appreciated
- Repeat CT head on 07/15/2024 evening showed no acute intracranial pathology
- Stop IVF with NS 0.9% given that she is now on clear liquid diet; continue trending sNa with goal 135-145
- Now on IV lasix 40mg daily per cardiology given that her proBNP is 18,000 (07/16/2024)
- Maintain euglycemia with goal BG 140-180mg/dL; continue ISS
- DVT ppx: LMWH
- Code status:�DNR/DNI
If patient remains stable by tomorrow with no signs of bleeding on Plavix + ASA, then she can be downgraded to telemetry at that time. [employer]gronomy [employer] services will continue to follow along until she is downgraded.
Data:
Head CT 07/14/2024:
Stable mild chronic findings. No acute intracranial hemorrhage. No evidence to suggest acute large vascular territory transcortical infarct at this time.
Head CT 07/15/2024:
There are no acute intracranial abnormalities. There is moderate diffuse cortical atrophy with mild nonspecific white matter changes
Head/neck CTA 07/14/24:
No igiugig of Mohan region aneurysm or stenosis.
No cerebral artery significant plaque, stenosis, thrombus, or occlusion.
The cervical carotid and vertebral arteries are patent without significant plaque, stenosis, occlusion, or dissection. 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
The right vertebral artery is occluded at the V3 segment, with lack of intraluminal contrast opacification beyond the proximal intradural component at the posterior margin of the occipital condyle. The left intradural vertebral artery is dominant
and patent.
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 Bilateral patent posterior communicating arteries.
Degree of stenosis based on NASCET criteria.
Chest CTA 07/12/24:
1. No evidence of thoracic aortic aneurysm or dissection. No pulmonary embolism.
2. Moderate coronary arterial calcification. Please correlate with symptoms of and risk factors for coronary artery disease, with further workup as clinically appropriate.
3. Large hiatal hernia, without evidence of incarceration.
UGI Series 07/17/2024:
There is no obstruction
There is 9 cm hiatal hernia with atlantoaxial volvulus
There is mild prominence of the gastric rugae suggesting possible gastritis
Total time spent today was 38 minutes for this encounter. Time includes reviewing laboratory test/imaging results, reviewing pertinent medical records, obtaining and reviewing medical history, performing an appropriate exam, ordering medications,
tests and procedures. Time also includes documentation of this encounter, coordinating patient care and communicating with other healthcare professionals. Total time does not include separately billed tests performed on this date of service.
Subjective Dataa
Subjective Data
Date of Service:
Date of Service: July 17, 2024
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
Subjective:
Patient seen this morning. She really wants some water to drink. Denies abdominal pain, shortness of breath, fevers or chills. Currently on amiodarone at 0.5 mg/min. NGT currently on low intermittent wall suction. Heart rate currently 101 and
she is in NSR, saturating 98% on 2 L/min, BP 150/103. She feels very fatigued and is in bad spirits this morning.
Review of Systems
General: Other (Negative unless mentioned above)
Objective Data
Data Reviewed
Vital Signs / I&O / Oxygen:
Vital Signs
Temp Pulse Resp BP Pulse Ox
98.5 F 98 29 138/81 96
07/17/24 07:00 07/17/24 08:59 07/17/24 04:00 07/17/24 08:59 07/17/24 04:00
Intake and Output
07/16/24 07/17/24 07/18/24
06:59 06:59 06:59
Intake Total 2267.0 / 2365.5 2850.0 / 2957.7 306.4 / 306.4
Output Total 500 / 500 500 / 500 100 / 100
Balance 1767.0 / 1865.5 2350.0 / 2457.7 206.4 / 206.4
SaO2 96
Nasal Cannula flow liters per 2
minute
Physical Exam
General: Respiratory Distress (negative), Chills (negative), Sweats (negative) and Other (Feels generally uncomfortable)
HEENT: Normocephalic, Anicteric and Moist Mucous Membranes
Cardiovascular: S1-S2, Regular Rhythm, Rub (negative) and Peripheral Edema (negative)
Respiratory: Wheeze (negative), Rhonchi (negative), Non-Labored Respirations, Stridor (negative) and Other (Coarse breath sounds bilaterally)
GI: Soft, Non Distended, Non Tender and Normal Bowel Sounds
Neurology: Awake, Alert and Tremors (negative)
Skin: Warm, Dry, Cyanosis (negative) and Jaundice (negative)
Labs/Micro/Reports
Lab Data
07/17/24 03:18
07/17/24 03:18
Microbiology
07/12/24 15:07 Urine Urine Culture - Final
Klebsiella pneumoniae
--- NOTE | 2024-07-17 08:31 | W.PN.CARDCBS ---
Today's Communication / Plan
-
Hold IV fluids and start IV Lasix 40 mg IV daily.
Continue cangrelor and rectal aspirin for now.
For upper GI today. Hopefully can start oral medication over the next 24 hours including Plavix and oral amiodarone.
Continue IV amiodarone for now. She remains in sinus rhythm. Would hold off on full anticoagulation.
Hemoglobin down to 10.5.
Impression / Plan
-
Primary Director Of Physical Security: none
Assessment:
Presentation 07/12/2024 with N/V, chest and back pain
Large paraesophageal hernia
Concern for syncope on commode 07/14/24
NSTEMI 07/14/2024
s/p LAD ANGEL LUIS x 2 overlapping stents (prox [employer] Олег [place] 2.25 x 26 ANGEL LUIS, mid LAD [employer] Олег [place] 2.0 x 18 ANGEL LIUS)
Sinus tachycardia
Hyponatremia
HTN
HLD
GERD/hiatal hernia
Anxiety
Diabetes
History of esophageal varices
Cardiac catheterization 07/14/2024: LM: Patent. LAD proximal 70% with additional proximal 70 to 80% hazy stenosis/thrombosis, mid 70%, (status post emergent prox [employer] Олег [place] 2.25 x 26 ANGEL LUIS, mid LAD [employer] [place] 2.0 x 18 ANGEL LUIS) .
Diagonal 70% ostial and 70% proximal. Circumflex: Patent. RCA: LI
Echo 07/14/2024: EF 45% with mild concentric LVH. Moderately reduced LV systolic function with anteroseptal and apical hypokinesis. Moderately enlarged LA. Mild MR, mild AAS with peak/mean gradient 12/8 mmHg. Mild to moderate TR, moderate
pulmonary hypertension with PAP 47 mmHg
Stress echo 10/2017: low risk stress test
Plan:
-GI placed NG tube with EGD. No evidence of incarceration or torsion. There was a blood clot seen at the apex of the duodenal bulb. Patient was placed on Protonix drip.
-She remains on cangrelor. Plan from surgery is Upper GI. If she is not obstructed then plan will be to initiate diet and cardiac meds.. Will continue cangrelor for now. If she is obstructed she may need surgery on Thursday. Continue rectal
aspirin for now. Hopefully we can start oral Plavix today.
-Her weight is up significantly. Will start Lasix 40 mg IV daily. Hold IV fluids.
-After syncopal event 07/14/2024 patient found to have abnormal EKG which showed possible anterolateral ST elevation and trop elevated at 3 (trops negative x2 on admission). Prompting patient to undergo cardiac catheterization which demonstrated
multiple LAD lesions with concern for thrombosis for which patient underwent proximal LAD ANGEL LUIS. Procedure was complicated by distal dissection requiring additional ANGEL LUIS to mid LAD. Postprocedural angiography showed KATHIE-3 flow through LAD.
-Patient did have self limiting V-fib during procedure
-She is back in sinus rhythm cont IV amiodarone. With duodenal bulb blood clot would hold off on full anticoagulation. Continue aspirin and cangrelor. Will hopefully switch to oral amiodarone soon.
Continue IV Lopressor 7.5 mg IV every 12. Eventual add statin when can take oral meds.
Hemoglobin down to 10.5 Troponin trending down to 5.7. Creatinine normal at 0.6. LFTs improved.
Total cc time 41 minutes with coordination of care with specialists
Progress Note - Director Of Physical Security
Subjective
Date of Service: July 17, 2024
Has some mild shortness of breath.
Objective
Labs:
07/17/24 03:18
07/17/24 03:18
Labs
Hgb 10.5 g/dL (12.0-16.0) L 07/17/24 03:18
Hct 32.9 % (37.0-47.0) L 07/17/24 03:18
Plt Count 283 10^3/uL (130-400) 07/17/24 03:18
PT 14.0 Sec (11.4-14.6) 07/14/24 19:48
INR 1.03 07/14/24 19:48
APTT 59.3 Sec (23.4-35.0) H 07/14/24 19:48
Sodium 136 mmol/L (135-145) 07/17/24 03:18
Potassium 3.3 mmol/L (3.5-5.1) L 07/17/24 03:18
BUN 25 mg/dl (7-17) H 07/17/24 03:18
Creatinine 0.6 mg/dL (0.6-1.0) 07/17/24 03:18
Glucose 148 mg/dl (70-99) H 07/17/24 03:18
Troponins
07/14/24 07/14/24 07/14/24
10:45 12:01 19:48
Troponin I 3.430 H* 3.820 H* 6.200 H* D
07/15/24 07/15/24 07/16/24
13:00 21:34 03:10
Troponin I 7.100 H* 7.620 H* 5.720 H*
Vital Signs and I&O:
Vital Signs
Temp Pulse Resp BP Pulse Ox
98.5 F 96 29 129/70 96
07/17/24 07:00 07/17/24 04:00 07/17/24 04:00 07/17/24 05:53 07/17/24 04:00
Vital Signs
Temp Pulse Resp BP Pulse Ox
98.5 F 96 29 129/70 96
07/17/24 07:00 07/17/24 04:00 07/17/24 04:00 07/17/24 05:53 07/17/24 04:00
Intake & Output
07/15/24 07/16/24 07/17/24 07/18/24
06:59 06:59 06:59 06:59
Intake Total 2267.0 / 2365.5 2782.5 / 2782.5
Output Total 550 / 550 500 / 500 500 / 500
Balance -550 / -550 1767.0 / 1865.5 2282.5 / 2282.5
Physical Exam
Physical Exam
GEN: No distress, awake,
HEENT: supple, anicteric, mmm, ng
LUNGS: Decreased breath sounds at bases
CV: Reg, S1/S2, 1/6 syst LSB, S3+
ABD: soft, BS+, NT/ND
EXT: No edema
NEURO: Gross non-focal
SKIN: No rash
[2024-07-17] MEDS: NSS (PRESERVATIVE FREE) 10 ML IV ×2 (08:59→19:55)
[2024-07-17] MEDS: LASIX 40 MG IV (08:59)
[2024-07-17] MEDS: PROTONIX IV 40 MG IV ×2 (08:59→19:55)
[2024-07-17] MEDS: KCL 50 IV (09:02)
[2024-07-17] MEDS: FLUSH (NSS) 2 FLUSH IV (09:02)
--- NOTE | 2024-07-17 09:15 | PTCARENOTE ---
Rec'd pt at 0700 awake resting in bed. Rang multiple times during shift change for ice chips- reminded frequently about having an xray test today and she cannot have anything until after the test. Did verbalize understanding. Asked about having more
Ativan- not due yet. Rec'd pt in soft wrist restraints. Pt has been oriented and has not tried to pull out NG tube. Will try without restraints as they are making her more frustrated. NIH is a 0 this am. Speech is clear. Denies headache or dizziness
but admits overall she doesn't feel great- at one point asked me if she was going to . TITUS but in general is weak. Skin is pale and warm. Ecchymosis persists over chest and L breast. Denies chest pain or discomfort. Respirs - pt is more winded
this am. Audible exp wheezing. Dypsnic at rest and with exertion. Admits to feeling winded. Dr. Estrada in and per MD order. Lasix 20 mg IV given at 0905. Respirs are decreased with exp wheezing, few crackles at the bases. Sats on 2l care 95%.
Monitor SR. + pulses. Tr to +1 L upper extrem edema. VS as documented. Remains on Cangrelor infusion via R upper arm IV site at 13.5 ml/hr. R wrist IV Amiodarone site leaking- int removed and IV team in and placed #24 protective via the R hand and
Amio infusing via her R hand currently at 0.5 mg/min. IV fluids NSS at 75 ml/hr dc'd per md order. Currently Protonix gtt dc'd after BID dosing given. KCL 40 meq rider that was intially infusing is completed and 20 meq KCL rider now infusing via L
wrist IV site. If cannot be switched to po Amiodarone today IV team aware PICC will need to be placed. Abd is round and soft with + BS. L nare [place] NG to low int suction. Order not to flush. Draining greenish/brown secretions. + ausculation.
Purewick in place for es/yellow urine. Complete CHG bath given. Repositioned. New purewick place. Pt made aware of plan of care and call juarez in reach.
--- NOTE | 2024-07-17 10:36 | W.PN.GS2 ---
Addendum entered and electronically signed by Heath Kolb MD 07/17/24 12:37:
Patient seen and examined. Agree with assessment plan as documented below.
Feels tired and rundown. Denies any chest or abdominal pain. No nausea or vomiting. No reports of flatus or BM.
Gen: NAD
HEENT: some bilious effluent
Abd: soft, NT/ND, non-peritoneal
Patient is a 83F admitted with type III PEH and recurrent nausea and possible component of gastric outlet obstruction
ST elevated KS with troponin elevation -now status post cardiac catheterization with angioplasty/ANGEL LUIS placement on IV Cangrelor
Initial NG tube inadvertently dislodged, developed nausea in the interim and now PPD #2 EGD for placement with noted tortuous esophagus and large hiatal hernia. No evidence of incarceration or torsion
Blood clot seen at apex of duodenal bulb and PPI gtt initiated
Afebrile, rapid afib early this am
H/H with down trend but stable
Plan:
-- UGI today
-- NPO, NGT until above
-- Until UGI all meds should be IV, following either UGI confirming lack of obstruction or surgical intervention PO meds will be OK at that time
-- Pending UGI findings, may be able to remove NGT and trial on clears/Po meds later today vs surgical correction with gastropexy this admission if obstructed.
-- If not actively obstructed can tentatively plan surgery at a later date once recovered from recent cardiac insult
-- Medical management as per Cardiology
Original Note:
Today's Communication / Plan
-
UGI study
Assessment / Plan
-
Assessment : 83F admitted with type III PEH and recurrent nausea and possible component of gastric outlet obstruction
ST elevated KS with troponin elevation -now status post cardiac catheterization with angioplasty/ANGEL LUIS placement on IV Cangrelor
Initial NG tube inadvertently dislodged, developed nausea in the interim and now PPD #2 EGD for placement with noted tortuous esophagus and large hiatal hernia. No evidence of incarceration or torsion
Blood clot seen at apex of duodenal bulb and PPI gtt initiated
Afebrile, rapid afib early this am
H/H with down trend but stable
Plan:
Continue NPO
Will need UGI imaging to establish relief of gastric obstruction. Planned later today in radiology.
Until UGI all meds should be IV, following either UGI confirming lack of obstruction or surgical intervention PO meds will be OK at that time
Pending UGI findings, may be able to remove NGT and trial on clears/Po meds later today vs surgical correction with gastropexy this admission if obstructed.
If not actively obstructed can tentatively plan surgery at a later date once recovered from recent cardiac insult
Medical management as per cardiology
Subjective Data
-
Date of Service: July 17, 2024
Patient seen and examined at bedside with Dr. Kolb. Denies n/v. Denies abdominal pain. More awake and conversive today. Passing flatus. Thirsty.
Objective Data
-
Intake and Output
07/16/24 07/17/24 07/18/24
06:59 06:59 06:59
Intake Total 2267.0 / 2365.5 2850.0 / 2957.7 306.4 / 306.4
Output Total 500 / 500 500 / 500 100 / 100
Balance 1767.0 / 1865.5 2350.0 / 2457.7 206.4 / 206.4
Intake:
IV fluids (Total) 2132.0 / 2230.5 2750.0 / 2857.7 306.4 / 306.4
Amiodarone 417.0 / 433.7 33.4 / 33.4
Integrilin 45 / 45
KCL rider 67.5 / 135.0 202.5 / 202.5
Kengreal 67.5 / 67.5
Nss 1,000 ml @ 75 mls/hr IV . 1775 / 1850 1725 / 1725 0 / 0
[id number] RAMIRO Rx#:[id number]
Nss 250 ml @ 0.75 MCG/KG/MIN 13 94.5 / 108.0 310.5 / 324.0 40.5 / 40.5
.518 mls/hr IV .[id number] [facility]
with Kengreal 50,000 Mcg Rx#:
[id number]
protonix 150 / 160 230 / 240 30 / 30
IV piggybacks 135.0 / 135.0 100 / 100
Output:
Gastrointestinal tube output ( 100 / 100
Total)
[place] Sump 100 / 100
Urine, Voided 500 / 500 400 / 400 100 / 100
Other:
Number of approximated MODERATE 1
amounts of urine
How many times incontinent 1
SMALL amount urine
How many times incontinent 1 1
MODERATE amount urine
How many times incontinent 1
SATURATED amount urine
Vital Signs
Temp Pulse Resp BP Pulse Ox
98.5 F 98 32 138/81 95
07/17/24 07:00 07/17/24 08:59 07/17/24 08:00 07/17/24 08:59 07/17/24 08:00
Lab Results
07/17/24 03:18
07/17/24 03:18
Calcium 8.1 mg/dl (8.4-10.2) L 07/17/24 03:18
Phosphorus 2.3 mg/dl (2.5-4.5) L 07/17/24 03:18
Magnesium 2.0 mg/dl (1.6-2.3) 07/17/24 03:18
Total Bilirubin 0.8 mg/dl (0.2-1.3) 07/17/24 03:18
AST 31 U/L (14-36) 07/17/24 03:18
ALT 19 U/L (0-35) 07/17/24 03:18
Alkaline Phosphatase 61 U/L (38-126) 07/17/24 03:18
Total Protein 5.0 g/dl (6.3-8.2) L 07/17/24 03:18
Albumin 2.8 g/dl (3.5-5.0) L 07/17/24 03:18
Physical Exam
-
NAD, Ox3, awake and alert
Abdomen soft nondistended and no tenderness
NGT with low volume dark gastric outputs
[2024-07-17] MEDS: NSS (PRESERVATIVE FREE) IV (10:50)
[2024-07-17] MEDS: FLUSH (NSS) 1 FLUSH IV ×2 (10:52→12:16)
--- NOTE | 2024-07-17 11:00 | SUR.OPER ---
Pt still frequenty rings for ice or swabs. Reminded she cannot have them. Mouth care completed via oral care kit as pt had whitish mucous in her mouth. Diuresing well from Lasix - so far has put 900 mls out. Repositioned. KCL 20 meq kcl rider
completed. L wrist int flushed. Pt did admit both hands hurt her. R hand Amiodarone IV site still with excellent blood return.. Dr. Weber in to see pt
[2024-07-17 12:04] LABS: Glucose - Point of Care 163 mg/dl (70-99)
[2024-07-17] MEDS: CORDARONE 518 MG IV (12:17)
[2024-07-17] MEDS: NOVOLOG FLEXPEN-MODERATE RESISTANCE 1 UNITS SC (12:17)
--- NOTE | 2024-07-17 12:30 | PTCARENOTE ---
Taken via bed for UGI series. No other changes. Continues to diurese from Lasix. Constantly just asking for ice
--- NOTE | 2024-07-17 13:17 | W.PN.HOSP.TC ---
Today's Communication/Plan
-
Assessment / Plan
Assessment / Plan
CAD
-S/p PCI
-Continue cangrelor IV, eventually transition to po plavix
-Continue aspirin rectal, eventually trnaition to po
�IV Lopressor
-Cardiac rehab
-Monitor on telemetry
Paraesophageal hernia/gastric outlet obstruction
-S/p EGD, Large hiatal hernia, Blood clot in the duodenal bulb.
--W/o evidence of GOO, GI believe discomfort was related to Chest discomfort
-NGT to suction
-HOLD NSAID's
-Continue PPI
-For UGI study today
--If no obstruction then plan to transition from IV to PO and follow surgical recs
--If obstruction present then continue all agents IV, NGT and follow surgicla recs as OR intervention is needed
?UpperGI bleed
-Blood clot in the duodenal bulb
-Will need to monitor hgb
-Continue PPI
-GI following
-Will need to monitor
-Avoid NSAID's
Klebsiella UTI
-Continue cefepime and f/u sensitivities
AFib RVR, back in SR
-Started on Amio Gtt
-Conitnue tele monitoring
-AC held
Toxic metabolic encephalopathy
-Neurology following reason
-Head CT no acute intracranial
Hypertension
-As needed IV agents as needed as strict n.p.o.
-Could even consider IV JAMILAH inhibitor as renal function is stable or IV hydralazine
-Otherwise continue IV metoprolol for
Anxiety
-Hold sertraline
-As needed Ativan
Hyperlipidemia
-Hold Lipitor
Anticipated Discharge: > 48 hours
Subjective/Interval History
-
Date of Service: July 17, 2024
seen and exmained
no new complaints
no acute ovenirght events
Objective Data
-
Labs:
Laboratory Results
07/17/24
03:18
WBC 12.8 H
Hgb 10.5 L
Hct 32.9 L
Plt Count 283
Sodium 136
Potassium 3.3 L
Chloride 108 H
Carbon Dioxide 21 L
BUN 25 H
Creatinine 0.6
Glucose 148 H
Calcium 8.1 L
Total Bilirubin 0.8
AST 31
ALT 19
Alkaline Phosphatase 61
Vital Signs:
Vital Signs
Temp Pulse Resp BP Pulse Ox
97.6 F 103 25 122/80 99
07/17/24 11:00 07/17/24 12:16 07/17/24 12:00 07/17/24 12:16 07/17/24 12:00
I&O
07/16/24 07/17/24 07/18/24
06:59 06:59 06:59
Intake Total 2267.0 / 2365.5 2850.0 / 2957.7 416.8 / 416.8
Output Total 500 / 500 500 / 500 1000 / 1000
Balance 1767.0 / 1865.5 2350.0 / 2457.7 -583.2 / -583.2
Physical Exam
-
General: Well Developed and Well Nourished
HEENT: Normocephalic
Respiratory: Clear to Auscultation
Cardiac: Regular Rhythm and S1/S2
GI: Soft, Nontender, Nondistended and Normal Bowel Sounds
Neuro: Awake and Alert
--- NOTE | 2024-07-17 13:45 | PTCARENOTE ---
Taken for UGI series per orders. Tolerated well. Was able to swallow a cup of oral contrast. Currently back in her room. Family at the bedside and updated. Genevieve care given and purewick replaced. Pt given several ice chips. Call juarez in reach. Will
update providers.
--- NOTE | 2024-07-17 15:30 | PTCARENOTE ---
Providers notified of UGI results. After OK given by surgery- NG tube dc'd at 1500 and currently pt given some clear liquids. Speech therapy updated prior to giving liquids as they had kept pt NPO yesterday. Today, had pt sitting up, did small
sips. No diffculty noted with swallowing. Did have some wheezing with exertion but no coughing noted. Pt stated the water ice and gingerale tasted so good. Family at the bedside. Will update Cardiology. No other changes.
[2024-07-17] MEDS: PLAVIX 300 MG PO (16:14)
[2024-07-17] MEDS: PACERONE 200 MG PO ×2 (16:14→21:38)
--- NOTE | 2024-07-17 16:15 | PTCARENOTE ---
Cardiology updated and currently 300 mg Plavix given and as well as Amiodarone po. Amiodarone IV infusion stopped and R hand IV site capped. No other changes. Dozing at intervals. Will DC Cangrelor gtt at 1830
[2024-07-17] MEDS: NSS IV (16:45)
[2024-07-17 17:17] LABS: Glucose - Point of Care 213 mg/dl (70-99)
[2024-07-17] MEDS: LOVENOX 40 MG SC (17:45)
[2024-07-17] MEDS: LIPITOR 40 MG PO (17:45)
[2024-07-17] MEDS: NOVOLOG FLEXPEN-MODERATE RESISTANCE 3 UNITS SC (17:48)
--- NOTE | 2024-07-17 18:25 | PTCARENOTE ---
Has been more restful. Breathing overall is improved since earlier Lasix. Still gets winded and has some audible wheezing with exertion but less wheezing at rest than earlier. Respirs overall remain shallow. Sats on 2l are 99%. VS as documented.
Tolerating clear liquids- no difficulty noted with swallowing. Voiding yellow urine. Incont of a small amt of loose dk greenish/brown stool. Genevieve care given. Cangrelor/Kengreal gtt dc'd per orders. C/O her arms hurting her- mostly her R arm is
tender. Repositioned. Call juarez in reach.
[2024-07-17] MEDS: LOPRESSOR 25 MG TUBE (19:55)
--- NOTE | 2024-07-17 20:00 | PTCARENOTE ---
rec'd pt resting in bed, oriented, cooperative, follows commands, NIH-0, SR, bp stable, weak distal pulses, skin warm/dry, O2 2 liters nc, lungs decr throughout, exp wheezes with exertions, sat 99, NPC, hyper bowel sounds, inc lg amt liquid stool,
attempted rectal trumpet but leaked, fecal mgmt sys inserted- draining brown liquid , odin clear liquids, purewick in place
[2024-07-17] MEDS: NSS (PRESERVATIVE FREE) 0.125 ML IV (21:37)
--- NOTE | 2024-07-17 21:45 | PTCARENOTE ---
ativan 0.25 mg iv given as requested
[2024-07-17 21:59] LABS: Glucose - Point of Care 230 mg/dl (70-99)
[2024-07-18] VITALS (24 sets, daily range): BP systolic 107–141; BP diastolic 62–93; PULSE 96; O2SAT 97; BMI 29.3
--- NOTE | 2024-07-18 | PTCARENOTE ---
sys reviewed, changes noted, CHG bath done, linens changed
[2024-07-18] MEDS: ATIVAN 0.25 MG IV ×3 (01:47→15:52)
[2024-07-18] MEDS: NSS (PRESERVATIVE FREE) 0.125 ML IV ×3 (01:48→15:53)
[2024-07-18] MEDS: STERILE WATER FOR INJECTION 10 ML IV (01:48)
[2024-07-18] MEDS: MAXIPIME 1000 MG IV (01:48)
--- NOTE | 2024-07-18 01:49 | PTCARENOTE ---
ativan 0.25mg iv given for anx
[2024-07-18 03:56] LABS: Hematocrit 29.7 % (37.0-47.0); Hemoglobin 9.9 g/dL (12.0-16.0); Mean Corp Hgb Conc. 33.3 g/dL (33.0-37.0); Mean Corpuscular Hgb 30.1 pg (27.0-31.0); Mean Corpuscular Volume 90.3 fL (81.0-99.0); Mean Platelet Volume 11.4 fL (7.4-10.4); Platelet Count 291 10^3/uL (130-400); Red Blood Cell Count 3.29 10^6/uL (4.20-5.40); White Blood Cell Count 11.2 10^3/uL (4.8-10.8)
[2024-07-18 04:28] LABS: ALT (SGPT) 17 U/L (0-35); AST (SGOT) 23 U/L (14-36); Albumin 2.5 g/dl (3.5-5.0); Alkaline Phosphatase 65 U/L (38-126); Blood Urea Nitrogen 23 mg/dl (7-17); Carbon Dioxide 28 mmol/L (22-30); Chloride 102 mmol/L (98-107); Estimated Creatinine Clearance 56 ml/min; Glucose 153 mg/dl (70-99); Magnesium 1.9 mg/dl (1.6-2.3); Phosphorus 2.1 mg/dl (2.5-4.5); Potassium 3.6 mmol/L (3.5-5.1); Sodium 132 mmol/L (135-145); Total Bilirubin 0.9 mg/dl (0.2-1.3); Total Protein 4.6 g/dl (6.3-8.2); eGFR > 60.00
[2024-07-18 04:42] LABS: NT-proBNP 9410 pg/ml
--- NOTE | 2024-07-18 05:08 | PTCARENOTE ---
sys reviewed, fine R base crackles, exp wheezes w/ exertion, bladder scanned for 230ml
--- NOTE | 2024-07-18 07:20 | W.PN.GI.CBS2 ---
Addendum entered and electronically signed by Siobhan Torres MD 07/18/24 13:36:
I saw and examined the patient.
The CLAY DIGGER or PA's note was reviewed and I agree with the note.
Comment: Patient denies any abdominal pain, nausea or vomiting. Currently tolerating clear liquid diet. Has fecal management system with dark brownish stool.
Upper GI study 07/17 showing 9 cm hiatal hernia, no evidence of obstruction
As per surgery, plan is to advance her to full liquid diet with supplements starting tomorrow for next 2 weeks and then soft food thereafter.
Noted hemoglobin trended down slightly without any evidence of overt bleeding.
Continue Protonix 40 mg twice daily for 8 weeks and then once a day in the morning before breakfast thereafter given patient is on aspirin/Plavix and also upper endoscopy showed a clot in the duodenal bulb though could be related to NG tube.
Will sign off, please call back if needed.
Original Note:
Today's Communication / Plan
-
NGT now out and pt tolerating clear diet-- I reviewed with surgical team-- cont clears and advance diet per surgery plan
s/p UGI as noted -- no obstruction
still with some liquid stools after contrast given for UGI series
pt remain on ASA and Plavix
cont Protonix BID with recent duodenal clot - would continue BID x 8 weeks then daily on discharge
trend hbg with anemia with slow drop
appreciate surgical input-
Assessment / Plan
-
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 On admission initial troponin was normal with stable EKG. CTA
completed to rule out dissection and PE but noted with large HH . NGT was attempted with some resistance and limited advancement and then placed at 35 cm for decompression with tip at level EG junction account for hernia. NGT drained 525 on 07/14
then 350 on 07/15 per record then came out. On 07/14 Pt was noted with syncope with marked rise in troponin with abnormal EKG concern for NSTEMI. She was taken to lift slab operator with LAD disease with proximal/mid LAD stenting complicated by
dissection. She had brief episode of afib and V fib arrest during procedure. Post procedure she was noted with agitation, restlessness and dysarthria with stoke alert called and consult to neurology with stable CT and possible sedation related
event and integrin continued. 07/15 NGT placed for decompression and noted and follow up UGI 07/16 with no obstruction, 9 cm HH with atlantoaxial volvulus with mild prominence of gastric rugae suggest gastritis-- pt started on clear diet.
07/15 EGD - Tortuous esophagus, large HH, blood clot in duodenal bulb NGT placed no specimen collected
- Large hiatal hernia.
- Blood clot in the duodenal bulb.
- Feeding tube placement was successfully performed.
- No specimens collected.
07/16 UGI with no obstruction, 9 cm HH with atlantoaxial volvulus with mild prominence of gastric rugae suggest gastritis--
-nausea with noted large PEH type III- 07/16 UGI no obstruction 9 cm HH with atlantoaxial volvulus
-duodenal blood clot -ulcer vs NGT trauma
-anemia
-07/14 NSTEMI LAD disease with proximal/mid LAD stenting complicated by dissection. She had brief episode of afib and V fib arrest during procedure
-change in mental status s/p stroke alert 07/14 post cath
-leukocytosis
-hyponatremia
other med problems:
-NIDDM
-HTN
-prior DILI from Macrodantin
--IBS-C
-GERD
PLAN:
NGT now out and pt tolerating clear diet-- I reviewed with surgical team-- cont clears and advance diet per surgery plan
s/p UGI as noted -- no obstruction
still with some liquid stools after contrast given for UGI series
pt remain on ASA and Plavix
cont Protonix BID with recent duodenal clot - would continue BID x 8 weeks then daily on discharge
trend hbg with anemia with slow drop
appreciate surgical input-
Subjective
Subjective
Date of Service: July 18, 2024
07/17 brown stool on rectal bag, tolerating clear diet per surgical team
Objective
Data Reviewed
Laboratory Data:
Laboratory Results
07/18/24 03:35
07/18/24 03:35
Laboratory Results
PT 14.0 Sec (11.4-14.6) 07/14/24 19:48
INR 1.03 07/14/24 19:48
APTT 59.3 Sec (23.4-35.0) H 07/14/24 19:48
Phosphorus 2.1 mg/dl (2.5-4.5) L 07/18/24 03:35
Magnesium 1.9 mg/dl (1.6-2.3) 07/18/24 03:35
Total Bilirubin 0.9 mg/dl (0.2-1.3) 07/18/24 03:35
AST 23 U/L (14-36) 07/18/24 03:35
ALT 17 U/L (0-35) 07/18/24 03:35
Alkaline Phosphatase 65 U/L (38-126) 07/18/24 03:35
Lipase 119 U/L (23-300) 07/12/24 01:34
Vital Signs and I&O:
Vital Signs
Temp Pulse Resp BP Pulse Ox
97.6 F 92 18 119/67 100
07/18/24 03:28 07/18/24 06:00 07/18/24 05:00 07/18/24 06:00 07/18/24 06:00
I&O
07/17/24 07/18/24 07/19/24
06:59 06:59 06:59
Intake Total 2850.0 / 2957.7 1404.8 / 1404.8
Output Total 500 / 500 2450 / 2450
Balance 2350.0 / 2457.7 -1045.2 / -1045.2
Physical Exam
Physical Exam
HEENT: Anicteric and Moist mucous membranes
Cardiology: Normal Sinus Rhythm
Pulmonary: Clear
GI: Soft, Non Distended and Non Tender
Extremities: No Edema
Neuro: Non Focal (nausea improved and much less agitated than last week)
[2024-07-18] MEDS: LOW STRENGTH ASPIRIN 81 MG TUBE (07:38)
[2024-07-18] MEDS: NOVOLOG FLEXPEN-MODERATE RESISTANCE 3 UNITS SC (07:38)
[2024-07-18] MEDS: PACERONE 200 MG PO ×3 (07:39→21:05)
[2024-07-18] MEDS: LASIX 40 MG IV (07:39)
[2024-07-18] MEDS: LOPRESSOR 25 MG TUBE (07:39)
[2024-07-18] MEDS: PROTONIX IV 40 MG IV ×2 (07:39→21:05)
[2024-07-18] MEDS: PLAVIX 75 MG PO (07:39)
[2024-07-18] MEDS: NSS (PRESERVATIVE FREE) 10 ML IV ×2 (07:39→21:05)
--- NOTE | 2024-07-18 07:41 | W.PN.INTV ---
Today's Communication / Plan
Recommendations
Wean oxygen
Aspiration precautions
Gentle diuresis
Advance diet per surgery
Transfer out of ICU-call pulmonary if respiratory issues arise
Assessment
-
83yo F with PMH GERD/hiatal hernia, HTN, DM-II who presented to ED 07/12/24 for nausea, vomiting, and chest/back pain which was worsening over 1-2 weeks prior to admission. Initial workup on admission: EKG normal sinus rhythm, troponin negative x2,
CTA no evidence of thoracic aortic aneurysm or dissection, +moderate coronary artery calcification, +large hiatal hernia. She has a known history of hiatal hernia and had a previous EGD on 10/22/[address] Mixon which revealed tortuous esophagus with
possible varices, erythematous mucosa in antrum, and large hiatal hernia with gastric rotation. In ED this admission, NGT unable to be placed initially; NGT placed by GI and surgery on 07/13 but patient subsequently removed. Plan was for NG
decompression and possible upper GI series; however on 07/14 patient had episode of syncope accompanied by EKG changes and positive troponin, for which she underwent cardiac catheterization and PCI. During procedure, she went into torsades de
pointes with spontaneous resolution. Later in day on 07/14 patient had a rapid response called for AMS, for which neurology was consulted. Her head CT was negative for acute stroke, and her head/neck CTA showed patent [place] and cerebral
artery blood flow (only occlusion was right vertebral artery at V3 segment). Cardiology, GI, general surgery, neurology are following. Given that patient is NPO and may require procedure for hiatal hernia, patient anticoagulation was changed to IV
cangrelor and she moved to ICU for monitoring while using new medication.
Impression:
#NSTEMI s/p IVUS-guided PCI of proximal and mid LAD with ANGEL LUIS x2 placed complicated by torsades de pointes
#Blood clot seen in duodenal bulb possibly related to multiple failed attempts of NGT placement
#AMS � likely related to anesthesia but TIA/CVA still in differential (although unlikely given negative CT head x2)
#UTI with UCx growing K. pneumonia (R to amp + unasyn; Intermediate to macrobid)
#Nausea/vomiting (vomiting now resolved) with suspected GOO
#Acute decompensated heart failure with elevated proBNP of 18,000 (07/16/2024)
#Atrial fibrillation currently in NSR now on amiodarone drip
#Large hiatal hernia likely contributing to gastric outlet obstruction
#Leukocytosis
#Hyponatremia - now resolved
#Elevated troponin - initially due to ACS and now elevated due to s/p cardiac cath with PCI/ANGEL LUIS (troponin peaked at 7.62 on 07/15/2024)
#History of autoimmune hepatitis
#History of esophageal varices
Plan:
She is stabilized hemodynamically and respiratory status is stable
Wean supplemental oxygen
Incentive spirometry
Nebulizers if needed-currently not bronchospastic
Aspiration precautions
Cardiology following-correspondence reviewed
Continue aspirin, Plavix and amiodarone
Gentle diuresis
Monitor renal function, electrolytes, intake/output, lower extremity edema and weight
Replace electrolytes as needed
Continue metoprolol and atorvastatin
Surgery following-correspondence reviewed
Clear liquids with advancement of diet tomorrow
Continue PPI twice daily
Cultures reviewed
Cefepime continues-converted to cefazolin-initiated 07/13/2024-initiate total of 6-7 days
Neurology following-correspondence reviewed
Repeat CT head on 07/15/2024 evening showed no acute intracranial pathology
DVT prophylaxis-on Lovenox
GI prophylaxis-on pantoprazole
Nutrition
Increase activity
Stable for transfer out of ICU-call pulmonary if respiratory issues arise
Data:
Head CT 07/14/2024:
Stable mild chronic findings. No acute intracranial hemorrhage. No evidence to suggest acute large vascular territory transcortical infarct at this time.
Head CT 07/15/2024:
There are no acute intracranial abnormalities. There is moderate diffuse cortical atrophy with mild nonspecific white matter changes
Head/neck CTA 07/14/24:
No [place] region aneurysm or stenosis.
No cerebral artery significant plaque, stenosis, thrombus, or occlusion.
The cervical carotid and vertebral arteries are patent without significant plaque, stenosis, occlusion, or dissection. 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
The right vertebral artery is occluded at the V3 segment, with lack of intraluminal contrast opacification beyond the proximal intradural component at the posterior margin of the occipital condyle. The left intradural vertebral artery is dominant
and patent.
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 Bilateral patent posterior communicating arteries.
Degree of stenosis based on NASCET criteria.
Chest CTA 07/12/24:
1. No evidence of thoracic aortic aneurysm or dissection. No pulmonary embolism.
2. Moderate coronary arterial calcification. Please correlate with symptoms of and risk factors for coronary artery disease, with further workup as clinically appropriate.
3. Large hiatal hernia, without evidence of incarceration.
UGI Series 07/17/2024:
There is no obstruction
There is 9 cm hiatal hernia with atlantoaxial volvulus
There is mild prominence of the gastric rugae suggesting possible gastritis
Total time spent today was 38 minutes for this encounter. Time includes reviewing laboratory test/imaging results, reviewing pertinent medical records, obtaining and reviewing medical history, performing an appropriate exam, ordering medications,
tests and procedures. Time also includes documentation of this encounter, coordinating patient care and communicating with other healthcare professionals. Total time does not include separately billed tests performed on this date of service.
Subjective Dataa
Subjective Data
Date of Service:
Date of Service: July 18, 2024
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
Subjective:
No complaints of shortness of breath or chest pain
Review of Systems
General: Other (Per HPI)
Objective Data
Data Reviewed
Vital Signs / I&O / Oxygen:
Vital Signs
Temp Pulse Resp BP Pulse Ox
97.6 F 105 18 141/93 100
07/18/24 03:28 07/18/24 07:39 07/18/24 05:00 07/18/24 07:39 07/18/24 06:00
Intake and Output
07/17/24 07/18/24 07/19/24
06:59 06:59 06:59
Intake Total 2850.0 / 2957.7 1404.8 / 1404.8
Output Total 500 / 500 2450 / 2450
Balance 2350.0 / 2457.7 -1045.2 / -1045.2
SaO2 100
Nasal Cannula flow liters per 2
minute
Physical Exam
General: Respiratory Distress (negative), Comfortable, Chills (negative), Sweats (negative) and Other (Feels generally uncomfortable)
HEENT: Normocephalic, Anicteric and Moist Mucous Membranes
Cardiovascular: Regular Rhythm, Rub (negative) and Peripheral Edema (negative)
Respiratory: Wheeze (negative), Rhonchi (negative), Non-Labored Respirations, Stridor (negative) and Other (Coarse breath sounds bilaterally)
GI: Soft, Non Distended, Non Tender and Normal Bowel Sounds
Neurology: Awake, Alert and Tremors (negative)
Skin: Warm, Dry, Cyanosis (negative) and Jaundice (negative)
Labs/Micro/Reports
Lab Data
07/18/24 03:35
07/18/24 03:35
[2024-07-18 07:50] LABS: Glucose - Point of Care 214 mg/dl (70-99)
--- NOTE | 2024-07-18 08:08 | PTCARENOTE ---
pt received from previous rn- aox3, on 2LNC, able to make needs known. NIH 0. pt provided am care, fms flushed and patent. pt educated about fms and plan of care- verbalized understanding. discussed POC with Dr. Marsh. pt tolerating clear liquids.
pt anxious given prn ativan as per order. all safety precautions in place, call juarez within reach, bed alarm on and functioning.
--- NOTE | 2024-07-18 08:15 | W.PN.HOSP.TC ---
Today's Communication/Plan
-
Downgrade to IVU
Continue DAPT
On clear liquids
Plan to start on fulls and supplement shakes tomorrow per surgery.
Plan to DC on the same for 2 weeks before starting soft foods diet per surgery.
Lantus 10 units
Monitor BG levels, and potassium
Continue IV Lasix
Continue IV PPI, can transition to oral PPI
Assessment / Plan
Assessment / Plan
Impression
NSTEMI s/p PCI of proximal LAD
HFmrEF
Paraesophageal hernia
Atrial fibrillation with rapid ventricular response
Duodenal clot
Toxic metabolic encephalopathy
Hyperglycemia
Klebsiella UTI
Hypertension
Anxiety
Hyperlipidemia
Assessment and plan
NSTEMI s/p PCI of proximal LAD
Downgrade to IVU
Continue DAPT
Cardiac rehab
Monitor on telemetry
HFmrEF
IV Lasix 40 daily
LVEF 45%
GDMT therapy-consider starting on JAMILAH
Continue metoprolol
Paraesophageal hernia
S/p EGD, large hiatal hernia blood clot is present in the duodenal
Upper GI series showing no gastric outlet obstruction
Patient is tolerating clear liquids
Plan to start on fulls and supplement shakes tomorrow per surgery.
Plan to DC on the same for 2 weeks before starting soft foods diet per surgery.
Continue PPI IV twice daily, can transition to p.o. since no obstruction
Avoid NSAIDs
Duodenal clot
Hemoglobin 9.9<10.5
Continue to monitor H&H
GI following
Avoid NSAIDs
Hold AC
Atrial fibrillation with RVR
In sinus rhythm
Transitioned to amiodarone PO 200 mg
Continue metoprolol
Continue to monitor on telemetry
Klebsiella UTI
Urine culture positive for Klebsiella pneumonia
Sensitive for cefazolin and ciprofloxacin gentamicin Pepto as, tetracycline Bactrim
Switched to cefazolin IV
Toxic metabolic encephalopathy
Ativan as needed
Neurology following
Hyperglycemia
Lantus 10 units
Sliding scale
Monitor blood glucose level
Hypertension
Continue p.o. metoprolol
Anxiety
Restart sertraline 25 mg PO
Ativan as needed
Hyperlipidemia
On Lipitor 40 mg
CODE STATUS DNR
Diet clear liquids
DVT prophylaxis-SCD
Anticipated Discharge: > 48 hours
Subjective/Interval History
-
Date of Service: July 18, 2024
Patient was anxious overnight and was given Ativan 0.25
Objective Data
-
Labs:
Laboratory Results
07/18/24
03:35
WBC 11.2 H
Hgb 9.9 L
Hct 29.7 L
Plt Count 291
Sodium 132 L
Potassium 3.6
Chloride 102
Carbon Dioxide 28
BUN 23 H
Creatinine 0.6
Glucose 153 H
Calcium 8.0 L
Total Bilirubin 0.9
AST 23
ALT 17
Alkaline Phosphatase 65
Vital Signs:
Vital Signs
Temp Pulse Resp BP Pulse Ox
97.5 F 105 18 141/93 99
07/18/24 07:30 07/18/24 07:39 07/18/24 05:00 07/18/24 07:39 07/18/24 08:00
I&O
07/17/24 07/18/24 07/19/24
06:59 06:59 06:59
Intake Total 2850.0 / 2957.7 1404.8 / 1404.8 150 / 150
Output Total 500 / 500 2450 / 2450
Balance 2350.0 / 2457.7 -1045.2 / -1045.2 150 / 150
Review of Systems
-
All other systems: Reviewed and negative (Except mentioned)
Psych: Reports Anxious
Physical Exam
-
General: No Apparent Distress and Other (Appears fatigued)
HEENT: Normocephalic and Atraumatic
Respiratory: Clear to Auscultation and Chest Tubes; Negative Wheezes, Rales, Rhonchi or Crackles
Cardiac: Regular Rhythm
GI: Soft, Nontender, Nondistended and Normal Bowel Sounds
Genito-urinary: Other
Musculoskeletal: No Edema
Skin: Other (Purplish discoloration/patches seen on the anterior chest)
Neuro: AO x 3
Psych: Calm
Data Reviewed
-
Medical Tests (Nuc Med, Echo etc): Report Reviewed by me and Discussed with Physician
Labs: Discussed with Physician and Discussed with Nurse
--- NOTE | 2024-07-18 08:39 | W.PN.INTV ---
Documented by User: Amarilis Maldonado MD, Resident 07/18/24 11:19
Today's Communication / Plan
Recommendations
Tolerating clear liquid diet. ADAT.
Continue PO plavix, aspirin, amiodarone, statin, metoprolol. Continue IV lasix.
Rate control with goal HR < 110.
Continue protonix BID.
Continue ancef for today- dc tomorrow.
Continue ISS, goal BG 140-180.
Downgrade to telemetry.
Assessment
-
83yo F with PMH GERD/hiatal hernia, HTN, DM-II who presented to ED 07/12/24 for nausea, vomiting, and chest/back pain which was worsening over 1-2 weeks prior to admission. Initial workup on admission: EKG normal sinus rhythm, troponin negative x2,
CTA no evidence of thoracic aortic aneurysm or dissection, +moderate coronary artery calcification, +large hiatal hernia. She has a known history of hiatal hernia and had a previous EGD on 10/22/[address] Mixon which revealed tortuous esophagus with
possible varices, erythematous mucosa in antrum, and large hiatal hernia with gastric rotation. In ED this admission, NGT unable to be placed initially; NGT placed by GI and surgery on 07/13 but patient subsequently removed. Plan was for NG
decompression and possible upper GI series; however on 07/14 patient had episode of syncope accompanied by EKG changes and positive troponin, for which she underwent cardiac catheterization and PCI. During procedure, she went into torsades de
pointes with spontaneous resolution. Later in day on 07/14 patient had a rapid response called for AMS, for which neurology was consulted. Her head CT was negative for acute stroke, and her head/neck CTA showed patent [place] and cerebral
artery blood flow (only occlusion was right vertebral artery at V3 segment). Cardiology, GI, general surgery, neurology are following. Given that patient is NPO and may require procedure for hiatal hernia, patient anticoagulation was changed to IV
cangrelor and she moved to ICU for monitoring while using new medication.
Impression:
#NSTEMI s/p IVUS-guided PCI of proximal and mid LAD with ANGEL LUIS x2 placed complicated by torsades de pointes
#Blood clot seen in duodenal bulb possibly related to multiple failed attempts of NGT placement
#AMS � likely related to anesthesia but TIA/CVA still in differential (although unlikely given negative CT head x2)
#UTI with UCx growing K. pneumonia (R to amp + unasyn; Intermediate to macrobid)
#Nausea/vomiting (vomiting now resolved) with concern for GOO
#Acute decompensated heart failure with elevated proBNP of 18,000 (07/16/2024)
#Atrial fibrillation currently in NSR now on amiodarone
#Large hiatal hernia
#Leukocytosis
#Hyponatremia mild
#Elevated troponin - initially due to ACS and now elevated due to s/p cardiac cath with PCI/ANGEL LUIS (troponin peaked at 7.62 on 07/15/2024)
#History of autoimmune hepatitis
#History of esophageal varices
#Anxiety
Plan:
- Pt was started on Integrillin initially, then transitioned to cangrelor on 07/15 in setting of recent stent x2 to LAD on 07/14/2024. Now on plavix + aspirin.
- She is s/p EGD on 07/15/2024 which found a tortuous esophagus with a large hiatal hernia, with blood clot seen in the duodenal bulb, and an 18 Thai nasogastric tube was placed under endoscopic guidance
- Continue ASA --> upper GI series showed no evidence of obstruction, with a 9 cm hiatal hernia with atlantoaxial volvulus and mild prominence of the gastric rugae suggesting possible gastritis --> conversation held between GI, cardiology and
surgery-- given that no obstruction seen on UGIS, NGT was removed and cangrelor was transitioned to Plavix. Eventually if she is tolerating Plavix + aspirin with no signs of bleeding, then the ultimate goal will be to stop aspirin, continue plavix
and transition her to Eliquis
- Cardiology following and recs appreciated
- High intensity statin started 07/17/24. Trend LFTs
- S/p IV Lopressor 7.5mg q6hr. Now on PO metoprolol tartate 25mg BID with holding parameters
- Continue PO amiodarone per cardiology (currently in NSR)
- Now on IV lasix 40mg daily per cardiology given that her proBNP is 18,000 (07/16/2024)
- Replete K>4, Mg>2
- Maintain MAP>65
- Maintain SpO2 >94% with supplemental oxygen and titrate down as tolerated
- Troponin peaked at 7.62 on 07/15/2024 � no longer need to continue trending
- Since UGI series showed no evidence of obstruction, NGT was removed and she is now on clear liquid diet. ADAT
- GI consulted and recs appreciated
- General surgery consulted and recs appreciated
- PPI 40mg IV BID --> defer to GI when we can change from IV to PO (of note, she takes omemprazole 20mg daily at home)
- Continue aspiration precautions
- S/p cefepime 07/13-07/17. Then transitioned to ancef 07/18/24.
- Would give total of 6 days ABx
- Continue neurochecks and NIHSS q shift
- Neurology consulted and recs appreciated
- Repeat CT head on 07/15/2024 evening showed no acute intracranial pathology
- Stop IVF with NS 0.9% if tolerating PO hydration; continue trending sNa with goal 135-145
- Maintain euglycemia with goal BG 140-180mg/dL; continue ISS
- Resume home sertraline
- DVT ppx: LMWH
- Code status:�DNR/DNI
Given that she remains stable with no signs of bleeding, downgrade to telemetry today.
Data:
Head CT 07/14/2024:
Stable mild chronic findings. No acute intracranial hemorrhage. No evidence to suggest acute large vascular territory transcortical infarct at this time.
Head CT 07/15/2024:
There are no acute intracranial abnormalities. There is moderate diffuse cortical atrophy with mild nonspecific white matter changes
Head/neck CTA 07/14/24:
No [place] region aneurysm or stenosis.
No cerebral artery significant plaque, stenosis, thrombus, or occlusion.
The cervical carotid and vertebral arteries are patent without significant plaque, stenosis, occlusion, or dissection. 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
The right vertebral artery is occluded at the V3 segment, with lack of intraluminal contrast opacification beyond the proximal intradural component at the posterior margin of the occipital condyle. The left intradural vertebral artery is dominant
and patent.
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 Bilateral patent posterior communicating arteries.
Degree of stenosis based on NASCET criteria.
Chest CTA 07/12/24:
1. No evidence of thoracic aortic aneurysm or dissection. No pulmonary embolism.
2. Moderate coronary arterial calcification. Please correlate with symptoms of and risk factors for coronary artery disease, with further workup as clinically appropriate.
3. Large hiatal hernia, without evidence of incarceration.
UGI Series 07/17/2024:
There is no obstruction
There is 9 cm hiatal hernia with atlantoaxial volvulus
There is mild prominence of the gastric rugae suggesting possible gastritis
Subjective Dataa
Subjective Data
Date of Service:
Date of Service: July 18, 2024
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
Subjective:
Patient seen and evaluated this morning. No acute events overnight. She feels a little better than when I saw her 3 days ago, but she feels discouraged still being in hospital. Only complaint is fms and feeling weak. She has had some ice and broth
and is tolerating it well. +Occasional nausea, but none right now. Denies light headedness, dizziness, chest pain, shortness of breath, vomiting. HR 83 NSR, SpO2 100% on 2L/min NC, BP 125/88.
Review of Systems
General: Other (see above)
Objective Data
Data Reviewed
Vital Signs / I&O / Oxygen:
Vital Signs
Temp Pulse Resp BP Pulse Ox
97.5 F 98 27 125/88 100
07/18/24 07:30 07/18/24 08:10 07/18/24 08:10 07/18/24 08:10 07/18/24 08:10
Intake and Output
07/17/24 07/18/24 07/19/24
06:59 06:59 06:59
Intake Total 2850.0 / 2957.7 1404.8 / 1404.8 150 / 150
Output Total 500 / 500 2450 / 2450
Balance 2350.0 / 2457.7 -1045.2 / -1045.2 150 / 150
SaO2 100
Nasal Cannula flow liters per 2
minute
Physical Exam
General: Respiratory Distress (negative), Comfortable, Chills (negative) and Sweats (negative)
HEENT: Normocephalic, Anicteric and Moist Mucous Membranes
Cardiovascular: S1-S2, Regular Rhythm, Murmur (negative) and Peripheral Edema (negative)
Respiratory: Clear, Wheeze (negative), Rhonchi (negative), Non-Labored Respirations, Stridor (negative) and Other (2L/min NC)
GI: Soft, Non Distended, Non Tender, Normal Bowel Sounds and NG Tube (negative)
Neurology: Awake, Alert, Oriented, AO x 3 and Tremors (negative)
Skin: Warm, Dry, Cyanosis (negative), Jaundice (negative) and Bruising (sternum extending onto breasts bilaterally, posterior R shoulder)
Labs/Micro/Reports
Lab Data
07/18/24 03:35
07/18/24 03:35

Documented by User: Jerson Daniels MD 07/18/24 14:11
Today's Communication / Plan
Recommendations
Tolerating clear liquid diet. ADAT.
Continue PO plavix, aspirin, amiodarone, statin, metoprolol. Continue IV lasix.
Rate control with goal HR < 110.
Continue protonix BID.
Continue ancef for today- dc tomorrow.
Continue ISS, goal BG 140-180.
Downgrade to telemetry.
I reviewed this patients case independently and in conjunction with the resident. I personally examined the patient. Patient's complex medical history, laboratory evaluations, events over the last 24 hours, radiographs, microbiological data were
all personally reviewed.
Agree with documented assessment and plan
Critical care statement: A total of 38 minutes of critical care time was provided for this patient today. This includes management of unstable vital signs, evaluation of the patient at bedside, reviewing the patient's pertinent medical records
including radiographs, microbiology, laboratory evaluations, and discussion with primary team, consultants, pharmacy, charge nurse, critical care nursing, and respiratory therapy.
Jerson Daniels MD, [facility], [facility]
Subjective Dataa
Subjective Data
Chief Complaint: Pulmonary Follow Up
--- NOTE | 2024-07-18 08:55 | W.PN.GS2 ---
Today's Communication / Plan
-
-- Clears, would start on fulls and supplement shakes tomorrow, would plan to DC on fulls with supplement shakes for the next 2 weeks before trials soft food diet
-- OK for PO meds including Plavix, would crush those larger than a Tylenol
-- PPI BID
Assessment / Plan
-
Assessment : 83F admitted with type III PEH and recurrent nausea and possible component of gastric outlet obstruction
ST elevated [place] with troponin elevation - now status post cardiac catheterization with angioplasty/ANGEL LUIS placement on IV Cangrelor --> Plavix
Initial NG tube inadvertently dislodged, developed nausea in the interim and now s/p EGD on 07/15 for decompression and NGT placement, no evidence of incarceration or torsion, blood clot seen at apex of duodenal bulb and PPI gtt initiated
Afebrile, intermittent Afib
H/H with acute bloodless and dilutional anemia, stable
UGI on 07/17 with no evidence of an obstruction, presbyesophagus, no ulcerations or masses. NGT removed and started on clears.
Plan for medical management of her PEH with dietary modifications and PPI. High risk for surgical intervention given anticoagulation with antiplatelets and recent IA. Recurrent issues with nausea and vomiting over the next 8 weeks (prompting need
for surgical intervention) would best be addressed with a laparoscopic gastropexy. Would plan on a modified full liquid diet with supplement shakes for the next 2 weeks with advancement back to soft foods if tolerating. Plan for outpatient
follow-up to further discuss and review surgical treatment options. All questions answered. Daughter updated by phone.
Plan:
-- Clears, would start on fulls and supplement shakes tomorrow, would plan to DC on fulls with supplement shakes for the next 2 weeks before trials soft food diet
-- OK for PO meds including PLavix, would crush those larger than a Tylenol
-- PPI BID
-- If recurrent issues with nausea or dysphagia would plan on a laparoscopic gastropexy, plan for outpatient follow-up approximately 2-3 weeks following discharge
-- Medical management as per Cardiology
Daughter updated by phone
Subjective Data
-
Date of Service: July 18, 2024
Feels weak and deconditioned. Denies chest or abdominal pain. No nausea or emesis. UGI yesterday without obstruction. No fevers.
Objective Data
-
Intake and Output
07/17/24 07/18/24 07/19/24
06:59 06:59 06:59
Intake Total 2850.0 / 2957.7 1404.8 / 1404.8 150 / 150
Output Total 500 / 500 2450 / 2450
Balance 2350.0 / 2457.7 -1045.2 / -1045.2 150 / 150
Intake:
Oral fluids 750 / 750 100 / 100
IV fluids (Total) 2750.0 / 2857.7 594.8 / 594.8
Amiodarone 417.0 / 433.7 150.3 / 150.3
KCL rider 67.5 / 135.0 252.5 / 252.5
Nss 1,000 ml @ 75 mls/hr IV . 1725 / 1725 0 / 0
[id number] [facility] Rx#:[id number]
Nss 250 ml @ 0.75 MCG/KG/MIN 13 310.5 / 324.0 162.0 / 162.0
.518 mls/hr IV .[id number] [facility]
with Kengreal 50,000 Mcg Rx#:
[id number]
protonix 230 / 240 30 / 30
IV piggybacks 100 / 100
Fecal management system 60 / 60 50 / 50
irrigation (mL)
Rectum 60 / 60 50 / 50
Output:
Gastrointestinal tube output ( 100 / 100
Total)
Telford Sump 100 / 100
Urine, Voided 400 / 400 2450 / 2450
Other:
Number of approximated MODERATE 1
amounts of urine
How many times incontinent 1 1
MODERATE amount urine
Vital Signs
Temp Pulse Resp BP Pulse Ox
97.5 F 98 27 125/88 100
07/18/24 07:30 07/18/24 08:10 07/18/24 08:10 07/18/24 08:10 07/18/24 08:10
Lab Results
07/18/24 03:35
07/18/24 03:35
Calcium 8.0 mg/dl (8.4-10.2) L 07/18/24 03:35
Phosphorus 2.1 mg/dl (2.5-4.5) L 07/18/24 03:35
Magnesium 1.9 mg/dl (1.6-2.3) 07/18/24 03:35
Total Bilirubin 0.9 mg/dl (0.2-1.3) 07/18/24 03:35
AST 23 U/L (14-36) 07/18/24 03:35
ALT 17 U/L (0-35) 07/18/24 03:35
Alkaline Phosphatase 65 U/L (38-126) 07/18/24 03:35
Total Protein 4.6 g/dl (6.3-8.2) L 07/18/24 03:35
Albumin 2.5 g/dl (3.5-5.0) L 07/18/24 03:35
Physical Exam
-
Gen: NAD, deconditioned
Abd: soft, NT/ND, non-peritoneal
--- NOTE | 2024-07-18 09:15 | W.PN.CARDCBS ---
Today's Communication / Plan
-
Continue aspirin, Plavix, and amiodarone.
Replete potassium and continue IV Lasix. Creatinine stable.
Continue metoprolol and atorvastatin.
Would continue to diurese.
Remains in sinus rhythm for now. With her duodenal bleeding would hold off on full anticoagulation.
Impression / Plan
-
Primary Inside Sales Associate: none
Assessment:
Presentation 07/12/2024 with N/V, chest and back pain
Large paraesophageal hernia
Concern for syncope on commode 07/14/24
NSTEMI 07/14/2024
s/p LAD ANGEL LUIS x 2 overlapping stents (prox [employer]tronic Олег [place] 2.25 x 26 ANGEL LUIS, mid LAD [employer]tronic Олег [place] 2.0 x 18 ANGEL LUIS)
Sinus tachycardia
Hyponatremia
HTN
HLD
GERD/hiatal hernia
Anxiety
Diabetes
History of esophageal varices
Cardiac catheterization 07/14/2024: LM: Patent. LAD proximal 70% with additional proximal 70 to 80% hazy stenosis/thrombosis, mid 70%, (status post emergent prox Medtronic [place] 2.25 x 26 ANGEL LUIS, mid LAD [employer] Олег [place] 2.0 x 18 ANGEL LUIS) .
Diagonal 70% ostial and 70% proximal. Circumflex: Patent. RCA: LI
Echo 07/14/2024: EF 45% with mild concentric LVH. Moderately reduced LV systolic function with anteroseptal and apical hypokinesis. Moderately enlarged LA. Mild MR, mild AAS with peak/mean gradient 12/8 mmHg. Mild to moderate TR, moderate
pulmonary hypertension with PAP 47 mmHg
Stress echo 10/2017: low risk stress test
Plan:
-GI placed NG tube with EGD. No evidence of incarceration or torsion. There was a blood clot seen at the apex of the duodenal bulb. Patient was placed on Protonix drip.
-Upper GI overall stable and NG tube is out. She is now tolerating liquid diet and will continue to advance. Continue Plavix 75 mg daily and aspirin 81 mg daily.
-Her weight is improving. Will continue Lasix 40 mg IV daily. Hold IV fluids.
-After syncopal event 07/14/2024 patient found to have abnormal EKG which showed possible anterolateral ST elevation and trop elevated at 3 (trops negative x2 on admission). Prompting patient to undergo cardiac catheterization which demonstrated
multiple LAD lesions with concern for thrombosis for which patient underwent proximal LAD ANGEL LUIS. Procedure was complicated by distal dissection requiring additional ANGEL LUIS to mid LAD. Postprocedural angiography showed KATHIE-3 flow through LAD.
-Patient did have self limiting V-fib during procedure
-She is back in sinus rhythm. With duodenal bulb blood clot would hold off on full anticoagulation. Continue aspirin, Plavix and amiodarone.
-Continue metoprolol, atorvastatin. Blood pressure overall stable.
Hemoglobin down to 9.9. Continue PPI with duodenal blood clot. Troponin trending down to 5.7. Creatinine normal at 0.6. LFTs improved.
Okay to transfer to IVU.
Progress Note - Inside Sales Associate
Subjective
Date of Service: July 18, 2024
Overall looks better. Tolerating liquid diet. No significant pains.
Objective
Labs:
07/18/24 03:35
07/18/24 03:35
Labs
Hgb 9.9 g/dL (12.0-16.0) L 07/18/24 03:35
Hct 29.7 % (37.0-47.0) L 07/18/24 03:35
Plt Count 291 10^3/uL (130-400) 07/18/24 03:35
PT 14.0 Sec (11.4-14.6) 07/14/24 19:48
INR 1.03 07/14/24 19:48
APTT 59.3 Sec (23.4-35.0) H 07/14/24 19:48
Sodium 132 mmol/L (135-145) L 07/18/24 03:35
Potassium 3.6 mmol/L (3.5-5.1) 07/18/24 03:35
BUN 23 mg/dl (7-17) H 07/18/24 03:35
Creatinine 0.6 mg/dL (0.6-1.0) 07/18/24 03:35
Glucose 153 mg/dl (70-99) H 07/18/24 03:35
Troponins
07/15/24 07/15/24 07/16/24
13:00 21:34 03:10
Troponin I 7.100 H* 7.620 H* 5.720 H*
Vital Signs and I&O:
Vital Signs
Temp Pulse Resp BP Pulse Ox
97.5 F 98 27 125/88 100
07/18/24 07:30 07/18/24 08:10 07/18/24 08:10 07/18/24 08:10 07/18/24 08:10
Vital Signs
Temp Pulse Resp BP Pulse Ox
97.5 F 98 27 125/88 100
07/18/24 07:30 07/18/24 08:10 07/18/24 08:10 07/18/24 08:10 07/18/24 08:10
Intake & Output
07/16/24 07/17/24 07/18/24 07/19/24
06:59 06:59 06:59 06:59
Intake Total 2267.0 / 2365.5 2850.0 / 2957.7 1404.8 / 1404.8 150 / 150
Output Total 500 / 500 500 / 500 2450 / 2450
Balance 1767.0 / 1865.5 2350.0 / 2457.7 -1045.2 / -1045.2 150 / 150
Physical Exam
Physical Exam
GEN: No distress, awake, Ox3
HEENT: supple, anicteric, mmm
LUNGS: bilatr honchi
CV: Reg, S1/S2, 1/6 syst LSB, no gallop
ABD: soft, BS+, NT/ND
EXT: No edema
NEURO: Gross non-focal
SKIN: No rash
[2024-07-18] MEDS: KCL ELIXIR 40 MEQ PO (10:12)
[2024-07-18] MEDS: ANCEF 5 IV ×2 (10:12→17:00)
[2024-07-18] MEDS: ZOLOFT 25 MG PO (11:34)
--- NOTE | 2024-07-18 11:35 | PTCARENOTE ---
blood sugar 392- rechecked 340- Dr. Sanchez aware- ordered sliding scale given for 340. additional lantus ordered by .
[2024-07-18] MEDS: NOVOLOG FLEXPEN-MODERATE RESISTANCE 7 UNITS SC (11:37)
[2024-07-18 11:48] LABS: Glucose - Point of Care 392 mg/dl (70-99)
[2024-07-18] MEDS: LANTUS 0.12 UNITS SC (12:08)
[2024-07-18 13:32] LABS: Blood Urea Nitrogen 18 mg/dl (7-17); Calcium 8.6 mg/dl (8.4-10.2); Carbon Dioxide 30 mmol/L (22-30); Chloride 96 mmol/L (98-107); Estimated Creatinine Clearance 47 ml/min; Glucose 239 mg/dl (70-99); Sodium 134 mmol/L (135-145); eGFR > 60.00
--- NOTE | 2024-07-18 15:33 | PTCARENOTE ---
pt oob to chair for 1 hour, max assist back to bed. plan of care discussed with Dr. Ekta masterson to d/c neuro checks.
--- NOTE | 2024-07-18 15:59 | CM ---
CM following re: discharge planning.
Reviewed pt's chart, met with pt and daughter Cristel at bedside.
PT and OT evaluations noted - SNF level,of care recommended. CM discussed it with pt and her daughter Cristel. Daughter Cristel stated that pt was independent [employer], uses a walker occasionally and she preferred [facility]. CM explained admitting
criteria for acute rehab and both pt and her daughter requested [facility] as number one choice and for SNF level of care they preferred [facility] and/or [facility].
A referral to above SNFs made.
D/C plan: Plan A: [facility]. Plan B: [facility] SNF or [facility] SNF.
CM will follow with discharge plan updates as hospitalization progresses
--- NOTE | 2024-07-18 16:26 | PTCARENOTE ---
report given to Alexa TORRES. pt and daughter aware of transfer. sent with belongings.
[2024-07-18 16:27] LABS: Glucose - Point of Care 145 mg/dl (70-99)
[2024-07-18] MEDS: NOVOLOG FLEXPEN-MODERATE RESISTANCE SC (16:30)
--- NOTE | 2024-07-18 16:31 | PTCARENOTE ---
assumed care of pt upon transfer to IVU. Daughter at bedside. Pt is awake and alert, although anxious denies pain. NSR., trace b/l pedal edema. weak PP b/l. lung sounds are diminished although scattered expiratory wheeze noted intermit. abd round
obese, tender to palp. Accucheck obtained. purwick draining clear yellow urine. apparatus exchanged. pressure dressing to left wrist CDI. large purple bruise noted to d/l center of chest. pt reports generalized weakness and fatigue. [facility] completed
with B[facility] GR[facility]ER. Pt settled into new room. CB in reach, instructed on use.
[2024-07-18] MEDS: LOVENOX 40 MG SC (17:00)
[2024-07-18] MEDS: LIPITOR 40 MG PO (17:00)
[2024-07-18] MEDS: LOPRESSOR TUBE (20:44)
[2024-07-18] MEDS: LOPRESSOR 25 MG PO (21:05)
[2024-07-19] VITALS (9 sets, daily range): BP systolic 100–145; BP diastolic 71–93; PULSE 89; BMI 29.4
[2024-07-19] LABS: Glucose - Point of Care 205 mg/dl (70-99)
[2024-07-19] MEDS: ATIVAN 0.25 MG IV ×2 (00:01→08:21)
[2024-07-19] MEDS: NSS (PRESERVATIVE FREE) 0.125 ML IV ×2 (00:02→08:22)
[2024-07-19] MEDS: ANCEF 5 IV ×3 (01:32→17:26)
[2024-07-19 03:43] LABS: % Basophils 0.4 % (0-2); % Eosinophils 2.5 % (0-6); % Immature Granulocytes 0.7 % (0-0.5); % Lymphocytes 15.8 % (20.5-51.1); % Monocytes 14.7 % (1.7-9.3); % Neutrophils 65.9 % (42.2-75.2); Absolute Eosinophils 0.3 10^3/uL (0-0.7); Absolute Immature Granulocytes 0.1 10^3/uL (0-0.05); Absolute Lymphocytes 1.8 10^3/uL (1.2-3.4); Absolute Monocytes 1.7 10^3/uL (0.1-0.6); Absolute Neutrophils 7.5 10^3/uL (1.4-6.5); Hematocrit 31.8 % (37.0-47.0); Hemoglobin 10.8 g/dL (12.0-16.0); Mean Corpuscular Hgb 30.1 pg (27.0-31.0); Mean Corpuscular Volume 88.6 fL (81.0-99.0); Mean Platelet Volume 11.4 fL (7.4-10.4); Nucleated Red Blood Cells % 0 %; Platelet Count 325 10^3/uL (130-400); Red Blood Cell Count 3.59 10^6/uL (4.20-5.40); Red Cell Dist. Width 12.9 % (11.5-14.5); White Blood Cell Count 11.4 10^3/uL (4.8-10.8)
[2024-07-19 04:03] LABS: Blood Urea Nitrogen 16 mg/dl (7-17); Calcium 8.1 mg/dl (8.4-10.2); Carbon Dioxide 29 mmol/L (22-30); Chloride 96 mmol/L (98-107); Estimated Creatinine Clearance 55 ml/min; Glucose 155 mg/dl (70-99); Potassium 3.5 mmol/L (3.5-5.1); Sodium 131 mmol/L (135-145); eGFR > 60.00
--- NOTE | 2024-07-19 05:00 | PTCARENOTE ---
Assumed care of pt at change of shift. NSR on tele with HR 80s-90s. R radial cath site JENN, c/d/i with no complications noted. Denies CP and SOB. AAOx3 but forgetful with frequent repeating of questions. Pt reports feeling extremely anxious and
not being able to sleep. Pt began requesting IV Ativan at 1999 however med not due until ~0000. Pt repositioned multiple times in effort to calm her down however pt remains anxious. IV Ativan administered per orders at 0001. Pt turned Q2hr to
prevent skin breakdown. Fecal management system in place draining dark brown stool. Can make needs known. Call juarez within reach.
[2024-07-19] MEDS: NOVOLOG FLEXPEN-MODERATE RESISTANCE 1 UNITS SC (08:27)
--- NOTE | 2024-07-19 08:27 | W.PN.HOSP.TC ---
Today's Communication/Plan
-
Advance diet to fulls and shakes
increase Ativan to 0.25 for anxiety
Continue sertraline 25 mg
Downgrade to med/surg
Will talk to CM for possible discharge to SNF in 1-2 days.
PT/OT
Assessment / Plan
Assessment / Plan
Impression
NSTEMI s/p PCI of proximal LAD
HFmrEF
Paraesophageal hernia
Atrial fibrillation with rapid ventricular response
Duodenal clot
Toxic metabolic encephalopathy
Hyperglycemia
Klebsiella UTI
Hypertension
Anxiety
Hyperlipidemia
Assessment and plan
NSTEMI s/p PCI of proximal LAD
Downgrade to IVU
Continue DAPT
Cardiac rehab
Monitor on telemetry
HFmrEF
IV Lasix 40 daily
LVEF 45%
GDMT therapy-consider starting on JAMILAH
Continue metoprolol
Paraesophageal hernia
S/p EGD, large hiatal hernia blood clot is present in the duodenal
Upper GI series showing no gastric outlet obstruction
Patient is tolerating clear liquids
Advance diet to fulls and supplement shakes today per surgery
Plan to DC on the same for 2 weeks before starting soft food diet per surgery.
Continue PPI IV twice daily, can transition to p.o. since no obstruction
Avoid NSAIDs
Duodenal clot
Hemoglobin 9.9<10.5
Continue to monitor H&H
GI following
Avoid NSAIDs
Hold AC
Atrial fibrillation with RVR
In sinus rhythm
Transitioned to amiodarone PO 200 mg
Continue metoprolol
Continue to monitor on telemetry
Klebsiella UTI
Urine culture positive for Klebsiella pneumonia
Sensitive for cefazolin and ciprofloxacin gentamicin Pepto as, tetracycline Bactrim
Switched to cefazolin IV
Toxic metabolic encephalopathy
Ativan as needed
Neurology following
Hyperglycemia
Lantus 10 units
Sliding scale
Monitor blood glucose level
Hypertension
Continue p.o. metoprolol
Anxiety
Restart sertraline 25 mg PO
IV lorazepam 0.5 every 8h as needed
Hyperlipidemia
On Lipitor 40 mg
CODE STATUS DNR
Diet clear liquids
DVT prophylaxis-SCD
Anticipated Discharge: > 48 hours
Subjective/Interval History
-
Date of Service: July 19, 2024
Patient reports of being anxious overnight. She could not sleep well. Patient was given Ativan at night which did help her a little.
Objective Data
-
Labs:
Laboratory Results
07/19/24
03:18
WBC 11.4 H
Hgb 10.8 L
Hct 31.8 L
Plt Count 325
Sodium 131 L
Potassium 3.5
Chloride 96 L
Carbon Dioxide 29
BUN 16
Creatinine 0.6
Glucose 155 H
Calcium 8.1 L
Vital Signs:
Vital Signs
Temp Pulse Resp BP Pulse Ox
98.9 F 90 16 118/77 95
07/19/24 07:05 07/19/24 08:00 07/19/24 07:05 07/19/24 07:05 07/19/24 07:05
I&O
07/18/24 07/19/24 07/20/24
06:59 06:59 06:59
Intake Total 1404.8 / 1404.8 590 / 590
Output Total 2450 / 2450 1450 / 1450
Balance -1045.2 / -1045.2 -860 / -860
Review of Systems
-
All other systems: Reviewed and negative (Exam mentioned)
Psych: Reports Anxious and Other (Difficulty sleeping)
Physical Exam
-
General: No Apparent Distress and Comfortable
HEENT: Normocephalic and Atraumatic
Respiratory: Clear to Auscultation and Chest Tubes (On room air)
Cardiac: Regular Rhythm and S1/S2
GI: Soft, Nontender, Nondistended, Normal Bowel Sounds and Other
Rectal: Brown (Dark 100-120 ml on rectal tube )
Neuro: AO x 3
Psych: Anxious
Data Reviewed
-
Labs: Labs Reviewed by me and Discussed with Physician
[2024-07-19] MEDS: LASIX 40 MG IV (08:28)
[2024-07-19 08:34] LABS: Glucose - Point of Care 193 mg/dl (70-99)
[2024-07-19] MEDS: LANTUS 0.12 UNITS SC (08:34)
[2024-07-19] MEDS: LOW STRENGTH ASPIRIN 81 MG TUBE (08:36)
[2024-07-19] MEDS: PLAVIX 75 MG PO (08:36)
[2024-07-19] MEDS: LOPRESSOR 25 MG PO ×2 (08:36→20:12)
[2024-07-19] MEDS: PACERONE 200 MG PO ×3 (08:37→22:05)
[2024-07-19] MEDS: NSS (PRESERVATIVE FREE) 10 ML IV ×2 (08:37→20:12)
[2024-07-19] MEDS: ZOLOFT 25 MG PO (08:37)
[2024-07-19] MEDS: PROTONIX IV 40 MG IV ×2 (08:38→20:11)
--- NOTE | 2024-07-19 10:21 | PTCARENOTE ---
Assumed care of pt from night RN. Pt received awake and alert, very anxious. VSS, POX 95% on RA. Purewick replaced, BMS intact draining liquid brown stool. Bilateral SED's intact. Ativan 0.25 mg given as per SEP for anxiety. Pt tolerating Full
liquids without difficulty, aspirations precautions maintained. She denies any pain or discomfort at this time.
--- NOTE | 2024-07-19 10:45 | W.PN.GS2 ---
Today's Communication / Plan
-
Adv to FLD, to stay on this diet about 2 weeks
Pls call with ?s
Assessment / Plan
-
Assessment : 83F admitted with type III PEH and recurrent nausea and possible component of gastric outlet obstruction
ST elevated [place] with troponin elevation - now status post cardiac catheterization with angioplasty/ANGEL LUIS placement on IV Cangrelor --> Plavix
Initial NG tube inadvertently dislodged, developed nausea in the interim and now s/p EGD on 07/15 for decompression and NGT placement, no evidence of incarceration or torsion, blood clot seen at apex of duodenal bulb and PPI gtt initiated
Afebrile, intermittent Afib
H/H with acute bloodless and dilutional anemia, stable
UGI on 07/17 with no evidence of an obstruction, presbyesophagus, no ulcerations or masses. NGT removed and started on clears.
Plan for medical management of her PEH with dietary modifications and PPI. High risk for surgical intervention given anticoagulation with antiplatelets and recent NY. Recurrent issues with nausea and vomiting over the next 8 weeks (prompting need
for surgical intervention) would best be addressed with a laparoscopic gastropexy. Would plan on a modified full liquid diet with supplement shakes for the next 2 weeks with advancement back to soft foods if tolerating. Plan for outpatient
follow-up to further discuss and review surgical treatment options. All questions answered. Daughter updated by phone.
Plan:
-- Adv to FLD; DC on fulls with supplement shakes for the next 2 weeks before trials soft food diet
-- OK for PO meds including PLavix, would crush those larger than a Tylenol
-- PPI BID
-- If recurrent issues with nausea or dysphagia would plan on a laparoscopic gastropexy, plan for outpatient follow-up approximately 2-3 weeks following discharge
-- Medical management as per Cardiology
Daughter updated by phone
Subjective Data
-
Date of Service: July 19, 2024
Dneies n/v/abd pain; odin cld
Objective Data
-
Intake and Output
07/18/24 07/19/24 07/20/24
06:59 06:59 06:59
Intake Total 1404.8 / 1404.8 590 / 590
Output Total 2450 / 2450 1450 / 1450 900 / 900
Balance -1045.2 / -1045.2 -860 / -860 -900 / -900
Intake:
Oral fluids 750 / 750 540 / 540
IV fluids (Total) 594.8 / 594.8
Amiodarone 150.3 / 150.3
KCL rider 252.5 / 252.5
Nss 1,000 ml @ 75 mls/hr IV . 0 / 0
[id number] [facility] Rx#:[id number]
Nss 250 ml @ 0.75 MCG/KG/MIN 13 162.0 / 162.0
.518 mls/hr IV .[id number] RMAIR[facility]
with Kengreal 50,000 Mcg Rx#:
[id number]
protonix 30 / 30
Fecal management system 60 / 60 50 / 50
irrigation (mL)
Rectum 60 / 60 50 / 50
Output:
Urine, Voided 2450 / 2450 1450 / 1450 900 / 900
Other:
Number of approximated SMALL 1
amounts of urine
How many times incontinent 1 1
MODERATE amount urine
Vital Signs
Temp Pulse Resp BP Pulse Ox
98.9 F 80 16 118/77 95
07/19/24 07:05 07/19/24 08:36 07/19/24 07:05 07/19/24 08:36 07/19/24 10:03
Lab Results
07/19/24 03:18
07/19/24 03:18
Calcium 8.1 mg/dl (8.4-10.2) L 07/19/24 03:18
Phosphorus 2.1 mg/dl (2.5-4.5) L 07/18/24 03:35
Magnesium 1.9 mg/dl (1.6-2.3) 07/18/24 03:35
Total Bilirubin 0.9 mg/dl (0.2-1.3) 07/18/24 03:35
AST 23 U/L (14-36) 07/18/24 03:35
ALT 17 U/L (0-35) 07/18/24 03:35
Alkaline Phosphatase 65 U/L (38-126) 07/18/24 03:35
Total Protein 4.6 g/dl (6.3-8.2) L 07/18/24 03:35
Albumin 2.5 g/dl (3.5-5.0) L 07/18/24 03:35
Physical Exam
-
Gen: NAd
Abd: soft, nt
--- NOTE | 2024-07-19 10:50 | W.PN.PUL3 ---
Today's Communication / Plan
-
Continue with current care
No pulmonary issues
Signed off
Assessment
-
83yo F with PMH GERD/hiatal hernia, HTN, DM-II who presented to ED 07/12/24 for nausea, vomiting, and chest/back pain which was worsening over 1-2 weeks prior to admission. Initial workup on admission: EKG normal sinus rhythm, troponin negative x2,
CTA no evidence of thoracic aortic aneurysm or dissection, +moderate coronary artery calcification, +large hiatal hernia. She has a known history of hiatal hernia and had a previous EGD on 10/22/[address] Mixon which revealed tortuous esophagus with
possible varices, erythematous mucosa in antrum, and large hiatal hernia with gastric rotation. In ED this admission, NGT unable to be placed initially; NGT placed by GI and surgery on 07/13 but patient subsequently removed. Plan was for NG
decompression and possible upper GI series; however on 07/14 patient had episode of syncope accompanied by EKG changes and positive troponin, for which she underwent cardiac catheterization and PCI. During procedure, she went into torsades de
pointes with spontaneous resolution. Later in day on 07/14 patient had a rapid response called for AMS, for which neurology was consulted. Her head CT was negative for acute stroke, and her head/neck CTA showed patent cahto of penny and cerebral
artery blood flow (only occlusion was right vertebral artery at V3 segment). Cardiology, GI, general surgery, neurology are following. Given that patient is NPO and may require procedure for hiatal hernia, patient anticoagulation was changed to IV
cangrelor and she moved to ICU for monitoring while using new medication.
Transferred to IVU 07/18/2024-pulmonary to follow.
Impression:
#NSTEMI s/p IVUS-guided PCI of proximal and mid LAD with ANGEL LUIS x2 placed complicated by torsades de pointes
#Blood clot seen in duodenal bulb possibly related to multiple failed attempts of NGT placement
#AMS � likely related to anesthesia but TIA/CVA still in differential (although unlikely given negative CT head x2)
#UTI with UCx growing K. pneumonia (R to amp + unasyn; Intermediate to macrobid)
#Nausea/vomiting (vomiting now resolved) with concern for GOO
#Acute decompensated heart failure with elevated proBNP of 18,000 (07/16/2024)
#Atrial fibrillation currently in NSR now on amiodarone
#Large hiatal hernia
#Leukocytosis
#Hyponatremia mild
#Elevated troponin - initially due to ACS and now elevated due to s/p cardiac cath with PCI/ANGEL LUIS (troponin peaked at 7.62 on 07/15/2024)
#History of autoimmune hepatitis
#History of esophageal varices
#Anxiety
Plan:
-
Clinically improved.
Oxygen has been weaned off
Clear lung exam
Denies any pulmonary complaints.
-
Continue with cardiac management.
Antiplatelets
Amiodarone
Diuretics
Monitor electrolytes and renal function. Telemetry monitoring
-
Continue to monitor for GI bleed
Full anticoagulation on hold
Follow hemoglobin
-
Advance diet
Increase activity as able
- S/p cefepime 07/13-07/17. Then transitioned to ancef 07/18/24.
Antibiotics per primary team
Continue to monitor mental status
- Repeat CT head on 07/15/2024 evening showed no acute intracranial pathology
- DVT ppx: LMWH
- Code status:�DNR/DNI
-
No additional recommendation from the pulmonary perspective.
Sign off
Discharge planning per primary team
Subjective Data
-
Date of Service:
Date of Service: July 19, 2024
Chief Complaint: Pulmonary Follow Up (Non-ST elevation myocardial infarction)
Subjective:
Clinically improved
No events overnight
Review of Systems
Cardiopulmonary: Dyspnea (None at rest), Cough (n) and Sputum Production (n)
GI: Abdominal Pain (n)
Objective Data
Data Reviewed
Vital Signs / I&O / Oxygen:
Vital Signs
Temp Pulse Resp BP Pulse Ox
98.9 F 80 16 118/77 95
07/19/24 07:05 07/19/24 08:36 07/19/24 07:05 07/19/24 08:36 07/19/24 10:03
Intake and Output
07/18/24 07/19/24 07/20/24
06:59 06:59 06:59
Intake Total 1404.8 / 1404.8 590 / 590
Output Total 2450 / 2450 1450 / 1450 900 / 900
Balance -1045.2 / -1045.2 -860 / -860 -900 / -900
SaO2 95
Nasal Cannula flow liters per 2
minute
Physical Exam
General: Comfortable
HEENT: Normocephalic
Cardiovascular: S1-S2
Respiratory: Clear and Non-Labored Respirations
GI: Soft and Non Distended
Neurology: Awake and AO x 3
Labs/Micro/Reports
Lab Data
07/19/24 03:18
07/19/24 03:18
--- NOTE | 2024-07-19 12:06 | CM ---
Addendum entered by Shantell Olsen RN 07/19/24 13:54:
Message left with [facility]. [facility] unable to accept patient due to medical complexity
Original Note:
Chart reviewed. Patient is independent of ADLS, lives alone in a ST, ambulates with a RW, currently uses [facility] for PT/OT. PT evaluation recommending SNF. Referrals sent to [facility] and [facility]. Patient said [facility] is
around the corner from her home. Plan is for the patient to go to SNF when medically stable for discharge. CM to follow
--- NOTE | 2024-07-19 12:16 | W.PN.CARDCBS ---
Addendum entered and electronically signed by Deni Alonso DO 07/19/24 13:36:
I saw and examined the patient.
The Anesthesiology Medical Doctor's note was reviewed and I agree with the note.
Comment:
Telemetry sinus rhythm, brief PAT asymptomatic
GEN: NAD. AAOx3, anxious
HEENT: MMM, no clear JVD
LUNGS: RA. No audible wheeze
CV: Regular rate and rhythm, 2/6 systolic murmur SR on tele
ABD: ND
EXT: trace edema B/L
NEURO: Gross non-focal
SKIN: No rash
A/P as below
Medication regimen adjustment with up titration of goal-directed medical therapy
Replete electrolytes as tolerated
Continue amiodarone 200 mg 3 times daily with plan for eventual taper
No anticoagulation at this time given high risk, continue to monitor. Reassessment as outpatient with coordination between cardiology and GI
IV diuresis strict intake and output, daily weights
Original Note:
Today's Communication / Plan
-
Change to Toprol XL starting in AM
Start lisinopril 2.5 mg daily now
Start KCl 10 meq daily
Check ECG
Cont amiodarone 200 mg TID
No OAC due to duodenal clot on EGD
53 min in chart prep, face to face with patient and coordinating care
Impression / Plan
-
PCP: Dr. Fink
Primary Sign Language Teacher: none
Impression:
Presentation with N/V, chest and back pain 07/12/2024
Large paraesophageal hernia
Concern for syncope on commode 07/14/24
NSTEMI 07/14/2024
s/p LAD ANGEL LUIS x 2 overlapping stents (prox Medtronic Олег [place] 2.25 x 26 ANGEL LUIS, mid LAD Medtronic [place] 2.0 x 18 ANGEL LUIS)
Sinus tachycardia
Hyponatremia
HTN
HLD
GERD/hiatal hernia
Anxiety
Diabetes
History of esophageal varices
Cardiac catheterization 07/14/2024: LM: Patent. LAD proximal 70% with additional proximal 70 to 80% hazy stenosis/thrombosis, mid 70%, (status post emergent prox Medtronic Олег [place] 2.25 x 26 ANGEL LUIS, mid LAD Med[employer]onic [place] 2.0 x 18 ANGEL LUIS) .
Diagonal 70% ostial and 70% proximal. Circumflex: Patent. RCA: LI
Echo 07/14/2024: EF 45% with mild concentric LVH. Moderately reduced LV systolic function with anteroseptal and apical hypokinesis. Moderately enlarged LA. Mild MR, mild AAS with peak/mean gradient 12/8 mmHg. Mild to moderate TR, moderate
pulmonary hypertension with PAP 47 mmHg
Plan:
-Hospital course thus far: Patient came to [facility] with chest pain and N/V on 07/12/24 and was admitted with GOO and large paraesophageal hernia. Troponin undetectable x 2 and ECG without ischemic changes on 07/12/2024. NGT initially difficult to
place with multiple attempts and then ultimately successful on 07/13/2024. Patient then had a rapid response for possible syncope on 07/14/2024 and ECG was newly abnormal and troponin was now positive at 3.43. Echo as noted above. Patient was
taken to [employer] [facility] that day and had LAD intervention as noted above. During LAD intervention patient briefly had torsades, but spontaneously converted to SR prior to getting shocked. Postprocedure there was a stroke alert called, but CT of the head
has been repeatedly unremarkable and neurologic changes are felt to be due to TME that resolved. The previously placed NGT fell out and GI saw patient for EGD on 07/15/24 which showed moderately tortuous distal esophagus and a large hiatal hernia,
there was also a blood clot in the duodenal bulb and the NGT was able to be placed. Since then patient was able to complete UGI series on 07/17/2024 and there was no evidence of obstruction so NGT could be removed and patient is now on liquid diet.
During period of time while NGT was in place and patient was NPO she was managed with cangrelor and aspirin HI, but now that NGT has been removed patient is tolerating aspirin 81 mg PO daily and Plavix 75 mg daily. Patient also noted to have newly
diagnosed paroxysmal A-fib, but due to blood clot the duodenal bulb seen on EGD 07/15/2024 she has not been started on OAC.
-Chest pain free on 07/19/24. Tolerating PO doses of aspirin and Plavix.
-EF 45% by echo 07/14/24 and Troponin peaked at 7.62.
-Outpatient doses of atenolol 25 mg HS and propranolol 60 mg HS has been stopped and patient was started on Lopressor 25 mg BID, nursing report patient can swallow whole pills so will change to Toprol XL 25 mg daily starting 07/19/24. Also it's
interesting that she was taking atenolol and propranolol as an outpatient.
-Agree with hospitalist on starting JAMILAH, will start lisinopril 2.5 mg daily 07/19/24. Follow labs and BP
-Patient is not a candidate for cardiac rehab due to need for PT/OT
-LDL 96. Outpatient dose of atorvastatin increased to 40 mg daily.
-Weight is overall up 9 lbs this admission. Lasix 40 mg IV daily started 07/17/24. Patient was not taking a diuretic prior to admission.
-Potassium is low normal at 3.5 on 07/19/24, will start KCl 10 meq daily.
-Patient with newly diagnosed paroxysmal Afib this admission. Tele reviewed by me 07/19/24 looks like SR. Cont amiodarone 200 mg TID, has received a 1.2 gram load as of 07/19/24 AM.
-Check ECG to monitor QTc now that patient is in SR on 07/19/24
Progress Note - Sign Language Teacher
Subjective
Date of Service: July 19, 2024
Feels well, denies chest pain
Objective
Labs:
07/19/24 03:18
07/19/24 03:18
Labs
Hgb 10.8 g/dL (12.0-16.0) L 07/19/24 03:18
Hct 31.8 % (37.0-47.0) L 07/19/24 03:18
Plt Count 325 10^3/uL (130-400) 07/19/24 03:18
PT 14.0 Sec (11.4-14.6) 07/14/24 19:48
INR 1.03 07/14/24 19:48
APTT 59.3 Sec (23.4-35.0) H 07/14/24 19:48
Sodium 131 mmol/L (135-145) L 07/19/24 03:18
Potassium 3.5 mmol/L (3.5-5.1) 07/19/24 03:18
BUN 16 mg/dl (7-17) 07/19/24 03:18
Creatinine 0.6 mg/dL (0.6-1.0) 07/19/24 03:18
Glucose 155 mg/dl (70-99) H 07/19/24 03:18
Vital Signs and I&O:
Vital Signs
Temp Pulse Resp BP Pulse Ox
97.6 F 80 16 118/77 95
07/19/24 11:44 07/19/24 08:36 07/19/24 11:44 07/19/24 08:36 07/19/24 11:44
Vital Signs
Temp Pulse Resp BP Pulse Ox
97.6 F 80 16 118/77 95
07/19/24 11:44 07/19/24 08:36 07/19/24 11:44 07/19/24 08:36 07/19/24 11:44
Intake & Output
07/17/24 07/18/24 07/19/24 07/20/24
06:59 06:59 06:59 06:59
Intake Total 2850.0 / 2957.7 1404.8 / 1404.8 590 / 590
Output Total 500 / 500 2450 / 2450 1450 / 1450 1500 / 1500
Balance 2350.0 / 2457.7 -1045.2 / -1045.2 -860 / -860 -1500 / -1500
Physical Exam
Physical Exam
GEN: NAD. AAOx3
HEENT: MMM
LUNGS: RA. No audible wheeze
CV: SR on tele
ABD: ND
EXT: No edema B/L
NEURO: Gross non-focal
SKIN: No rash
[2024-07-19 13:49] LABS: Glucose - Point of Care 238 mg/dl (70-99)
[2024-07-19] MEDS: ZESTRIL 2.5 MG PO (13:50)
[2024-07-19] MEDS: NOVOLOG FLEXPEN-MODERATE RESISTANCE 3 UNITS SC (13:50)
[2024-07-19] MEDS: KCL 10 MEQ PO (13:52)
--- NOTE | 2024-07-19 14:21 | PN.CDI ---
CDI
- -
CDI:
Physician Documentation Request
Admit Date: 07/12/24 06:29
Dear Doctor Abhay,
Please review the following and provide your response in the progress notes.
The purpose of this query is to ensure the accuracy of the conditions reported for your patient.
Clinical indicators:
Cardiology, PN, 07/19
#NSTEMI 07/14/2024
#s/p LAD ANGEL LUIS x 2 overlapping stents (prox Medtronic [place] 2.25 x 26 ANGEL LUIS, mid #...LAD Medtronic Олег [place] 2.0 x 18 ANGEL LUIS)
PN, 07/19
#STEMI s/p LAD PCI x 2 with coronary dissection during intervention.
Please clarify the following regarding the documented myocardial infarction:
NSTEMI
STEMI
Other (please clarify)
Extent of SD
STEMI - indicate the location and vessel involved
NSTEMI - subendocardial, nontransmural
Use of terms such as suspected, likely, concern for, or probable (associated with a specific diagnosis that is being evaluated, monitored, or treated as if it exists) are acceptable and can be coded in the inpatient setting, when documented at the
time of discharge.
Thank you,
Jasmyn Renteria RN BSN CCDS
CDI Specialist
please contact via tiger text
Please use your independent medical judgment in providing your response.
--- NOTE | 2024-07-19 14:28 | PN.CDI ---
CDI
- -
CDI:
Physician Documentation Request
Admit Date: 07/12/24 06:29
Dear Doctor Abhay,
Please review the following and provide your response in the progress notes.
Clinical Indicators:
Cardiology, PN, 07/19
#IV diuresis strict intake and output, daily weights
#-EF 45% by echo 07/14/24 and Troponin peaked at 7.62.
#-Weight is overall up 9 lbs this admission.
#...Lasix 40 mg IV daily started 07/17/24.
#...Patient was not taking a diuretic prior to admission.
PN, 07/19
#No signs of clinical HFrEF at this time despite reduced systolic function.
#...Has been receiving IV Lasix for volume status at cardiology's discretion.
#...As of this morning she appears fairly euvolemic.
#Will defer standing loop diuretic regimen to cardiology.
#HFmrEF
#IV Lasix 40 daily
Based on the above and your clinical assessment, please clarify the most likely condition/diagnosis evaluated, treated and/or monitored.
Acute on Chronic Systolic CHF
Acute on Chronic Diastolic CHF
Chronic Systolic CHF
Chronic Diastolic CHF
Volume Overload Only
Other (please specify)
Type Acuity
Systolic Acute
Diastolic Chronic
Combined Systolic/Diastolic Acute on Chronic
Use of terms such as suspected, likely, concern for, or probable (associated with a specific diagnosis that is being evaluated, monitored, or treated as if it exists) are acceptable and can be coded in the inpatient setting, when documented at the
time of discharge.
Thank you,
Jasmyn Renteria RN BSN CCDS
CDI Specialist
please contact via tiger text
Please use your independent medical judgment in providing your response.
[2024-07-19 17:07] LABS: Glucose - Point of Care 311 mg/dl (70-99)
[2024-07-19] MEDS: LIPITOR 40 MG PO (17:24)
[2024-07-19] MEDS: LOVENOX 40 MG SC (17:26)
[2024-07-19] MEDS: NOVOLOG FLEXPEN-MODERATE RESISTANCE 7 UNITS SC (17:28)
[2024-07-19] MEDS: ATIVAN 0.5 MG IV (22:06)
[2024-07-19 22:35] LABS: Glucose - Point of Care 255 mg/dl (70-99)
[2024-07-20] VITALS (7 sets, daily range): BP systolic 109–131; BP diastolic 65–97; BMI 29.4
--- NOTE | 2024-07-20 04:41 | PTCARENOTE ---
Rec'd pt at change of shift. Pt denies any pain or discomfort. Pt with VSS, on TELE monitor in NSR, and AAO*3. Pt currently resting with call juarez in reach. Plan of care ongoing.
--- NOTE | 2024-07-20 08:37 | W.PN.HOSP.TC ---
Today's Communication/Plan
-
Planning on discharge to SNF , CM on board, looking at different facilities for bed availability. Waiting on response from [facility]. Potential discharge on 07/21 or 07/22.
Transition to PO protonix 40 mg BID
Start Trazodone 25 mg for anxiety
Continue DAPT, statin, beta-ron
Newly added lisinopril 2.5 mg
Continue 200 mg amiodarone TID
Ativan 0.5 IV as needed
Assessment / Plan
Assessment / Plan
Impression
NSTEMI s/p PCI of proximal LAD
HFmrEF
Paraesophageal hernia
Atrial fibrillation with rapid ventricular response
Duodenal clot
Toxic metabolic encephalopathy
Hyperglycemia
Klebsiella UTI
Hypertension
Anxiety
Hyperlipidemia
Assessment and plan
NSTEMI s/p PCI of proximal LAD
Downgrade to IVU
Continue DAPT
Cardiac rehab
Monitor on telemetry
HFmrEF
GDMT therapy with beta-ron, newly added JAMILAH inhibitor (lisinopril 2.5)
IV Lasix 40 daily
May transition to 40 mg PO QD by tomorrow indiscretion per cards
LVEF 45%
GDMT therapy-consider starting on JAMILAH
Continue metoprolol
Paraesophageal hernia
S/p EGD, large hiatal hernia blood clot is present in the duodenal
Upper GI series showing no gastric outlet obstruction
Patient is tolerating clear liquids
Advance diet to fulls and supplement shakes today per surgery
Plan to DC to SNF on the same for 2 weeks before starting soft food diet per surgery.
Continue PPI IV twice daily, can transition to p.o. since no obstruction
Avoid NSAIDs
Duodenal clot
Hemoglobin 9.9<10.5
Continue to monitor H&H
GI following
Avoid NSAIDs
Hold AC
Atrial fibrillation with RVR
New onset
[id number] score 3. In sinus rhythm
Continue amiodarone PO 200 mg TID with plan for eventual taper per cardiology
Continue metoprolol
Continue to monitor on telemetry
Per cardiology patient will not likely tolerate anticoagulation due to presence of duodenal clot
Klebsiella UTI
Urine culture positive for Klebsiella pneumonia
Sensitive for cefazolin and ciprofloxacin gentamicin Pepto as, tetracycline Bactrim
Switched to cefazolin IV
Toxic metabolic encephalopathy
Ativan as needed
Neurology following
Hyperglycemia
Lantus 10 units
Sliding scale
Monitor blood glucose level
Hypertension
Continue p.o. metoprolol
Anxiety
Restart sertraline 25 mg PO
IV lorazepam 0.5 every 8h as needed
STart trazodone 25 mg HS
Hyperlipidemia
On Lipitor 40 mg
CODE STATUS DNR
Diet clear liquids
DVT prophylaxis-SCD
Disposition-SNF, CM on board, looking at different facilities for bed availability. Waiting on response from [facility].
Anticipated Discharge: 24 - 48 hours
Subjective/Interval History
-
Date of Service: July 20, 2024
Patient reports of being anxious until 3 AM however she slept well after that. She was given 0.5 mg of Ativan last night. Patient states that she is feeling anxious because of being in the hospital during the holidays. She states that her health
declined very quickly which she did not expect which also keeps her awake thinking at night.
Objective Data
-
Labs:
Laboratory Results
07/20/24
08:36
Sodium Pending
Potassium Pending
Chloride Pending
Carbon Dioxide Pending
BUN Pending
Creatinine Pending
Glucose Pending
Calcium Pending
Vital Signs:
Vital Signs
Temp Pulse Resp BP Pulse Ox
98 F 84 18 125/65 98
07/20/24 07:34 07/20/24 07:35 07/20/24 07:34 07/20/24 07:35 07/20/24 07:34
I&O
07/19/24 07/20/24 07/21/24
06:59 06:59 06:59
Intake Total 590 / 590 240 / 240
Output Total 1450 / 1450 1999 / 1999
Balance -860 / -860 -1760 / -1760
Review of Systems
-
All other systems: Reviewed and negative
Physical Exam
-
General: No Apparent Distress and Comfortable
HEENT: Normocephalic and Atraumatic
Respiratory: Clear to Auscultation
Cardiac: Regular Rhythm
GI: Soft, Nontender, Nondistended and Normal Bowel Sounds
Musculoskeletal: No Edema
Psych: Calm
Data Reviewed
-
Labs: Labs Reviewed by me and Discussed with Physician
[2024-07-20 08:50] LABS: Glucose - Point of Care 165 mg/dl (70-99)
[2024-07-20] MEDS: PLAVIX 75 MG PO (09:11)
[2024-07-20] MEDS: NOVOLOG FLEXPEN-MODERATE RESISTANCE 1 UNITS SC ×2 (09:11→13:13)
[2024-07-20] MEDS: TOPROL XL 25 MG PO (09:12)
[2024-07-20] MEDS: PACERONE 200 MG PO ×3 (09:15→21:41)
[2024-07-20] MEDS: KCL 10 MEQ PO (09:15)
[2024-07-20] MEDS: ZOLOFT 25 MG PO (09:16)
[2024-07-20] MEDS: LANTUS 0.12 UNITS SC (09:16)
[2024-07-20] MEDS: LOW STRENGTH ASPIRIN 81 MG TUBE (09:16)
[2024-07-20] MEDS: LASIX 40 MG IV (09:17)
[2024-07-20] MEDS: NSS (PRESERVATIVE FREE) 10 ML IV (09:18)
[2024-07-20] MEDS: ZESTRIL 2.5 MG PO (09:19)
[2024-07-20] MEDS: PROTONIX IV 40 MG IV (09:19)
[2024-07-20 09:29] LABS: Blood Urea Nitrogen 11 mg/dl (7-17); Calcium 8.6 mg/dl (8.4-10.2); Carbon Dioxide 35 mmol/L (22-30); Chloride 93 mmol/L (98-107); Estimated Creatinine Clearance 55 ml/min; Glucose 162 mg/dl (70-99); Potassium 3.6 mmol/L (3.5-5.1); Sodium 132 mmol/L (135-145); eGFR > 60.00
--- NOTE | 2024-07-20 10:14 | PTCARENOTE ---
Assumed care of pt from night RN. Pt received awake and alert, Ox3. VSs, CM shows NSR 80's, POX 98% on RA. Purewick in place draining es urine, QS. Rectal tube intact, draining liquid brown stool. Pt offers no c/o pain or discomfort.
Enjoying full liquids! Taking in 100% of meals. Anxiety is much less today. Chatting on phone with friends and family.
[2024-07-20] MEDS: ATIVAN 0.5 MG IV (11:08)
--- NOTE | 2024-07-20 11:17 | W.PN.CARDCBS ---
Today's Communication / Plan
-
Agree with addition of JAMILAH inhibitor
Amio taper per impression/plan
Transition to oral diuretic therapy
Monitor on telemetry
Impression / Plan
-
PCP: Dr. Fink
Primary Liquefaction Supervisor: none
Impression:
Presentation with N/V, chest and back pain 07/12/2024
Large paraesophageal hernia
Concern for syncope on commode 07/14/24
NSTEMI 07/14/2024
s/p LAD ANGEL LUIS x 2 overlapping stents (prox Medtronic Олег [place] 2.25 x 26 ANGEL LUIS, mid LAD Medtronic [place] 2.0 x 18 ANGEL LUIS)
Sinus tachycardia
Hyponatremia
HTN
HLD
GERD/hiatal hernia
Anxiety
Diabetes
History of esophageal varices
Cardiac catheterization 07/14/2024: LM: Patent. LAD proximal 70% with additional proximal 70 to 80% hazy stenosis/thrombosis, mid 70%, (status post emergent prox Medtronic [place] 2.25 x 26 ANGEL LUIS, mid LAD Medtronic [place] 2.0 x 18 ANGEL LUIS) .
Diagonal 70% ostial and 70% proximal. Circumflex: Patent. RCA: LI
Echo 07/14/2024: EF 45% with mild concentric LVH. Moderately reduced LV systolic function with anteroseptal and apical hypokinesis. Moderately enlarged LA. Mild MR, mild AAS with peak/mean gradient 12/8 mmHg. Mild to moderate TR, moderate
pulmonary hypertension with PAP 47 mmHg
Plan:
-Hospital course thus far: Patient came to [facility] with chest pain and N/V on 07/12/24 and was admitted with GOO and large paraesophageal hernia. Troponin undetectable x 2 and ECG without ischemic changes on 07/12/2024. NGT initially difficult to
place with multiple attempts and then ultimately successful on 07/13/2024. Patient then had a rapid response for possible syncope on 07/14/2024 and ECG was newly abnormal and troponin was now positive at 3.43. Echo as noted above. Patient was
taken to [facility] [employer] [facility] that day and had LAD intervention as noted above. During LAD intervention patient briefly had torsades, but spontaneously converted to SR prior to getting shocked. Postprocedure there was a stroke alert called, but CT of the head
has been repeatedly unremarkable and neurologic changes are felt to be due to TME that resolved. The previously placed NGT fell out and GI saw patient for EGD on 07/15/24 which showed moderately tortuous distal esophagus and a large hiatal hernia,
there was also a blood clot in the duodenal bulb and the NGT was able to be placed. Since then patient was able to complete UGI series on 07/17/2024 and there was no evidence of obstruction so NGT could be removed and patient is now on liquid diet.
During period of time while NGT was in place and patient was NPO she was managed with cangrelor and aspirin IA, but now that NGT has been removed patient is tolerating aspirin 81 mg PO daily and Plavix 75 mg daily. Patient also noted to have newly
diagnosed paroxysmal A-fib, but due to blood clot the duodenal bulb seen on EGD 07/15/2024 she has not been started on OAC.
-Chest pain free on 07/19/24. Tolerating PO doses of aspirin and Plavix.
-EF 45% by echo 07/14/24 and Troponin peaked at 7.62.
-Outpatient doses of atenolol 25 mg HS and propranolol 60 mg HS has been stopped and patient was started on Lopressor 25 mg BID, nursing report patient can swallow whole pills so will change to Toprol XL 25 mg daily starting 07/19/24. Also it's
interesting that she was taking atenolol and propranolol as an outpatient.
-Agree with hospitalist on starting JAMILAH, will start lisinopril 2.5 mg, Follow labs and BP
-Patient is not a candidate for cardiac rehab due to need for PT/OT
-LDL 96. Outpatient dose of atorvastatin increased to 40 mg daily.
-Weight is overall up 9 lbs this admission. Lasix 40 mg IV daily started 07/17/24. Patient was not taking a diuretic prior to admission. can change to 40 mg PO daily, monitor response
-Potassium is low normal at 3.5 on 07/19/24, will start KCl 10 meq daily.
-Patient with newly diagnosed paroxysmal Afib this admission. Tele reviewed by me 07/19/24 looks like SR. Cont amiodarone 200 mg TID, has received a 1.2 gram load as of 07/19/24 AM, recommend taper 200 mg BID on DC for 1 week then 200 mg daily.
patient will need TFT/PFT/LFT and eye exams yearly while on amiodarone to be performed by PCP
-Check ECG to monitor QTc now that patient is in SR on 07/19/24
Progress Note - Liquefaction Supervisor
Subjective
Date of Service: July 20, 2024
Patient seen and examined. No acute events overnight. Patient resting comfortably in bed reporting no chest pain, shortness of breath palpitations or weakness. Patient with an additional 1.7 L output over 24 hours. Telemetry demonstrating sinus
rhythm with occasional PAC/PVC.
Objective
Labs:
07/19/24 03:18
07/20/24 08:57
Labs
Hgb 10.8 g/dL (12.0-16.0) L 07/19/24 03:18
Hct 31.8 % (37.0-47.0) L 07/19/24 03:18
Plt Count 325 10^3/uL (130-400) 07/19/24 03:18
PT 14.0 Sec (11.4-14.6) 07/14/24 19:48
INR 1.03 07/14/24 19:48
APTT 59.3 Sec (23.4-35.0) H 07/14/24 19:48
Sodium 132 mmol/L (135-145) L 07/20/24 08:57
Potassium 3.6 mmol/L (3.5-5.1) 07/20/24 08:57
BUN 11 mg/dl (7-17) 07/20/24 08:57
Creatinine 0.6 mg/dL (0.6-1.0) 07/20/24 08:57
Glucose 162 mg/dl (70-99) H 07/20/24 08:57
Vital Signs and I&O:
Vital Signs
Temp Pulse Resp BP Pulse Ox
98 F 90 18 125/65 98
07/20/24 07:34 07/20/24 09:15 07/20/24 07:34 07/20/24 09:15 07/20/24 10:04
Vital Signs
Temp Pulse Resp BP Pulse Ox
98 F 90 18 125/65 98
07/20/24 07:34 07/20/24 09:15 07/20/24 07:34 07/20/24 09:15 07/20/24 10:04
Intake & Output
07/18/24 07/19/24 07/20/24 07/21/24
06:59 06:59 06:59 06:59
Intake Total 1404.8 / 1404.8 590 / 590 240 / 240
Output Total 2450 / 2450 1450 / 1450 1999 / 1999
Balance -1045.2 / -1045.2 -860 / -860 -1760 / -1760
Physical Exam
Physical Exam
GEN: NAD. AAOx3
HEENT: MMM
LUNGS: RA. No audible wheeze
CV: SR on tele
ABD: ND
EXT: No edema B/L
NEURO: Gross non-focal
SKIN: No rash
--- NOTE | 2024-07-20 11:19 | PTCARENOTE ---
Ativan 0.5mg given as per MAR for anxiety.
[2024-07-20] MEDS: NSS (PRESERVATIVE FREE) 0.25 ML IV (11:22)
[2024-07-20 13:12] LABS: Glucose - Point of Care 184 mg/dl (70-99)
[2024-07-20] MEDS: LIPITOR 40 MG PO (17:28)
[2024-07-20] MEDS: LOVENOX 40 MG SC (17:28)
[2024-07-20] MEDS: NOVOLOG FLEXPEN-MODERATE RESISTANCE 3 UNITS SC (17:38)
[2024-07-20 17:44] LABS: Glucose - Point of Care 228 mg/dl (70-99)
[2024-07-20] MEDS: PROTONIX 40 MG PO (19:33)
[2024-07-20 20:53] LABS: Glucose - Point of Care 271 mg/dl (70-99)
[2024-07-20] MEDS: DESYREL 25 MG PO (21:42)
[2024-07-21] MEDS: ATIVAN 0.5 MG IV (00:47)
--- NOTE | 2024-07-21 01:53 | PTCARENOTE ---
Rec'd pt at change of shift. Pt on TELE monitor in NSR with VSS and AAO*3 but anxious at times. Pt denies any pain or discomfort. Pt resting with call juarez in reach. Plan of care ongoing.
[2024-07-21 04:56] VITALS: BP 122/79
[2024-07-21 05:34] LABS: % Basophils 0.6 % (0-2); % Eosinophils 3.6 % (0-6); % Immature Granulocytes 1.4 % (0-0.5); % Lymphocytes 25.7 % (20.5-51.1); % Monocytes 14.6 % (1.7-9.3); % Neutrophils 54.1 % (42.2-75.2); Absolute Basophils 0.1 10^3/uL (0-0.2); Absolute Eosinophils 0.4 10^3/uL (0-0.7); Absolute Immature Granulocytes 0.1 10^3/uL (0-0.05); Absolute Lymphocytes 2.6 10^3/uL (1.2-3.4); Absolute Monocytes 1.5 10^3/uL (0.1-0.6); Absolute Neutrophils 5.4 10^3/uL (1.4-6.5); Hematocrit 33.3 % (37.0-47.0); Mean Corpuscular Volume 90.7 fL (81.0-99.0); Nucleated Red Blood Cells % 0 %; Platelet Count 397 10^3/uL (130-400); Red Blood Cell Count 3.67 10^6/uL (4.20-5.40); Red Cell Dist. Width 12.9 % (11.5-14.5)
[2024-07-21 06:00] VITALS: BMI 29.5
[2024-07-21 07:35] VITALS: BP 124/68
--- NOTE | 2024-07-21 08:10 | W.PN.HOSP.TC ---
Today's Communication/Plan
-
DC rectal tube
Plan to DC today/tomorrow, await on response from [facility]
DC on full liquid and shakes for 2 more weeks. Thereafter, soft food diet
Dispo meds-
Metoprolol 25 mg daily
Lisinopril 2.5mg daily
Lasix 40 mg daily
Amiodarone 200 mg twice daily for 1 week then 200 mg daily
Aspirin 81 mg Plavix 75 mg
Pantoprazole 40 mg twice daily
Continue home antianxiety medication
Assessment / Plan
Assessment / Plan
Impression
NSTEMI s/p PCI of proximal LAD
HFmrEF
Paraesophageal hernia
Atrial fibrillation with rapid ventricular response
Duodenal clot
Toxic metabolic encephalopathy
Hyperglycemia
Klebsiella UTI
Hypertension
Anxiety
Hyperlipidemia
Assessment and plan
NSTEMI s/p PCI of proximal LAD
Downgrade to IVU
Continue DAPT
Cardiac rehab
Monitor on telemetry
HFmrEF
GDMT therapy with beta-ron, newly added JAMILAH inhibitor (lisinopril 2.5)
Switch to oral Lasix 40 mg daily
LVEF 45%
GDMT therapy-consider starting on JAMILAH
Continue metoprolol
Paraesophageal hernia
S/p EGD, large hiatal hernia blood clot is present in the duodenal
Upper GI series showing no gastric outlet obstruction
Advance diet to fulls and supplement shakes today per surgery
Plan to DC to SNF on the same for 2 weeks before starting soft food diet per surgery.
Continue PPI IV twice daily, can transition to p.o. since no obstruction
Avoid NSAIDs
Duodenal clot
Hemoglobin 9.9<10.5
Continue to monitor H&H
GI following
Avoid NSAIDs
Hold AC
Atrial fibrillation with RVR
New onset
[id number] score 3. In sinus rhythm
Continue amiodarone PO 200 mg TID with plan for eventual taper per cardiology
Continue metoprolol
Continue to monitor on telemetry
Per cardiology patient will not likely tolerate anticoagulation due to presence of duodenal clot
Klebsiella UTI
Urine culture positive for Klebsiella pneumonia
Sensitive for cefazolin and ciprofloxacin gentamicin Pepto as, tetracycline Bactrim
Switched to cefazolin IV
Toxic metabolic encephalopathy
Ativan as needed
Neurology following
Hyperglycemia
Lantus 10 units
Sliding scale
Monitor blood glucose level
Hypertension
Continue p.o. metoprolol
Anxiety
Restart sertraline 25 mg PO
IV lorazepam 0.5 every 8h as needed
STart trazodone 25 mg HS
Hyperlipidemia
On Lipitor 40 mg
CODE STATUS DNR
Diet clear liquids
DVT prophylaxis-SCD
Disposition-SNF, on board, looking at different facilities for bed availability. Waiting on response from [facility].
Anticipated Discharge: 24 - 48 hours
Subjective/Interval History
-
Date of Service: July 21, 2024
Patient reports of being anxious.
Objective Data
-
Labs:
Laboratory Results
07/21/24 07/21/24
05:06 06:20
WBC 10.0
Hgb 11.0 L
Hct 33.3 L
Plt Count 397 D
Sodium Cancelled Pending
Potassium Cancelled Pending
Chloride Cancelled Pending
Carbon Dioxide Cancelled Pending
BUN Cancelled Pending
Creatinine Cancelled Pending
Glucose Cancelled Pending
Calcium Cancelled Pending
Total Bilirubin Cancelled Pending
AST Cancelled Pending
ALT Cancelled Pending
Alkaline Phosphatase Cancelled Pending
Vital Signs:
Vital Signs
Temp Pulse Resp BP Pulse Ox
97.9 F 81 20 122/79 92
07/21/24 07:32 07/21/24 06:00 07/21/24 07:32 07/21/24 04:56 07/21/24 07:32
I&O
07/20/24 07/21/24 07/22/24
06:59 06:59 06:59
Intake Total 240 / 240 720 / 720
Output Total 1999 / 1999 2800 / 2800
Balance -1760 / -1760 -2079 / -2079
Review of Systems
-
All other systems: Reviewed and negative (Except mentioned)
Psych: Reports Anxious
Physical Exam
-
General: No Apparent Distress and Comfortable
HEENT: Normocephalic and Atraumatic
Respiratory: Clear to Auscultation
Cardiac: Regular Rhythm
GI: Soft, Nontender, Nondistended and Normal Bowel Sounds
Rectal: Brown (Dark)
Musculoskeletal: No Edema
Neuro: AO x 3
Psych: Calm
Data Reviewed
-
Labs: Labs Reviewed by me and Discussed with Physician
[2024-07-21 08:45] LABS: ALT (SGPT) 20 U/L (0-35); AST (SGOT) 36 U/L (14-36); Albumin 2.9 g/dl (3.5-5.0); Alkaline Phosphatase 108 U/L (38-126); Blood Urea Nitrogen 13 mg/dl (7-17); Calcium 8.6 mg/dl (8.4-10.2); Carbon Dioxide 33 mmol/L (22-30); Chloride 92 mmol/L (98-107); Estimated Creatinine Clearance 55 ml/min; Glucose 152 mg/dl (70-99); Potassium 4.1 mmol/L (3.5-5.1); Sodium 131 mmol/L (135-145); Total Bilirubin 0.6 mg/dl (0.2-1.3); Total Protein 5.2 g/dl (6.3-8.2); eGFR > 60.00
[2024-07-21] MEDS: LASIX 40 MG PO (09:08)
[2024-07-21] MEDS: ZESTRIL 2.5 MG PO (09:08)
[2024-07-21] MEDS: PROTONIX 40 MG PO (09:08)
[2024-07-21] MEDS: PLAVIX 75 MG PO (09:08)
[2024-07-21] MEDS: LOW STRENGTH ASPIRIN 81 MG TUBE (09:09)
[2024-07-21] MEDS: ZOLOFT 25 MG PO (09:09)
[2024-07-21] MEDS: PACERONE 200 MG PO (09:11)
[2024-07-21] MEDS: KCL 10 MEQ PO (09:12)
[2024-07-21 09:25] LABS: Glucose - Point of Care 168 mg/dl (70-99)
[2024-07-21] MEDS: NOVOLOG FLEXPEN-MODERATE RESISTANCE 1 UNITS SC ×2 (09:25→12:10)
--- NOTE | 2024-07-21 09:34 | W.PN.CARDCBS ---
Addendum entered and electronically signed by Jarod Aiken MD 07/21/24 10:46:
Attending addendum: Patient seen and examined. PA note reviewed and findings confirmed by me.
-Paroxysmal atrial fibrillation:
Ideally she should be on oral anticoagulation for [id number] score of 6.
Not felt to be a candidate for OAC at this time. Eventually would defer to GI for input if/when it will be safe
On amiodarone 200mg bid for 1 week then 200mg daily
Rhythm-star for 30 day would be reasonable
IF there is ever thought of adding DOAC then drop aspirin and continue clopidogrel
GI prophylaxis
-Acute coronary syndrome:
s/p overlapping Олег 2.25 x 26 mm and 2.0 x 18 mm stents in mid LAD
Continue aspirin and Plavix.
IF there is ever thought of adding DOAC then drop aspirin and continue clopidogrel
GI prophylaxis
-Large paraesophageal hernia:
Now taking PO's
tolerating aspirin and clopidogrel
-Mixed hyperlipidemia
Continue statin : goal LDL < 70
-Ultimate disposition is to [facility] for rehab
Original Note:
Today's Communication / Plan
-
continue asa, plavix
consider for OP cardiac monitoring given PAF and inability to take OAC at present
continue toprol, lisinopril. consider addition of low dose aldactone
lasix 40mg daily
BMP/proBNP in 1 week
lipitor 40mg daily
SNF upon DC
OP cardiac follow up arranged
Impression / Plan
-
PCP: Dr. Fink
Primary Psychology Associate: Dr. Estrada
Impression:
Presentation with N/V, chest and back pain 07/12/2024
Large paraesophageal hernia
Concern for syncope on commode 07/14/24
NSTEMI 07/14/2024
s/p LAD ANGEL LUIS x 2 overlapping stents (prox Medtronic [place] Casey 2.25 x 26 ANGEL LUIS, mid LAD Medtronic [place] frontier 2.0 x 18 ANGEL LUIS)
Paroxysmal atrial fibrillation
Sinus tachycardia
Hyponatremia
HTN
HLD
GERD/hiatal hernia
Anxiety
Diabetes
History of esophageal varices
Cardiac catheterization 07/14/2024: LM: Patent. LAD proximal 70% with additional proximal 70 to 80% hazy stenosis/thrombosis, mid 70%, (status post emergent prox Medtronic Олег Casey 2.25 x 26 ANGEL LUIS, mid LAD Medtronic Олег frontier 2.0 x 18 ANGEL LUIS) .
Diagonal 70% ostial and 70% proximal. Circumflex: Patent. RCA: LI
Echo 07/14/2024: EF 45% with mild concentric LVH. Moderately reduced LV systolic function with anteroseptal and apical hypokinesis. Moderately enlarged LA. Mild MR, mild with peak/mean gradient 12/8 mmHg. Mild to moderate TR, moderate
pulmonary hypertension with PAP 47 mmHg
Plan:
-Hospital course thus far: Patient came to [facility] with chest pain and N/V on 07/12/24 and was admitted with GOO and large paraesophageal hernia. Troponin undetectable x 2 and ECG without ischemic changes on 07/12/2024. NGT initially difficult to
place with multiple attempts and then ultimately successful on 07/13/2024. Patient then had a rapid response for possible syncope on 07/14/2024 and ECG was newly abnormal and troponin was now positive at 3.43. Echo as noted above. Patient was
taken to [facility] that day and had LAD intervention as noted above. During LAD intervention patient briefly had torsades, but spontaneously converted to SR prior to getting shocked. Postprocedure there was a stroke alert called, but CT of the head
has been repeatedly unremarkable and neurologic changes are felt to be due to TME that resolved. The previously placed NGT fell out and GI saw patient for EGD on 07/15/24 which showed moderately tortuous distal esophagus and a large hiatal hernia,
there was also a blood clot in the duodenal bulb and the NGT was able to be placed. Since then patient was able to complete UGI series on 07/17/2024 and there was no evidence of obstruction so NGT could be removed and patient is now on liquid diet.
During period of time while NGT was in place and patient was NPO she was managed with cangrelor and aspirin [place], but now that NGT has been removed patient is tolerating aspirin 81 mg PO daily and Plavix 75 mg daily. Patient also noted to have newly
diagnosed paroxysmal A-fib, but due to blood clot the duodenal bulb seen on EGD 07/15/2024 she has not been started on OAC.
-She remains chest pain-free.
-Troponin peaked at 7.6. Status post LAD PCI
-Continue aspirin, Plavix
-Echocardiogram with EF 45% 07/14/2024
-As outpatient patient was on atenolol as well as propranolol? Both have been stopped. She has been transition to Toprol XL 25 mg daily.
-She remains in sinus rhythm on review of telemetry overnight. Continue p.o. Amio. Plan for 200 mg twice daily for 1 week then 200 mg daily upon DC
-She is not on anticoagulation due to blood clot of duodenal bulb seen on EGD 07/15
-Will discuss with EP benefit of possible outpatient cardiac monitoring with rhythm star versus Linq
-Continue lisinopril 2.5 mg daily started this admission. Consider addition of low-dose Aldactone as well as SGLT2 inhibitor (also with diabetes, on metformin as OP)
-On p.o. Lasix 40 mg daily. repeat BMP/proBNP in 1 week.
-Not a candidate for cardiac rehab due to deconditioning and need for PT/OT with plan for SNF upon discharge
-LDL 96. Outpatient dose of atorvastatin increased to 40 mg daily.
-Plan for possible discharge today noted
-Outpatient cardiac follow-up arranged
-Discussed with nursing
Progress Note - Psychology Associate
Subjective
Date of Service: July 21, 2024
No chest pain, shortness of breath. Reports feeling very weak/deconditioned
Objective
Labs:
07/21/24 05:06
07/21/24 06:20
Labs
Hgb 11.0 g/dL (12.0-16.0) L 07/21/24 05:06
Hct 33.3 % (37.0-47.0) L 07/21/24 05:06
Plt Count 397 10^3/uL (130-400) D 07/21/24 05:06
PT 14.0 Sec (11.4-14.6) 07/14/24 19:48
INR 1.03 07/14/24 19:48
APTT 59.3 Sec (23.4-35.0) H 07/14/24 19:48
Sodium 131 mmol/L (135-145) L 07/21/24 06:20
Potassium 4.1 mmol/L (3.5-5.1) 07/21/24 06:20
BUN 13 mg/dl (7-17) 07/21/24 06:20
Creatinine 0.6 mg/dL (0.6-1.0) 07/21/24 06:20
Glucose 152 mg/dl (70-99) H 07/21/24 06:20
Vital Signs and I&O:
Vital Signs
Temp Pulse Resp BP Pulse Ox
97.9 F 81 20 122/79 92
07/21/24 07:32 07/21/24 06:00 07/21/24 07:32 07/21/24 04:56 07/21/24 07:32
Vital Signs
Temp Pulse Resp BP Pulse Ox
97.9 F 81 20 122/79 92
07/21/24 07:32 07/21/24 06:00 07/21/24 07:32 07/21/24 04:56 07/21/24 07:32
Intake & Output
07/19/24 07/20/24 07/21/24 07/22/24
07:59 07:59 07:59 07:59
Intake Total 440 / 440 240 / 240 720 / 720
Output Total 1450 / 1450 2000 / 2000 2800 / 2800
Balance -1010 / -1010 -0 / -1760 -2079 /
Physical Exam
Physical Exam
GEN: No distress, awake, alert, oriented x3. sitting in chair
HEENT: supple, anicteric, mmm, eomi
LUNGS: CTA B/L, no wheezes
CV: Reg, S1/S2, 1/6 syst LSB
ABD: soft, BS+, NT/ND
EXT: No cyanosis, clubbing, edema
NEURO: Gross non-focal
SKIN: Warm, pink, dry. No rash. R wrist site c/d/i with 2+ radial pulse. dorsal aspect of wrist with small area of firmness, erythema, and warmth with small bloody opening
[2024-07-21] MEDS: LANTUS 0.12 UNITS SC (09:51)
[2024-07-21] MEDS: TOPROL XL 25 MG PO (09:54)
[2024-07-21 11:53] VITALS: BP 127/59
--- NOTE | 2024-07-21 11:55 | W.DCSUMMARY ---
Documented by User: Isa Sanchez MD, Resident 07/22/24 08:19
Discharge Summary
Discharge Data
Date of Admission: 07/12/24
Date of Discharge: 07/22/24
-
Pending Results: No
Hospital Course
Discharging Physician : Dr Isa Blank
Disposition : [facility]
Primary care physician : Gurvinder Fink
Principal Discharge diagnosis :
NSTEMI s/p PCI of proximal LAD
HFmrEF
Paraesophageal hernia
Atrial fibrillation with rapid ventricular response
Duodenal clot
Toxic metabolic encephalopathy
Hyperglycemia
Klebsiella UTI
Chronic Discharge diagnosis :
Hypertension
Anxiety
Hyperlipidemia
Hospital Course :
Patient is an 83y F with PMH significant for GERD / hiatal hernia, DM-II and DDD / back pain who presents to ED complaining of N/V, chest pain and back pain. Patient states that she has appreciated increased symptoms which she attributes to her
hiatal hernia over the past week or two. She cites reflux, epigastric discomfort and decreased appetite. She ran out of her omeprazole about 10 days ago and has been unable to get this refilled. Soon she felt nauseated and started to have retching
/ dry heaves. She had a few episodes of actual non-bloody emesis. Her symptoms lasted into the evening and patient presented to the ED for further evaluation and treatment. Upon arrival here, patient developed severe chest pain and midback pain.
CT scan was performed which showed large hiatal hernia with entire stomach in the thoracic cavity. NG placement was attempted unsuccessfully by ED staff. Patient had difficulty tolerating the procedure. Labs in the ED showed leukocytosis to 12,
no significant anemia with hemoglobin 14, hyponatremia and hypokalemia consistent with gastric volume loss. CT angio of chest with no evidence of aneurysm or dissection. After [address] the NG tube, she was then placed on NGT on
third attempt. GI was consulted for EGD. Patient was placed on rectal tube. EKG noted possible anterior lateral ST elevation with elevated troponin levels. Cardiology was urgently consulted. Rectal aspirin and IV beta-blockers were started.
Patient had a cath angioplasty and a proximal LAD stent placed. There was distal dissection suspected and a second overlapping stent was placed distally in the LAD. Patient briefly went into atrial fibrillation- NEW ONSET. And also she had a V-fib
arrest during the procedure self-limiting. Post procedure patient was noted to have a left facial droop. Stroke alert was called immediately. Stat CT head showing no acute intracranial findings.��CTA head/neck showed no LVO or significant
occlusion or thrombus. Minimally reduced LVEF of 45% on echo. Patient was started on IV Integrilin, given possible gastric outlet obstruction due to paraesophageal hernia. DAPT was unable to be given. Patient is not a candidate for OAC. Patient
was NPO overnight for EGD following day. EGD showed duodenal clot, large hiatal hernia, torturous esophagus, and feeding tube was successfully placed. Patient continued to be NPO, with low intermittent suction from NGT. Over the next 24 hours
patient developed afib with RVR. Amiodarone drip was started for rhythm control. IV Integrilin was switched to cangrelor. Positive urine cultures for Klebsiella, IV cefepime initiated. Upper GI series showed 9 cm hiatal hernia with no evidence of
obstruction. Patient was advanced to clears. IV PPI was started. IV Cangrelor was discontinued. She was eventually transitioned to PO ASA and Plavix. Sensitivities were positive for cefazolin on urine culture, patient completed the course abx.
Patient was tolerating clears and was then advanced to full liquid diet. Amiodarone drip was stopped and she was started on PO amiodarone TID with eventual taper to BID. No further recurrence of new onset atrial fibrillation [id number] score 3.
Per cardiology, patient not likely tolerate full anticoagulation due to the presence of duodenal ulcer with adherent clot. Patient was transitioned to full liquid diet from clears.
On the day of discharge, vitals are stable, patient is tolerating full liquid diet. Rectal tube was removed. Patient reports of feeling anxious because she is in the hospital during the heart line holiday season. Overall patient is medically
stable to be discharged to [facility].
Important imaging findings :
CT angiography
1.No evidence of thoracic aortic aneurysm or dissection. No pulmonary embolism.
2. Moderate coronary arterial calcification. Please correlate with symptoms of and risk factors for coronary artery disease, with further workup as clinically appropriate.
3. Large hiatal hernia, without evidence of incarceration.
Chest x-ray:
There is hiatal hernia better demonstrated on the 05/29/2023 examination
The tip of the nasogastric tube is not below the diaphragm but is at approximately the level of the esophagogastric junction accounting for the hiatal hernia. The nasogastric tube could be advanced for better positioning
Head/neck CTA
No [place] aneurysm or stenosis. No cerebral artery significant plaque, stenosis, thrombus, or occlusion. The cervical carotid and vertebral arteries are patent without significant plaque, stenosis, occlusion, or dissection. There is
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 The right vertebral artery is occluded at the V3 segment, with lack of intraluminal contrast opacification beyond the proximal intradural
component at the posterior margin of the occipital condyle. The left intradural vertebral artery is dominant and patent. 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
communicating artery.
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 Bilateral patent posterior communicating arteries. Degree of stenosis based on NASCET criteria.
Head CT
No acute intracranial abnormality noted. There is diffuse cortical atrophy as evidenced by prominence of the CSF spaces.
Additionally, there are patchy areas of low density in the periventricular and subcortical white matter bilaterally. These white matter changes are nonspecific but given the patient's age are most likely ischemic or degenerative in origin. Such
white matter changes are often seen in older individuals and typically do not correlate clinically.
Upper GI series
There is no obstructioN. There is 9 cm hiatal hernia with atlantoaxial volvuluS. There is mild prominence of the gastric rugae suggesting possible gastritis
Discharge Plan
-
Patient Disposition: Jail/SNF
Discharge Diagnosis/Procedures: NSTEMI, Angioplasty with stent to LAD x2
HFmrEF
Paraesophageal hernia
Atrial fibrillation with rapid ventricular response new onset
Duodenal clot
Toxic metabolic encephalopathy
Hyperglycemia
Klebsiella UTI
Hypertension
Anxiety
Hyperlipidemia
Condition: Fair
Diet: Low Cholesterol, Diabetic, Carb Controlled and Other diet
Additional Diets: full liquids with supplements for 2 weeks , then soft food diet, eat small meals
Blood Work: CBC, BMP in 1 week
Other Services: Cardiac Rehab
Activity Restrictions/Additional Instructions:
Please call to make appointments for Phase II Cardiac Rehab when/if ready (can not have ongoing Physical Therapy/OT/Nursing):
[facility]- Cardiac Rehab
[phone]
Instructions: Full liquid diet
Stand Alone Forms: DC Instructions- Cath/EP Lab
Referrals:
[facility] [Outside] (FAX [phone])
Xochitl German PA-C [Specified Professional Personl] - 08/23/24 12:40 pm (You have a cardiology follow-up appointment at the [place] office. Please call with questions)
Heath Kolb MD [Active] - in two to four weeks
Gurvinder Fink DO [Family Provider] - in less than 1 week
Additional Discharge Medication Instructions: Amiodarone 200 mg 1 tablet to be taken twice daily for 1 week only then 1 tablet to be taken once daily as of 07/28/24
Continue aspirin 81 mg and Plavix 75 mg once a day. Not a candidate for oral anticoagulation at this time. Would defer to GI/cardiology.
Lisinopril 2.5 mg take 1 tablet daily. Please see your family physician for review of all medications
Atorvastatin 40 mg take 1 tablet daily
Metoprolol succinate 25 mg take 1 tablet daily
Pantoprazole 40 mg take 1 tablet twice daily - for small bowel obstruction
Trazodone 25 mg once at night which will help with sleep
Furosemide 40 mg take 1 tablet daily. Monitor weight. Please follow-up with cardiology outpatient.
Stop amlodipine-benazepril, celecoxib, atenolol.
-With recent NSTEMI would require a cardiac rehab please call [phone] for an appointment.
-For diet, full liquid diet for the next 2 weeks. Then started on soft food diet. Follow-up outpatient with general surgeon Dr. Heath Crouch in within 2 to 4 weeks
-Check CBC, BMP in one week.
Prescriptions:
New
furosemide 40 mg Tablet
40 mg PO DAILY Qty: 30 0RF
atorvastatin 40 mg Tablet
40 mg PO QPM Qty: 30 0RF
trazodone 50 mg Tablet
25 mg PO HS Qty: 14 0RF
amiodarone 200 mg Tablet
200 mg PO BID Qty: 30 0RF
clopidogrel 75 mg Tablet
75 mg PO DAILY Qty: 30 0RF
pantoprazole 40 mg Tablet,Delayed Release (Dr/Ec)
40 mg PO BID Qty: 30 0RF
aspirin 81 mg Tablet,Chewable
81 mg feeding tube DAILY Qty: 30 0RF
metoprolol succinate 25 mg Tablet Extended Release 24 Hr
25 mg PO DAILY Qty: 30 0RF
lisinopril 2.5 mg Tablet
2.5 mg PO DAILY Qty: 30 0RF
potassium chloride 10 mEq Tablet,Er Particles/Crystals
10 meq PO DAILY Qty: 30 0RF
Continued
metformin 500 MG tablet extended release 24 hr
500 mg PO BID
sertraline 25 mg Tablet
25 mg PO QPM
gabapentin 100 mg Capsule
200 mg PO BID
vitamin E 268 mg (400 unit) Capsule
268 mg PO DAILY
cholecalciferol (vitamin D3) [Vitamin D3] 25 mcg (1,000 unit) Capsule
25 mcg PO DAILY
acetaminophen [Tylenol Extra Strength] 500 mg Tablet
1,000 mg PO BID
alprazolam [Xanax] 0.25 mg Tablet
0.25 mg PO DAILYPRN PRN (Reason: panic attacks)
Discontinued
atenolol 25 MG tablet
25 mg PO HS
omeprazole 20 MG capsule,delayed release(DR/EC)
20 mg PO DAILY
celecoxib [Celebrex] 200 mg Capsule
200 mg PO DAILY
atorvastatin [Lipitor] 20 mg Tablet
20 mg PO HS
azithromycin 250 mg Tablet
250 mg PO DAILY
propranolol 60 mg Capsule,Extended Release 24 Hr
60 mg PO HS
amlodipine-benazepril 5-40 mg capsule
1 cap PO DAILY
Discharge Orders:
Discharge Patient (As Directed); Ordered 07/21/24
Ordered By: Isa Sanchez
Care Plan Goals
Care Plan Goals:
Problem: Readiness for enhanced knowledge related to diagnosis and treatment plan
Goal: Understand your diagnosis and treatment plan needs, including medications if applicable.
Instructions: Know your diagnosis, underlying causes and treatment plan options, including medications if applicable. Consult with your health care team to learn about your diagnosis and treatment plan, including medications if applicable.
Discharge Date and Time
Discharge Date/Time: 07/21/24 14:38
Print Language: BANGLADESHI

Documented by User: Erlin Blank DO 07/22/24 12:17
Discharge Summary
Discharge Data
Date of Admission: 07/12/24
Date of Discharge: 07/22/24
Discharge Plan
-
Patient Disposition: Jail/SNF
Discharge Diagnosis/Procedures: NSTEMI, Angioplasty with stent to LAD x2
HFmrEF
Paraesophageal hernia
Atrial fibrillation with rapid ventricular response new onset
Duodenal clot
Toxic metabolic encephalopathy
Hyperglycemia
Klebsiella UTI
Hypertension
Anxiety
Hyperlipidemia
Condition: Fair
Diet: Low Cholesterol, Diabetic, Carb Controlled and Other diet
Additional Diets: full liquids with supplements for 2 weeks , then soft food diet, eat small meals
Blood Work: CBC, BMP in 1 week
Other Services: Cardiac Rehab
Activity Restrictions/Additional Instructions:
Please call to make appointments for Phase II Cardiac Rehab when/if ready (can not have ongoing Physical Therapy/OT/Nursing):
[facility]- Cardiac Rehab
[phone]
Instructions: Full liquid diet
Stand Alone Forms: DC Instructions- Cath/EP Lab
Referrals:
[facility] [Outside] (FAX [phone])
Xochitl German PA-C [Specified Professional Personl] - 08/23/24 12:40 pm (You have a cardiology follow-up appointment at the [place] office. Please call with questions)
Heath Kolb MD [Active] - in two to four weeks
Gurvinder Fink DO [Family Provider] - in less than 1 week
Additional Discharge Medication Instructions: Amiodarone 200 mg 1 tablet to be taken twice daily for 1 week only then 1 tablet to be taken once daily as of 07/28/24
Continue aspirin 81 mg and Plavix 75 mg once a day. Not a candidate for oral anticoagulation at this time. Would defer to GI/cardiology.
Lisinopril 2.5 mg take 1 tablet daily. Please see your family physician for review of all medications
Atorvastatin 40 mg take 1 tablet daily
Metoprolol succinate 25 mg take 1 tablet daily
Pantoprazole 40 mg take 1 tablet twice daily - for small bowel obstruction
Trazodone 25 mg once at night which will help with sleep
Furosemide 40 mg take 1 tablet daily. Monitor weight. Please follow-up with cardiology outpatient.
Stop amlodipine-benazepril, celecoxib, atenolol.
-With recent NSTEMI would require a cardiac rehab please call [phone] for an appointment.
-For diet, full liquid diet for the next 2 weeks. Then started on soft food diet. Follow-up outpatient with general surgeon Dr. Heath Crouch in within 2 to 4 weeks
-Check CBC, BMP in one week.
Prescriptions:
New
furosemide 40 mg Tablet
40 mg PO DAILY Qty: 30 0RF
atorvastatin 40 mg Tablet
40 mg PO QPM Qty: 30 0RF
trazodone 50 mg Tablet
25 mg PO HS Qty: 14 0RF
amiodarone 200 mg Tablet
200 mg PO BID Qty: 30 0RF
clopidogrel 75 mg Tablet
75 mg PO DAILY Qty: 30 0RF
pantoprazole 40 mg Tablet,Delayed Release (Dr/Ec)
40 mg PO BID Qty: 30 0RF
aspirin 81 mg Tablet,Chewable
81 mg feeding tube DAILY Qty: 30 0RF
metoprolol succinate 25 mg Tablet Extended Release 24 Hr
25 mg PO DAILY Qty: 30 0RF
lisinopril 2.5 mg Tablet
2.5 mg PO DAILY Qty: 30 0RF
potassium chloride 10 mEq Tablet,Er Particles/Crystals
10 meq PO DAILY Qty: 30 0RF
Continued
metformin 500 MG tablet extended release 24 hr
500 mg PO BID
sertraline 25 mg Tablet
25 mg PO QPM
gabapentin 100 mg Capsule
200 mg PO BID
vitamin E 268 mg (400 unit) Capsule
268 mg PO DAILY
cholecalciferol (vitamin D3) [Vitamin D3] 25 mcg (1,000 unit) Capsule
25 mcg PO DAILY
acetaminophen [Tylenol Extra Strength] 500 mg Tablet
1,000 mg PO BID
alprazolam [Xanax] 0.25 mg Tablet
0.25 mg PO DAILYPRN PRN (Reason: panic attacks)
Discontinued
atenolol 25 MG tablet
25 mg PO HS
omeprazole 20 MG capsule,delayed release(DR/EC)
20 mg PO DAILY
celecoxib [Celebrex] 200 mg Capsule
200 mg PO DAILY
atorvastatin [Lipitor] 20 mg Tablet
20 mg PO HS
azithromycin 250 mg Tablet
250 mg PO DAILY
propranolol 60 mg Capsule,Extended Release 24 Hr
60 mg PO HS
amlodipine-benazepril 5-40 mg capsule
1 cap PO DAILY
Discharge Orders:
Discharge Patient (As Directed); Ordered 07/21/24
Ordered By: Isa Sanchez
Care Plan Goals
Care Plan Goals:
Problem: Readiness for enhanced knowledge related to diagnosis and treatment plan
Goal: Understand your diagnosis and treatment plan needs, including medications if applicable.
Instructions: Know your diagnosis, underlying causes and treatment plan options, including medications if applicable. Consult with your health care team to learn about your diagnosis and treatment plan, including medications if applicable.
Discharge Date and Time
Discharge Date/Time: 07/21/24 14:38
Print Language: BANGLADESHI
[2024-07-21 12:11] LABS: Glucose - Point of Care 178 mg/dl (70-99)
[2024-07-21 12:27] LABS: COVID-19 Antigen Negative (Negative)
--- NOTE | 2024-07-21 13:34 | CM ---
Chart reviewed. Chart reviewed. Patient is independent of ADLS, lives alone in a [facility], ambulates with a RW, currently uses [facility] for PT/OT. PT evaluation recommending SNF. [facility] accepted patient. Plan is for the patient to go to
[facility] at 3pm by wheelchair van
--- NOTE | 2024-07-21 14:15 | PTCARENOTE ---
Pt received this am awake, alert and oriented. Denies any pain or discomfort. Rectal tube discontinued as ordered. Pt assisted to the chair with 1 assist and the walker. Pt very weak, gait unsteady. Pt tolerated oob for 4-5 hours. Pt discharged to
[facility] via wheelchair van at 1415. Report called to nurse receiving pt.
== END 2024-07-21 14:38 | DRG 981 ==
LOC: IVU 06:29
PROVIDERS: Hospitalist; Internal Medicine Cardiovascular Disease; Nurse Practitioner Adult Health; Student in an Organized Health Care Education/Training Program; ADMITTING PHYSICIAN Hospitalist; ATTENDING PHYSICIAN Internal Medicine; CONSULT PHYSICIAN Internal Medicine Critical Care Medicine; EMERGENCY PHYSICIAN Emergency Medicine; FAMILY PHYSICIAN Internal Medicine; OTHER PHYSICIAN Internal Medicine Cardiovascular Disease; OTHER PHYSICIAN Psychiatry & Neurology Neurology; OTHER PHYSICIAN Specialist; OTHER PHYSICIAN Surgery
PROC: B2111ZZ Fluoroscopy of Multiple Coronary Arteries using Low Osmolar Contrast (ICD-10-PCS; 2024-07-14)
PROC: 4A023N7 Measurement of Cardiac Sampling and Pressure, Left Heart, Percutaneous Approach (ICD-10-PCS; 2024-07-14)
PROC: B240ZZ3 Ultrasonography of Single Coronary Artery, Intravascular (ICD-10-PCS; 2024-07-14)
PROC: 027035Z Dilation of Coronary Artery, One Artery with Two Drug-eluting Intraluminal Devices, Percutaneous Approach (ICD-10-PCS; 2024-07-14)
PROC: 0D9680Z Drainage of Stomach with Drainage Device, Via Natural or Artificial Opening Endoscopic (ICD-10-PCS; 2024-07-15)
DX: K44.9 Diaphragmatic hernia without obstruction or gangrene (principal); G92.8 Other toxic encephalopathy; I21.29 ST elevation (STEMI) myocardial infarction involving other sites; I49.01 Ventricular fibrillation; I25.42 Coronary artery dissection; K26.4 Chronic or unspecified duodenal ulcer with hemorrhage; I50.21 Acute systolic (congestive) heart failure; N39.0 Urinary tract infection, site not specified; E87.1 Hypo-osmolality and hyponatremia; I47.21 Torsades de pointes; I97.710 Intraoperative cardiac arrest during cardiac surgery; I97.51 Accidental puncture and laceration of a circulatory system organ or structure during a circulatory system procedure; Q39.8 Other congenital malformations of esophagus; K31.1 Adult hypertrophic pyloric stenosis; I11.0 Hypertensive heart disease with heart failure; I48.0 Paroxysmal atrial fibrillation; B96.1 Klebsiella pneumoniae [K. pneumoniae] as the cause of diseases classified elsewhere; E87.6 Hypokalemia; R47.1 Dysarthria and anarthria; R29.810 Facial weakness; D64.9 Anemia, unspecified; Y84.0 Cardiac catheterization as the cause of abnormal reaction of the patient, or of later complication, without mention of misadventure at the time of the procedure; E11.65 Type 2 diabetes mellitus with hyperglycemia; F41.0 Panic disorder [episodic paroxysmal anxiety]; E78.00 Pure hypercholesterolemia, unspecified; K21.9 Gastro-esophageal reflux disease without esophagitis; M51.16 Intervertebral disc disorders with radiculopathy, lumbar region; E86.0 Dehydration; E66.9 Obesity, unspecified; R13.10 Dysphagia, unspecified; I25.10 Atherosclerotic heart disease of native coronary artery without angina pectoris; D72.829 Elevated white blood cell count, unspecified; K58.1 Irritable bowel syndrome with constipation; K75.4 Autoimmune hepatitis; Z91.199 Patient's noncompliance with other medical treatment and regimen due to unspecified reason; Z79.84 Long term (current) use of oral hypoglycemic drugs; Z82.49 Family history of ischemic heart disease and other diseases of the circulatory system; Z11.52 Encounter for screening for COVID-19; Z68.29 Body mass index [BMI] 29.0-29.9, adult
CPT/HCPCS: 70450; 70496; 70498; 71045; 71275; 74240; 80048; 80053; 80061; 81003; 81015; 82533; 82962; 83036; 83605; 83690; 83735; 83880; 83930; 83935; 84100; 84300; 84443; 84484; 85025; 85027; 85347; 85610; 85730; 87077; 87086; 87186; 87811; 92526; 92610; 92978; 93005; 93306; 93458; 96361; 96374; 96375; 97163; 97167; 97530; 99285; C1725; C1753; C1769; C1874; C1894; C9460; C9600; J1327; Q9967

== ENCOUNTER → 2024-08-26 12:42 | Outpatient (REF) | payer MEDICARE, SELFPAY ==
[2024-08-26 16:27] LABS: Hematocrit 36.1 % (37.0-47.0); Hemoglobin 11.8 g/dL (12.0-16.0); Mean Corp Hgb Conc. 32.7 g/dL (33.0-37.0); Mean Corpuscular Hgb 30.6 pg (27.0-31.0); Mean Corpuscular Volume 93.5 fL (81.0-99.0); Mean Platelet Volume 11.6 fL (7.4-10.4); Platelet Count 273 10^3/uL (130-400); Red Blood Cell Count 3.86 10^6/uL (4.20-5.40); Red Cell Dist. Width 13.7 % (11.5-14.5); White Blood Cell Count 6.8 10^3/uL (4.8-10.8)
[2024-08-26 16:35] LABS: Blood Urea Nitrogen 32 mg/dl (7-17); Calcium 9.2 mg/dl (8.4-10.2); Carbon Dioxide 31 mmol/L (22-30); Chloride 93 mmol/L (98-107); Glucose 115 mg/dl (70-99); Potassium 4.1 mmol/L (3.5-5.1); Sodium 136 mmol/L (135-145); eGFR 44.64
== END ==
LOC: HWLAB 12:42
PROVIDERS: ATTENDING PHYSICIAN Physician Assistant Medical; FAMILY PHYSICIAN Internal Medicine
DX: I25.5 Ischemic cardiomyopathy (principal); K44.9 Diaphragmatic hernia without obstruction or gangrene; K21.9 Gastro-esophageal reflux disease without esophagitis
CPT/HCPCS: 36415; 80048; 85027

== ENCOUNTER → 2024-08-31 14:46 | Outpatient (REF) | payer MEDICARE, SELFPAY | LOC: HWRAD 14:46 | PROVIDERS: ATTENDING PHYSICIAN Internal Medicine | DX: R05.3 Chronic cough (principal) | CPT/HCPCS: 71046 ==

== ENCOUNTER 2024-12-08 06:12 | Outpatient (RCR) | payer SELFPAY | END 2024-12-09 07:28 | disposition home or self-care (01) | LOC: ROT 06:12 | PROVIDERS: ATTENDING PHYSICIAN Internal Medicine | DX: Z02.4 Encounter for examination for driving license (principal) ==

== ENCOUNTER → 2025-01-31 12:19 | Outpatient (REF) | payer MEDICARE, SELFPAY ==
[2025-01-31 14:34] LABS: Urine Character Cloudy (Clear)
[2025-01-31 14:41] LABS: Urine White Cell 26-30 /HPF (0-5)
[2025-01-31 14:44] LABS: ALT (SGPT) 36 U/L (0-35); AST (SGOT) 36 U/L (14-36); Albumin 4.3 g/dl (3.5-5.0); Alkaline Phosphatase 82 U/L (38-126); Blood Urea Nitrogen 40 mg/dl (7-17); Calcium 9.7 mg/dl (8.4-10.2); Carbon Dioxide 32 mmol/L (22-30); Chloride 102 mmol/L (98-107); Glucose 133 mg/dl (70-99); HDL Cholesterol 61 mg/dl; LDL Cholesterol, Calculated 51 mg/dl; Potassium 4.3 mmol/L (3.5-5.1); Sodium 139 mmol/L (135-145); Total Protein 6.8 g/dl (6.3-8.2); Very Low Density Lipoprotein 25 mg/dl (0-30); eGFR 40.30
[2025-01-31 14:57] LABS: Hematocrit 36.1 % (37.0-47.0); Hemoglobin 11.5 g/dL (12.0-16.0); Mean Corp Hgb Conc. 31.9 g/dL (33.0-37.0); Mean Corpuscular Volume 93.0 fL (81.0-99.0); Nucleated Red Blood Cells % 0 %; Platelet Count 366 10^3/uL (130-400); Red Cell Dist. Width 13.5 % (11.5-14.5)
[2025-01-31 15:15] LABS: TSH 41.10 uIU/ml (0.47-4.68)
== END ==
LOC: HWWDC 12:19
PROVIDERS: ATTENDING PHYSICIAN Internal Medicine; OTHER PHYSICIAN Internal Medicine Cardiovascular Disease; REFERRING PHYSICIAN Surgery
DX: E78.2 Mixed hyperlipidemia (principal); R35.0 Frequency of micturition; E11.9 Type 2 diabetes mellitus without complications; K21.9 Gastro-esophageal reflux disease without esophagitis; I10 Essential (primary) hypertension; Z12.31 Encounter for screening mammogram for malignant neoplasm of breast
CPT/HCPCS: 36415; 77063; 77067; 80053; 80061; 81003; 81015; 82550; 84443; 85025

== ENCOUNTER → 2025-02-15 10:42 | Outpatient (REF) | payer MEDICARE, SELFPAY | LOC: WDC 10:42 | PROVIDERS: ATTENDING PHYSICIAN Internal Medicine | DX: R92.8 Other abnormal and inconclusive findings on diagnostic imaging of breast (principal) | CPT/HCPCS: 77065 ==

== ENCOUNTER → 2025-05-05 16:03 | Outpatient (REF) | payer MEDICARE, SELFPAY | LOC: HWRCS 16:03 | PROVIDERS: ATTENDING PHYSICIAN Internal Medicine Cardiovascular Disease; FAMILY PHYSICIAN Internal Medicine | DX: I25.5 Ischemic cardiomyopathy (principal) | CPT/HCPCS: 93306 ==